=== PATIENT | male | born 1945 | race Caucasian/White ===

== ENCOUNTER → 2016-11-27 | Outpatient (CLI) | payer MEDICARE ==
[~2016-11-27] MED LIST: ASPI-587 PO; ATEN50TA; AZTH250C PO; CEFU500T5 PO; LISI20TA; OMEG-85 PO; WRF5T
--- OUTSIDE RECORDS SUMMARY | 2016-11-27 08:47 | XMS REPORT ---
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
--- NOTE | 2016-11-28 10:18 | ECHOCARDIOGRAPHY REPORT ---
PROCEDURE PHYSICIAN: SETH ENRIQUEZ DATE OF PROCEDURE: 11/27/2016 TWO DIMENSIONAL ECHOCARDIOGRAM REPORT PRIMARY PHYSICIAN: OTHER PHYSICIAN: REFERRING PHYSICIAN: Dr. Conn ORDERING PHYSICIAN: INDICATION FOR THE PROCEDURE: Hypertension MEASUREMENTS DERIVED VALUES LV DIAMETER (LAX) NORMALS NORMALS Diastolic 4.5 (3.6-5.2) Eject. Fract. 60% (60%+/-6%) Systolic (2.3-3.9) Diastolic Vol. % Shortening (0.22-0.42) Systolic Vol. Aortic Root IVS THICKNESS Diastolic 1.2 (0.6-1.1) LVPW THICKNESS Diastolic 1.2 (0.6-1.1) LA DIAMETER Systolic 4.2 (2.1-3.7) FINDINGS: 1. Technical quality is good. 2. The left ventricle is normal in size with moderate left ventricular hypertrophy noted diffusely. Systolic function appeared to be normal. Estimated ejection fraction 60%. Diastolic dysfunction is suggested by Doppler. 3. The left atrium is mildly dilated. No clot or thrombus were seen within the left atrium. 4. The right atrium and right ventricle are normal in size. No clot or thrombus were seen within the right side. 5. Mitral valve is normal in morphology with mild mitral regurgitation noted by color Doppler flow. No mitral valve prolapse. No mitral valve stenosis. 6. Aortic valve leaflets were not well visualized. There is no significant aortic valve stenosis or regurgitation was seen. 7. Tricuspid valve is normal in morphology with mild tricuspid regurgitation noted by color Doppler flow. Doppler across tricuspid valve estimated pulmonary artery pressure of 30+ right atrial pressure. 8. Pulmonic valve is functioning normally. 9. No pericardial effusion. CONCLUSION: 1. Normal left ventricular size with mild to moderate left ventricular hypertrophy noted diffusely. Systolic function appeared to be normal. Estimated ejection fraction 60%. Diastolic dysfunction is suggested by Doppler. 2. Left atrium is mildly dilated. 3. Mild mitral regurgitation. Mild tricuspid regurgitation. 4. Pulmonary hypertension with estimated pulmonary artery pressure of 40 mmHg. Job ID: [id number] Dictated Date: 11/27/2016 16:56:15 It Director Date: 11/28/2016 10:11:51 / parul
== END ==
LOC: CARD 08:44
PROVIDERS: ATTEND Internal Medicine Cardiovascular Disease
DX: I10 Essential (primary) hypertension (principal); E78.2 Mixed hyperlipidemia; E78.1 Pure hyperglyceridemia; I48.0 Paroxysmal atrial fibrillation
CPT/HCPCS: 93306

== ENCOUNTER → 2018-01-21 | Outpatient (CLI) | payer MEDICARE ==
[~2018-01-21] MED LIST changes: +CATHETER FLUSH 10 ML SYR IV PRN
[2018-01-21 09:25] VITALS: BP_SYST 167; BP_SYST 180; BP_DIAS 103; BP_DIAS 73
[2018-01-21 09:28] VITALS: BP 139/78
--- NOTE | 2018-01-21 17:46 | STRESS TEST ---
DATE OF SERVICE: 01/21/2018 EXERCISE MYOVIEW STRESS TEST REPORT REFERRING PHYSICIAN: Dr. Leonel Conn. Baseline heart rate is 98. Baseline blood pressure 136/75. Baseline EKG sinus rhythm with frequent PVCs, ventricular couplets. In summary, the patient was injected with 10.59 mCi of technetium-99 Myoview and the resting images were obtained. Then, the patient started to exercise with a baseline heart rate, blood pressure, EKG mentioned above. During exercise, the patient was noted to have frequent PVCs, ventricular couplets and few episodes of 3 to 4 beats nonsustained ventricular tachycardia. Blood pressure was 180/103. EKG otherwise showing minimal nondiagnostic changes. During recovery, heart rate and blood pressure returned to baseline. Continue to have frequent ectopy. The resting and stress images were reviewed and compared in the short axis, horizontal long axis, and vertical long axis views. Review of the images showed good radiotracer uptake with no significant ischemia or infarction on SPECT images. SSS is 0, TID value 1.02. On the gated images, the left ventricle appeared to be normal size with normal contractility. Calculated ejection fraction 77%. CONCLUSION: 1. Poor exercise tolerance a total of 3 minutes on standard Raymundo protocol, total of 4.6 METS achieving 97% of maximum expected heart rate. 2. Severe hypertensive response to exercise returned to baseline during recovery. 3. Frequent PVCs noted at rest and increased ectopy with exercise. Few episodes of nonsustained ventricular tachycardia with 3 to 4 beats noted during exercise. 4. No ischemia or infarction on SPECT images. 5. Normal left ventricular size with normal contractility. Calculated ejection fraction of 77%. Job ID: [id number] DocumentID: [id number] Dictated Date: 01/21/2018 14:12:37 It Administrative Assistant Date: 01/21/2018 17:45:43 Dictated By: SETH ENRIQUEZ MD
== END ==
LOC: CARD 07:09
PROVIDERS: ATTEND Internal Medicine Cardiovascular Disease
DX: I48.0 Paroxysmal atrial fibrillation (principal); I10 Essential (primary) hypertension; E78.5 Hyperlipidemia, unspecified
CPT/HCPCS: 78452; 93017

== ENCOUNTER → 2018-01-28 | Outpatient (CLI) | payer MEDICARE ==
[~2018-01-28] MED LIST changes: -CATHETER FLUSH 10 ML SYR IV PRN
== END ==
LOC: CARD 08:01
PROVIDERS: ATTEND Internal Medicine Interventional Cardiology
DX: I47.2 Ventricular tachycardia (principal); I48.0 Paroxysmal atrial fibrillation
CPT/HCPCS: 93225; 93226

== ENCOUNTER 2018-02-02 06:51 | Day surgery (SDC) | payer MEDICARE ==
[2018-02-02] VITALS (11 sets, daily range): BP systolic 115–153; BP diastolic 69–98
[~2018-02-02] VITALS: Ht 190.5 cm; Wt 89.8 kg
[~2018-02-02 06:51] MED LIST changes: -WRF5T; +WRF5T PO
[2018-02-02] MEDS ORDERED: HEParin (CATH LAB) 2,000 ML IV ONE (06:53)
[2018-02-02] MEDS ORDERED: NS IV 1000 ML 1,000 ML ONE (06:53)
--- OUTSIDE RECORDS SUMMARY | 2018-02-02 06:54 | XMS REPORT ---
Author JESSICA Fofana [facility] eClinicalWorks Address Unknown Phone Unavailable Care Team Providers Care Bulk Station Operator Name Role Phone JESSICA BROWN CP Unavailable Allergies No Known Allergies Problems No Known Problems Medications No Known Medications Procedures Procedure Coding System Code Date SINGLE IMMUNIZATION ADMIN CPT-4 98847 February 22, 2016 PCV 13 CPT-4 43027 February 22, 2016 Results No Known Results Immunizations Vaccine Administration Date PCV 13 February 22, 2016 Summary Purpose eClinicalWorks Submission
[2018-02-02] MEDS ORDERED: NS IV 1000 ML 1,000 ML IV SCH ×2 (07:00→08:54)
[2018-02-02 07:18] LABS: HEMOGLOBIN 15.4 G/DL (13.3-17.7); MEAN PLATELET VOLUME 10.9 FL (7.4-10.4); RED BLOOD COUNT 4.7 10^6/uL (4.35-5.85); RED CELL DISTRIBUTION WIDTH 13.4 % (10.0-14.5); WHITE BLOOD COUNT 6.1 10^3/uL (4.3-11.0)
--- NOTE | 2018-02-02 07:23 | Diagnostic Imaging Report ---
CLINICAL INDICATION: Precath with possible coronary angioplasty/stent. No chest complaints. EXAM: Portable chest x-ray upright view. COMPARISONS: Chest x-ray dated 02/16/2014. FINDINGS: Lungs/pleura: Lungs are clear. There is no pneumothorax. There is no pleural effusion. Mediastinum: Unremarkable. Pulmonary vasculature: Unremarkable. Heart: Unremarkable. Bones/extrathoracic soft tissue: There are moderately hypertrophic spurs seen throughout the thoracic spine. IMPRESSION: There is no radiographic evidence of acute cardiopulmonary process. Dictated by: Dictated on workstation # [id number]
[2018-02-02] MEDS ORDERED: METO50TA15 PO (07:32)
[2018-02-02] MEDS ORDERED: WARF-48 PO (07:32)
[2018-02-02] MEDS ORDERED: METF500T4 PO (07:32)
[2018-02-02] MEDS ORDERED: LOSA100T28 PO (07:32)
[2018-02-02 07:41] LABS: INR 1.3 (0.8-1.4); PROTHROMBIN TIME PATIENT 16.5 SEC (12.2-14.7)
[2018-02-02 07:47] LABS: ALANINE AMINOTRANSFERASE 28 U/L (0-55); ALBUMIN 4.5 GM/DL (3.2-4.5); ALKALINE PHOSPHATASE 65 U/L (40-136); BILIRUBIN,TOTAL 1.4 MG/DL (0.1-1.0); BUN/CREATININE RATIO 23; CALCIUM 9.5 MG/DL (8.5-10.1); CARBON DIOXIDE 28 MMOL/L (21-32); CHLORIDE 104 MMOL/L (98-107); CHOLESTEROL 151 MG/DL (< 200); CREATININE SERUM 1.02 MG/DL (0.60-1.30); GFR ESTIMATED > 60; GLUCOSE 166 MG/DL (70-105); HDL CHOLESTEROL 46 MG/DL (40-60); POTASSIUM 3.6 MMOL/L (3.6-5.0); SODIUM 141 MMOL/L (135-145); TRIGLYCERIDES 85 MG/DL (<150); VLDL CHOLESTEROL 17 MG/DL (5-40)
[2018-02-02] MEDS ORDERED: LIDOCAINE 1% INJ 50 ML (XYLOCAINE) VIAL ONE (08:02)
[2018-02-02] MEDS ORDERED: fentaNYL INJECTION 100 MCG/2 ML AMP ONE (08:22)
[2018-02-02] MEDS ORDERED: MIDAZOLAM 5 MG/5 ML (VERSED) VIAL ONE (08:22)
--- NOTE | 2018-02-02 08:24 | Cardiac Procedure Note-CS/ASA ---
Pre-Procedure Note Pre-Op Procedure Note H&P Reviewed The H&P was reviewed, patient examined and no changes noted. Date H&P Reviewed: Feb 02, 2018 Time H&P Reviewed: 08:24 Conscious Sedation Pre-Proced Time Reviewed: 08:24 ASA Class: 3 Airway Mallampati Classification: (douglas appropriate class) I. II. III, IV Lungs Heart ASA score ASA 1: a normal healthy patient ASA 2: a patient with a mild systemic disease (mid diabetes, controlled hypertension, obesity X ASA 3: a patient with a severe systemic disease that limits activity (angina , COPD, prior Myocardial infarction) ASA 4: a patient with an incapacitating disease that is a constant threat to life (CHF, renal failure) ASA 5: a moribund patient not expected to survive 24 hrs. (ruptured aneurysm) ASA 6: a declared brain patient whose organs are being harvested. For emergent operations, add the letter E after the classification Grade 3 Sedation Plan: Analgesia, Amnesia, Plan communicated to team members, Discussed options with patient/fam, Discussed risks with patient/fam Note The patient is an appropriate candidate to undergo the planned procedure, sedation, and anesthesia. The patient immediately re-assessed prior to indication. SETH ENRIQUEZ MD Feb 02, 2018 08:24
--- NOTE | 2018-02-02 08:57 | Discharge Inst-Post CATH ---
Discharge Inst-CATH Post Cardiac Cath D/C Inst Follow Up/Plan Hold Metformin for 48 hours Start Coumadin today PT/INR in one week Appointment with Dr Nobles in [address] García this week CARDIAC CATH DISCHARGE INSTRUCTIONS *Hold Metformin for 48 hours post heart cath. ACTIVITY * Go Home directly and rest. * Limit activity of the leg (or wrist if it was used) for 7 days including aerobics, swimming, jogging, bicycling, etc. * Restrict stair-climbing for 7 days if possible, if not, climb up with your non -cath leg, then bring together on the same step. * Avoid lifting, pushing, pulling or excessive movement of the affected extremity for 7 days. * Customary sexual activity may be resumed after 2 days-use caution not to use a position that strains or causes pain to the affected extremity. * No driving for 24 hours. * NO SMOKING. * Avoid straining for bowel movements for 7 days. * Gentle walking on level ground is allowed. * Returning to work will depend on the type of procedure and the results. Your doctor will discuss this with you. CALL YOUR DOCTOR FOR ANY OF THE FOLLOWING: *If bleeding from the puncture site occurs- Apply gentle pressure to site with clean cloth and call your doctor or EMS. * If a knot or lump forms under the skin, increases in size, or causes pain. * If bruising appears to be worsening or moving further down your leg instead of disappearing. * Temperature above 101 F. CARE OF YOUR GROIN INCISION; * Bruising or purple discoloration of the skin near the puncture site is common. * You may shower only, no bathtub bathing for 5 days. Be careful to avoid slipping as your leg may feel stiff. * If a closure device was used on your femoral artery, please see the attached guide regarding care of the device and your leg. * REMOVE the dressing from your groin the next day after your procedure in the shower. CARE OF YOUR WRIST INCISION; * Bruising or purple discoloration of the skin near the puncture site is common. * You may shower. * DO NOT submerge wrist. * Remove dressing in 24 hours. SETH NOBLES MD Feb 02, 2018 08:57
[2018-02-02] MEDS ORDERED: PATIENT MAY USE OWN MEDS, ALL PO SCH (09:00)
--- NOTE | 2018-02-02 09:02 | Cardiac Cath Report ---
Cardiac Cath Report Physician (s)/Business Mail Entry Clerk (s) Physician SETH ENRIQUEZ MD Pre-Procedure Diagnosis Pre-Procedure Diagnosis: Nonsustained ventricular tachycardia Post-Procedure Note Procedure Start Date: Feb 02, 2018 Name of Procedure: Left heart catheterization Aortic root angiogram Findings/Procedure Note PROCEDURE NOTE: 72 years old gentleman with history of diabetes mellitus, history of atrial septal defect repair, noted to have frequent premature ventricular contractions and multiple episodes of nonsustained ventricular tachycardia, had a normal stress test, referred for EP evaluation, recommendation was to proceed with coronary angiogram and rule out any underlying coronary artery disease. After explaining the procedure to the patient, all pros and cons were explained, all questions were answered. The patient signed the consent and then she was placed on the cardiac catheterization laboratory. The patient was placed on the cardiac catheterization laboratory. Groin was prepped SL fashion local anesthesia was used. Sheath placed in the right femoral artery. Shelbi right and left catheter were used to access the coronary system. Pigtail was used to access the left ventricular cavity. Left ventriculogram was done Aortic root angiogram was done At the end of the procedure the sheath was removed. Closure device was used FINDINGS: Hemodynamics LV 123/17, end-diastolic pressure of 17 Aorta 116/59 mean of 81 ANATOMY: Left Main is free of obstructive disease Left Anterior Descending has mild to moderate disease in the proximal portion, nonobstructive disease Left Circumflex is dominant artery with mild disease nonobstructive disease Right Coronory Artery a small nondominant artery with no obstructive disease LV Gram was done in the right anterior oblique and left anterior oblique position, normal left ventricular size and function and normal contractility estimated ejection fraction 60 percent Aorta evaluation done with aortic root angiogram which showed the aortic root is normal, aortic valve is normal, ascending aorta portion of the aortic arch and descending aorta were normal Fluoroscopy showed closure device probably at the intra-atrial septum for ASD CONCLUSION: 1. Mild to moderate disease in the proximal LAD, nonobstructive disease 2. Dominant left circumflex system with no significant obstructive disease 3. Normal left ventricular size and systolic function estimated ejection fraction 60 percent 4. Normal aortic root and thoracic aorta DISCUSSION AND RECOMMENDATION: I will continue maximizing medical therapy. Arrange for EP evaluation as soon as possible Anesthesia Type: Conscious Sedation Estimated blood loss (mL): 10 ml Contrast Amount: 83 ml Total Radiation Dose: 646 mGy Post-Procedure Diagnosis Post-operative diagnosis: Nonsustained ventricular tachycardia Coronary artery disease Atrial septal defect Diabetes mellitus SETH ENRIQUEZ MD Feb 02, 2018 09:01
== END 2018-02-02 13:52 | disposition home or self-care (01) ==
LOC: CATH 06:51 → SURG 09:24 → CATH 13:52
PROVIDERS: ATTEND Internal Medicine Cardiovascular Disease
DX: I47.2 Ventricular tachycardia (principal); E11.9 Type 2 diabetes mellitus without complications; I25.10 Atherosclerotic heart disease of native coronary artery without angina pectoris; I48.0 Paroxysmal atrial fibrillation; I65.29 Occlusion and stenosis of unspecified carotid artery; Z88.1 Allergy status to other antibiotic agents; Z88.0 Allergy status to penicillin; Z88.8 Allergy status to other drugs, medicaments and biological substances; Z79.899 Other long term (current) drug therapy; Z79.01 Long term (current) use of anticoagulants; Z79.82 Long term (current) use of aspirin; I11.9 Hypertensive heart disease without heart failure; E78.5 Hyperlipidemia, unspecified; E78.1 Pure hyperglyceridemia; Z11.2 Encounter for screening for other bacterial diseases
CPT/HCPCS: 36415; 71045; 80053; 80061; 85027; 85610; 85730; 87081; 93005; 93458; 93567

== ENCOUNTER → 2018-02-12 | Outpatient (CLI) | payer MEDICARE ==
[~2018-02-12] MED LIST changes: +LOSA100T28 PO; +METF500T4 PO; +METO50TA15 PO; +WARF-48 PO
== END ==
LOC: CARD 13:54
PROVIDERS: ATTEND Internal Medicine Interventional Cardiology
DX: I48.0 Paroxysmal atrial fibrillation (principal); I47.2 Ventricular tachycardia; I11.9 Hypertensive heart disease without heart failure; E78.5 Hyperlipidemia, unspecified
CPT/HCPCS: 93225; 93226

== ENCOUNTER → 2018-10-14 | Day surgery (SDC) | payer MEDICARE ==
[~2018-10-14] VITALS: Ht 190.5 cm; Wt 89.8 kg
[~2018-10-14] MED LIST changes: +LIDOCAINE 1% INJ 20 ML 20 ML VIAL ONE; -LOSA100T28 PO; +LOSA100T8 PO; +METF-397 PO; -METF500T4 PO
[2018-10-14 09:16] VITALS: BP 119/64
--- NOTE | 2018-10-14 10:05 | Implantation of Loop Monitor ---
Implant of Loop Monitior IMPLANTATION OF LOOP MONITOR REPORT DATE OF PROCEDURE: 10/14/18 PREOP DIAGNOSIS: paroxysmal atrial fibrillation POSTOP DIAGNOSIS: paroxysmal atrial fibrillation PROCEDURE DETAILS: The patient is a 72 male with history of paroxysmal atrial fibrillation requiring long-term surveillance. Therefore implantable loop recorder was discussed and agreed with the patient. Informed consent was taken. All risks and complications were discussed at length. The patient was draped and prepped in the usual sterile fashion. Local anesthesia was lidocaine, which was given in the substernal area close to the 4th intercostal space. Loop monitor [employer]onic [id number] was implanted according to the protocol. Steri-Strips were placed at the end of the procedure. There were no complications and the patient tolerated the procedure well. ANESTHESIA: Local anesthesia with lidocaine. COMPLICATIONS: None CONTRAST/FLUOROSCOPY: None CONCLUSION: successful loop recorder implantation with no complication FINAL DIAGNOSIS: Paroxysmal atrial fibrillation Hypertension SETH ENRIQUEZ MD Oct 14, 2018 10:05
--- OUTSIDE RECORDS SUMMARY | 2018-10-14 10:05 | XMS REPORT | Continuity of Care Document ---
Author Author [facility] Organization [facility] Address Unknown Phone Unavailable Allergies Active Description Code Type Severity Reaction Onset Reported/Identified Relationship to Patient Clinical Status Yes PCN PCN Mild N/A 03/25/2009 Yes Penicillins [id number] Drug Allergy Unknown N/A 05/31/2015 Yes amiodarone [id number] Drug Allergy Unknown N/A 02/02/2018 Yes diltiazem [id number] Drug Allergy Unknown N/A 02/02/2018 Yes sulfamethoxazole [id number] Drug Allergy Unknown N/A 02/02/2018 Yes trimethoprim [id number] Drug Allergy Unknown N/A 02/02/2018 Medications There is no data. Problems Date Dx Coded Attending Type Code Diagnosis Diagnosed By 02/16/2014 ANEL PURDY, GEORGIA Gannon Ot 462 ACUTE PHARYNGITIS 02/16/2014 GEORGIA TAM MD Ot 486 PNEUMONIA, ORGANISM NOS 02/16/2014 ANEL PURDY, GEOR[place]IA Gannon Ot 780.60 FEVER, UNSPECIFIED 02/16/2014 ANEL PURDY, GEORGIA Gannon Ot 787.01 NAUSEA WITH VOMITING 02/16/2014 ANEL PURDY, GEORGIA Gannon Ot 787.91 DIARRHEA 12/10/2014 ANGY PURDY, DANA Faye Ot 793.11 12/19/2014 DANA TRAVIS MD Ot 793.11 06/23/2015 MINA PURDY, SETH Draper Ot 272.4 06/23/2015 SETH ENRIQUEZ MD Ot 401.9 06/23/2015 SETH ENRIQUEZ MD Ot 427.31 06/23/2015 SETH ENRIQUEZ MD Ot 433.10 06/29/2015 SETH ENRIQUEZ MD Ot 272.4 06/29/2015 SETH ENRIQUEZ MD Ot 401.9 06/29/2015 SETH ENRIQUEZ MD Ot 427.31 06/29/2015 SETH ENRIQUEZ MD Ot 433.10 11/27/2016 SETH ENRIQUEZ MD Ot 427.31 ATRIAL FIBRILLATION 11/27/2016 DANA TRAVIS MD Ot 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 11/27/2016 DANA TRAVIS MD Ot 447.8 ARTERIAL DISEASE NEC 11/27/2016 DANA TRAVIS MD Ot 793.19 OTHER NONSPECIFIC ABNORMAL FINDING OF ALICIA 11/27/2016 MICHAEL CADENA KEVYN K Ot 272.4 HYPERLIPIDEMIA NEC/NOS 11/27/2016 MICHAEL CADENA, KEVYN K Ot 397.0 TRICUSPID VALVE DISEASE 11/27/2016 MICHAEL CADENA KEVYN K Ot 401.9 HYPERTENSION NOS 11/27/2016 MICHAEL CADENA KEVYN K Ot 424.0 MITRAL VALVE DISORDER 11/27/2016 MICHAEL CADENA KEVYN K Ot 427.31 ATRIAL FIBRILLATION 11/27/2016 MICHAEL CADENA KEVYN K Ot 433.10 CAROTID ARTERY OCCLUSION W O CEREBRAL IN 11/27/2016 DANA TRAVIS MD Ot 793.11 SOLITARY PULMONARY NODULE 11/27/2016 SETH ENRIQUEZ MD Ot 272.4 HYPERLIPIDEMIA NEC/NOS 11/27/2016 SETH ENRIQUEZ MD Ot 401.9 HYPERTENSION NOS 11/27/2016 SETH ENRIQUEZ MD Ot 427.31 ATRIAL FIBRILLATION 11/27/2016 SETH ENRIQUEZ MD Ot 433.10 CAROTID ARTERY OCCLUSION W O CEREBRAL IN 11/28/2016 SETH ENRIQUEZ MD Ot E78.1 PURE HYPERGLYCERIDEMIA 11/28/2016 SETH ENRIQUEZ MD Ot E78.2 MIXED HYPERLIPIDEMIA 11/28/2016 SETH ENRIQUEZ MD Ot I10 ESSENTIAL (PRIMARY) HYPERTENSION 11/28/2016 SETH ENRIQUEZ MD Ot I48.0 PAROXYSMAL ATRIAL FIBRILLATION 11/29/2016 SETH ENRIQUEZ MD Ot E78.1 PURE HYPERGLYCERIDEMIA 11/29/2016 SETH ENRIQUEZ MD Ot E78.2 MIXED HYPERLIPIDEMIA 11/29/2016 SETH ENRIQUEZ MD Ot I10 ESSENTIAL (PRIMARY) HYPERTENSION 11/29/2016 SETH ENRIQUEZ MD Ot I48.0 PAROXYSMAL ATRIAL FIBRILLATION 12/20/2016 SETH ENRIQUEZ MD Ot E78.1 PURE HYPERGLYCERIDEMIA 12/20/2016 SETH ENRIQUEZ MD Ot E78.2 MIXED HYPERLIPIDEMIA 12/20/2016 SETH ENRIQUEZ MD Ot I10 ESSENTIAL (PRIMARY) HYPERTENSION 12/20/2016 SETH ENRIQUEZ MD Ot I48.0 PAROXYSMAL ATRIAL FIBRILLATION 12/25/2016 SETH ENRIQUEZ MD Ot E78.1 PURE HYPERGLYCERIDEMIA 12/25/2016 SETH ENRIQUEZ MD Ot E78.2 MIXED HYPERLIPIDEMIA 12/25/2016 SETH ENRIQUEZ MD Ot I10 ESSENTIAL (PRIMARY) HYPERTENSION 12/25/2016 SETH ENRIQUEZ MD Ot I48.0 PAROXYSMAL ATRIAL FIBRILLATION 01/19/2018 SETH ENRIQUEZ MD Ot 427.31 ATRIAL FIBRILLATION 01/19/2018 ANGY PURDY, DANA Faye Ot 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 01/19/2018 DANA TRAVIS MD Ot 447.8 ARTERIAL DISEASE NEC 01/19/2018 DANA TRAVIS MD Ot 793.19 OTHER NONSPECIFIC ABNORMAL FINDING OF ALICIA 01/19/2018 ALICIA PERSAUDTH K Ot 272.4 HYPERLIPIDEMIA NEC/NOS 01/19/2018 ALICIA PERSAUDTH K Ot 397.0 TRICUSPID VALVE DISEASE 01/19/2018 ALICIA PERSAUDTH K Ot 401.9 HYPERTENSION NOS 01/19/2018 ALICIA PERSAUDTH K Ot 424.0 MITRAL VALVE DISORDER 01/19/2018 ALICIA PERSAUDTH K Ot 427.31 ATRIAL FIBRILLATION 01/19/2018 KEVYN PERSAUD K Ot 433.10 CAROTID ARTERY OCCLUSION W O CEREBRAL IN 01/19/2018 DANA TRAVIS MD Ot 793.11 SOLITARY PULMONARY NODULE 01/19/2018 SETH ENRIQUEZ MD Ot 272.4 HYPERLIPIDEMIA NEC/NOS 01/19/2018 SETH ENRIQUEZ MD Ot 401.9 HYPERTENSION NOS 01/19/2018 SETH ENRIQUEZ MD Ot 427.31 ATRIAL FIBRILLATION 01/19/2018 SETH ENRIQUEZ MD Ot 433.10 CAROTID ARTERY OCCLUSION W O CEREBRAL IN 01/19/2018 SETH ENRIQUEZ MD Ot E78.1 PURE HYPERGLYCERIDEMIA 01/19/2018 SETH ENRIQUEZ MD Ot E78.2 MIXED HYPERLIPIDEMIA 01/19/2018 SETH ENRIQUEZ MD Ot I10 ESSENTIAL (PRIMARY) HYPERTENSION 01/19/2018 SETH ENRIQUEZ MD Ot I48.0 PAROXYSMAL ATRIAL FIBRILLATION 01/22/2018 SETH ENRIQUEZ MD Ot E78.5 HYPERLIPIDEMIA, UNSPECIFIED 01/22/2018 SETH ENRIQUEZ MD Ot I10 ESSENTIAL (PRIMARY) HYPERTENSION 01/22/2018 SETH ENRIQUEZ MD Ot I48.0 PAROXYSMAL ATRIAL FIBRILLATION 01/27/2018 LOLY PURDY, Kaila CORMIER Ot I47.2 VENTRICULAR TACHYCARDIA 01/29/2018 LOLY PURDY, Kaila CORMIER Ot I47.2 VENTRICULAR TACHYCARDIA 01/29/2018 Kaila SALCIDO MD Ot I48.0 PAROXYSMAL ATRIAL FIBRILLATION 02/02/2018 SETH ENRIQUEZ MD Ot E11.9 TYPE 2 DIABETES MELLITUS WITHOUT COMPLIC 02/02/2018 SETH ENRIQUEZ MD Ot E78.1 PURE HYPERGLYCERIDEMIA 02/02/2018 SETH ENRIQUEZ MD Ot E78.5 HYPERLIPIDEMIA, UNSPECIFIED 02/02/2018 SETH ENRIQUEZ MD Ot I11.9 HYPERTENSIVE HEART DISEASE WITHOUT HEART 02/02/2018 SETH ENRIQUEZ MD Ot 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 02/02/2018 SETH ENRIQUEZ MD Ot I47.2 VENTRICULAR TACHYCARDIA 02/02/2018 SETH ENRIQUEZ MD Ot I48.0 PAROXYSMAL ATRIAL FIBRILLATION 02/02/2018 SETH ENRIQUEZ MD Ot I65.29 OCCLUSION AND STENOSIS OF UNSPECIFIED CA 02/02/2018 SETH ENRIQUEZ MD Ot Z11.2 ENCOUNTER FOR SCREENING FOR OTHER BACTER 02/02/2018 SETH ENRIQUEZ MD Ot Z79.01 SUPERVISOR INVENTORY MERCHANDISING (CURRENT) USE OF ANTICOAGULANT 02/02/2018 SETH ENRIQUEZ MD Ot Z79.82 PENITENTIARY (CURRENT) USE OF ASPIRIN 02/02/2018 SETH ENRIQUEZ MD Ot Z79.899 OTHER SUPERVISOR INVENTORY MERCHANDISING (CURRENT) DRUG THERAPY 02/02/2018 SETH ENRIQUEZ MD Ot Z88.0 ALLERGY STATUS TO PENICILLIN 02/02/2018 SETH ENRIQUEZ MD Ot Z88.1 ALLERGY STATUS TO OTHER ANTIBIOTIC AGENT 02/02/2018 SETH ENRIQUEZ MD Ot Z88.8 ALLERGY STATUS TO OTH DRUG/MEDS/BIOL SUB 02/03/2018 SETH ENRIQUEZ MD Ot E11.9 TYPE 2 DIABETES MELLITUS WITHOUT COMPLIC 02/03/2018 SETH ENRIQUEZ MD Ot E78.1 PURE HYPERGLYCERIDEMIA 02/03/2018 SETH ENRIQUEZ MD Ot E78.5 HYPERLIPIDEMIA, UNSPECIFIED 02/03/2018 SETH ENRIQUEZ MD Ot I11.9 HYPERTENSIVE HEART DISEASE WITHOUT HEART 02/03/2018 SETH ENRIQUEZ MD Ot 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 02/03/2018 SETH ENRIQUEZ MD Ot I47.2 VENTRICULAR TACHYCARDIA 02/03/2018 SETH ENRIQUEZ MD Ot I48.0 PAROXYSMAL ATRIAL FIBRILLATION 02/03/2018 SETH ENRIQUEZ MD Ot I65.29 OCCLUSION AND STENOSIS OF UNSPECIFIED CA 02/03/2018 SETH ENRIQUEZ MD Ot Z11.2 ENCOUNTER FOR SCREENING FOR OTHER BACTER 02/03/2018 SETH ENRIQUEZ MD Ot Z79.01 PENITENTIARY (CURRENT) USE OF ANTICOAGULANT 02/03/2018 SETH ENRIQUEZ MD Ot Z79.82 SUPERVISOR INVENTORY MERCHANDISING (CURRENT) USE OF ASPIRIN 02/03/2018 SETH ENRIQUEZ MD Ot Z79.899 OTHER PENITENTIARY (CURRENT) DRUG THERAPY 02/03/2018 SETH ENRIQUEZ MD Ot Z88.0 ALLERGY STATUS TO PENICILLIN 02/03/2018 SETH ENRIQUEZ MD Ot Z88.1 ALLERGY STATUS TO OTHER ANTIBIOTIC AGENT 02/03/2018 SETH ENRIQUEZ MD Ot Z88.8 ALLERGY STATUS TO OT DRUG/MEDS/BIOL SUB 02/03/2018 SETH ENRIQUEZ MD Ot E11.9 TYPE 2 DIABETES MELLITUS WITHOUT COMPLIC 02/03/2018 SETH ENRIQUEZ MD Ot E78.1 PURE HYPERGLYCERIDEMIA 02/03/2018 SETH ENRIQUEZ MD Ot E78.5 HYPERLIPIDEMIA, UNSPECIFIED 02/03/2018 SETH ENRIQUEZ MD Ot I11.9 HYPERTENSIVE HEART DISEASE WITHOUT HEART 02/03/2018 SETH ENRIQUEZ MD Ot 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 02/03/2018 SETH ENRIQUEZ MD Ot I47.2 VENTRICULAR TACHYCARDIA 02/03/2018 SETH ENRIQUEZ MD Ot I48.0 PAROXYSMAL ATRIAL FIBRILLATION 02/03/2018 SETH ENRIQUEZ MD Ot I65.29 OCCLUSION AND STENOSIS OF UNSPECIFIED CA 02/03/2018 SETH ENRIQUEZ MD Ot Z11.2 ENCOUNTER FOR SCREENING FOR OTHER BACTER 02/03/2018 SETH ENRIQUEZ MD Ot Z79.01 SUPERVISOR INVENTORY MERCHANDISING (CURRENT) USE OF ANTICOAGULANT 02/03/2018 SETH ENRIQUEZ MD Ot Z79.82 SUPERVISOR INVENTORY MERCHANDISING (CURRENT) USE OF ASPIRIN 02/03/2018 SETH ENRIQUEZ MD Ot Z79.899 OTHER SUPERVISOR INVENTORY MERCHANDISING (CURRENT) DRUG THERAPY 02/03/2018 SETH ENRIQUEZ MD Ot Z88.0 ALLERGY STATUS TO PENICILLIN 02/03/2018 SETH ENRIQUEZ MD Ot Z88.1 ALLERGY STATUS TO OTHER ANTIBIOTIC AGENT 02/03/2018 SETH ENRIQUEZ MD Ot Z88.8 ALLERGY STATUS TO OT DRUG/MEDS/BIOL SUB 02/04/2018 SETH ENRIQUEZ MD Ot E11.9 TYPE 2 DIABETES MELLITUS WITHOUT COMPLIC 02/04/2018 SETH ENRIQUEZ MD Ot E78.1 PURE HYPERGLYCERIDEMIA 02/04/2018 SETH ENRIQUEZ MD Ot E78.5 HYPERLIPIDEMIA, UNSPECIFIED 02/04/2018 SETH ENRIQUEZ MD Ot I11.9 HYPERTENSIVE HEART DISEASE WITHOUT HEART 02/04/2018 SETH ENRIQUEZ MD Ot 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 02/04/2018 SETH ENRIQUEZ MD Ot I47.2 VENTRICULAR TACHYCARDIA 02/04/2018 SETH ENRIQUEZ MD Ot I48.0 PAROXYSMAL ATRIAL FIBRILLATION 02/04/2018 SETH ENRIQUEZ MD Ot I65.29 OCCLUSION AND STENOSIS OF UNSPECIFIED CA 02/04/2018 SETH ENRIQUEZ MD Ot Z11.2 ENCOUNTER FOR SCREENING FOR OTHER BACTER 02/04/2018 SETH ENRIQUEZ MD Ot Z79.01 SUPERVISOR INVENTORY MERCHANDISING (CURRENT) USE OF ANTICOAGULANT 02/04/2018 SETH ENRIQUEZ MD Ot Z79.82 SUPERVISOR INVENTORY MERCHANDISING (CURRENT) USE OF ASPIRIN 02/04/2018 SETH ENRIQUEZ MD Ot Z79.899 OTHER SUPERVISOR INVENTORY MERCHANDISING (CURRENT) DRUG THERAPY 02/04/2018 SETH ENRIQUEZ MD Ot Z88.0 ALLERGY STATUS TO PENICILLIN 02/04/2018 SETH ENRIQUEZ MD Ot Z88.1 ALLERGY STATUS TO OTHER ANTIBIOTIC AGENT 02/04/2018 SETH ENRIQUEZ MD Ot Z88.8 ALLERGY STATUS TO OTH DRUG/MEDS/BIOL SUB 02/08/2018 SETH ENRIQUEZ MD Ot E11.9 TYPE 2 DIABETES MELLITUS WITHOUT COMPLIC 02/08/2018 SETH ENRIQUEZ MD Ot E78.1 PURE HYPERGLYCERIDEMIA 02/08/2018 SETH ENRIQUEZ MD Ot E78.5 HYPERLIPIDEMIA, UNSPECIFIED 02/08/2018 SETH ENRIQUEZ MD Ot I11.9 HYPERTENSIVE HEART DISEASE WITHOUT HEART 02/08/2018 SETH ENRIQUEZ MD Ot 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 02/08/2018 SETH ENRIQUEZ MD Ot I47.2 VENTRICULAR TACHYCARDIA 02/08/2018 SETH ENRIQUEZ MD Ot I48.0 PAROXYSMAL ATRIAL FIBRILLATION 02/08/2018 SETH ENRIQUEZ MD Ot I65.29 OCCLUSION AND STENOSIS OF UNSPECIFIED CA 02/08/2018 SETH ENRIQUEZ MD Ot Z11.2 ENCOUNTER FOR SCREENING FOR OTHER BACTER 02/08/2018 SETH ENRIQUEZ MD Ot Z79.01 SUPERVISOR INVENTORY MERCHANDISING (CURRENT) USE OF ANTICOAGULANT 02/08/2018 SETH ENRIQUEZ MD Ot Z79.82 PENITENTIARY (CURRENT) USE OF ASPIRIN 02/08/2018 SETH ENRIQUEZ MD Ot Z79.899 OTHER PENITENTIARY (CURRENT) DRUG THERAPY 02/08/2018 SETH ENRIQUEZ MD Ot Z88.0 ALLERGY STATUS TO PENICILLIN 02/08/2018 SETH ENIRQUEZ MD Ot Z88.1 ALLERGY STATUS TO OTHER ANTIBIOTIC AGENT 02/08/2018 SETH ENRIQUEZ MD Ot Z88.8 ALLERGY STATUS TO OT DRUG/MEDS/BIOL SUB 02/10/2018 SETH ENRIQUEZ MD Ot E78.5 HYPERLIPIDEMIA, UNSPECIFIED 02/10/2018 SETH ENRIQUEZ MD Ot I10 ESSENTIAL (PRIMARY) HYPERTENSION 02/10/2018 SETH ENRIQUEZ MD Ot I48.0 PAROXYSMAL ATRIAL FIBRILLATION 02/12/2018 SETH ENRIQUEZ MD Ot E78.5 HYPERLIPIDEMIA, UNSPECIFIED 02/12/2018 SETH ENRIQUEZ MD Ot I10 ESSENTIAL (PRIMARY) HYPERTENSION 02/12/2018 MINA PURDY, BASANTONY Draper Ot I48.0 PAROXYSMAL ATRIAL FIBRILLATION 02/16/2018 LOLY PURDY, Kaila CORMIER Ot E78.5 HYPERLIPIDEMIA, UNSPECIFIED 02/16/2018 LOLY PURDY, Kaila CORMIER Ot I11.9 HYPERTENSIVE HEART DISEASE WITHOUT HEART 02/16/2018 LOLY PURDY, Kaila CORMIER Ot I47.2 VENTRICULAR TACHYCARDIA 02/16/2018 LOLY PURDY, Kaila CORMIER Ot I48.0 PAROXYSMAL ATRIAL FIBRILLATION 02/26/2018 LOLY PURDY, Kaila CORMIER Ot I47.2 VENTRICULAR TACHYCARDIA 02/26/2018 LOLY PURDY, M GENIA Ot I48.0 PAROXYSMAL ATRIAL FIBRILLATION 03/05/2018 LOLY PURDY, Kaila CORMIER Ot E78.5 HYPERLIPIDEMIA, UNSPECIFIED 03/05/2018 LOLY PURDY, Kaila CORMIER Ot I11.9 HYPERTENSIVE HEART DISEASE WITHOUT HEART 03/05/2018 LOLY PURDY, Kaila CORMIER Ot I47.2 VENTRICULAR TACHYCARDIA 03/05/2018 LOLY PURDY, Kaila CORMIER Ot I48.0 PAROXYSMAL ATRIAL FIBRILLATION 03/11/2018 LOLY PURDY, Kaila CORMIER Ot E78.5 HYPERLIPIDEMIA, UNSPECIFIED 03/11/2018 LOLY PURDY, Kaila CORMIER Ot I11.9 HYPERTENSIVE HEART DISEASE WITHOUT HEART 03/11/2018 LOLY PURDY, Kaila CORMIER Ot I47.2 VENTRICULAR TACHYCARDIA 03/11/2018 Kaila SALCIDO MD Ot I48.0 PAROXYSMAL ATRIAL FIBRILLATION Procedures There is no data. Results Test Result Range Automated blood complete blood count (hemogram) panel - 02/02/18 07:11 Blood leukocytes automated count (number/volume) 6.1 10*3/uL 4.3-11.0 Blood erythrocytes automated count (number/volume) 4.70 10*6/uL 4.35-5.85 Venous blood hemoglobin measurement (mass/volume) 15.4 g/dL 13.3-17.7 Blood hematocrit (volume fraction) 45 % 40-54 Automated erythrocyte mean corpuscular volume 96 [foz_us] 80-99 Automated erythrocyte mean corpuscular hemoglobin (mass per erythrocyte) 33 pg 25-34 Automated erythrocyte mean corpuscular hemoglobin concentration measurement ( mass/volume) 34 g/dL 32-36 Automated erythrocyte distribution width ratio 13.4 % 10.0-14.5 Automated blood platelet count (count/volume) 163 10*3/uL 130-400 Automated blood platelet mean volume measurement 10.9 [foz_us] 7.4-10.4 PT panel in platelet poor plasma by coagulation assay - 02/02/18 07:11 Prothrombin time (PT) in platelet poor plasma by coagulation assay 16.5 s 12.2-14.7 INR in platelet poor plasma or blood by coagulation assay 1.3 0.8-1.4 Activated partial thromboplastin time (aPTT) in platelet poor plasma bycoagulation assay - 02/02/18 07:11 Activated partial thromboplastin time (aPTT) in platelet poor plasma bycoagulation assay 28 s 24-35 Comprehensive metabolic panel - 02/02/18 07:11 Serum or plasma sodium measurement (moles/volume) 141 mmol/L 135-145 Serum or plasma potassium measurement (moles/volume) 3.6 mmol/L 3.6-5.0 Serum or plasma chloride measurement (moles/volume) 104 mmol/L 98-107 Carbon dioxide 28 mmol/L 21-32 Serum or plasma anion gap determination (moles/volume) 9 mmol/L 5-14 Serum or plasma urea nitrogen measurement (mass/volume) 23 mg/dL 7-18 Serum or plasma creatinine measurement (mass/volume) 1.02 mg/dL 0.60-1.30 Serum or plasma urea nitrogen/creatinine mass ratio 23 NRG Serum or plasma creatinine measurement with calculation of estimated glomerular filtration rate > NRG Serum or plasma glucose measurement (mass/volume) 166 mg/dL 70-105 Serum or plasma calcium measurement (mass/volume) 9.5 mg/dL 8.5-10.1 Serum or plasma total bilirubin measurement (mass/volume) 1.4 mg/dL 0.1-1.0 Serum or plasma alkaline phosphatase measurement (enzymatic activity/volume) 65 U/L 40-136 Serum or plasma aspartate aminotransferase measurement (enzymatic activity/ volume) 27 U/L 5-34 Serum or plasma alanine aminotransferase measurement (enzymatic activity/volume ) 28 U/L 0-55 Serum or plasma protein measurement (mass/volume) 7.0 g/dL 6.4-8.2 Serum or plasma albumin measurement (mass/volume) 4.5 g/dL 3.2-4.5 Lipid 1996 panel - 02/02/18 07:11 Serum or plasma triglyceride measurement (mass/volume) 85 mg/dL <150 Serum or plasma cholesterol measurement (mass/volume) 151 mg/dL < 200 Serum or plasma cholesterol in HDL measurement (mass/volume) 46 mg/ dL 40-60 Cholesterol in LDL [mass/volume] in serum or plasma by direct assay 92 mg/dL 1-129 Serum or plasma cholesterol in VLDL measurement (mass/volume) 17 mg/ dL 5-40 Methicillin resistant Staphylococcus aureus (MRSA) screening culture - 07:11 Methicillin resistant Staphylococcus aureus (MRSA) screening culture NEG NRG Encounters ACCT No. Visit Date/Time Discharge Status Pt. Type Provider Facility Loc./Unit Complaint [id number] 02/12/2018 13:54:00 02/12/2018 23:59:59 CLS Outpatient Kaila SALCIDO MD [facility] PAF,NSVT [id number] 02/02/2018 06:51:00 02/02/2018 13:52:00 DIS Outpatient SETH ENRIQUEZ MD [facility] NSVT,PAF [id number] 01/28/2018 08:01:00 01/28/2018 23:59:59 CLS Outpatient Kaila SALCIDO MD [facility] I47.2 NSVT [id number] 01/21/2018 07:09:00 01/21/2018 23:59:59 CLS Outpatient SETH ENRIQUEZ MD [facility] CAROTID ARTERY STENOSIS [id number] 01/01/2018 12:07:00 01/01/2018 23:59:59 CLS Preadmit SETH ENRIQUEZ MD [facility] CAROTID ARTERY STENOSIS [id number] 11/27/2016 08:44:00 11/27/2016 23:59:59 CLS Outpatient SETH ENRIQUEZ MD [facility] HTN, [id number] 05/31/2015 08:03:00 05/31/2015 23:59:59 CLS Outpatient SETH ENRIQUEZ MD [facility] CARD CAROTID ARTERY STENOSIS HTN HLE PAF [id number] 11/15/2014 09:00:00 11/15/2014 23:59:59 CLS Outpatient DANA TRAVIS MD [facility] RAD FOLLOW UP PULM. NODULE [id number] 06/13/2014 13:34:00 06/13/2014 23:59:59 CLS Outpatient KEVYN PERSAUD [facility] CARD AFIB, CAROTID ARTERY STENOSIS,HTN,HLP [id number] 03/22/2014 09:06:00 03/22/2014 23:59:59 CLS Outpatient DANA TRAVIS MD [facility] RAD ABNORMAL CHEST XRAY [id number] 02/16/2014 00:32:00 02/16/2014 03:56:00 DIS Emergency ANEL PURDY, [place] Gannon [facility] ER VOMITING,FEVER, COUGHING,SORE THROAT [id number] 04/08/2013 07:58:00 04/08/2013 23:59:59 CLS Outpatient SETH ENRIQUEZ MD [facility] CARD AFIB [id number] 10/14/2018 09:30:00 PEN Preadmit SETH ENRIQUEZ MD [facility] AFIB
== END | disposition home or self-care (01) ==
LOC: CATH 08:49
PROVIDERS: ATTEND Internal Medicine Cardiovascular Disease
DX: I48.0 Paroxysmal atrial fibrillation (principal); I10 Essential (primary) hypertension; I47.2 Ventricular tachycardia; E78.2 Mixed hyperlipidemia; I65.23 Occlusion and stenosis of bilateral carotid arteries; E11.9 Type 2 diabetes mellitus without complications; Z79.01 Long term (current) use of anticoagulants; E78.1 Pure hyperglyceridemia; Z79.899 Other long term (current) drug therapy
CPT/HCPCS: 33282

== ENCOUNTER 2018-10-17 09:28 | Emergency (ER) | payer MEDICARE ==
[~2018-10-17] VITALS: Ht 190.5 cm; Wt 73.5 kg
[~2018-10-17 09:28] MED LIST changes: -LIDOCAINE 1% INJ 20 ML 20 ML VIAL ONE
--- OUTSIDE RECORDS SUMMARY | 2018-10-17 09:33 | XMS REPORT | Continuity of Care Document ---
Author Author [facility] Organization [facility] Address Unknown Phone Unavailable Allergies Active Description Code Type Severity Reaction Onset Reported/Identified Relationship to Patient Clinical Status Yes PCN PCN Mild N/A 03/25/2009 Yes Penicillins [id number] Drug Allergy Unknown N/A 05/31/2015 Yes amiodarone [id number] Drug Allergy Unknown N/A 02/02/2018 Yes diltiazem [id number] Drug Allergy Unknown N/A 02/02/2018 Yes sulfamethoxazole [id number] Drug Allergy Unknown N/A 02/02/2018 Yes trimethoprim [id number] Drug Allergy Unknown N/A 02/02/2018 Medications There [...] 06/23/2015 SETH ENRIQUEZ MD Ot 427.31 06/23/2015 MINA PURDY, SETH Draper Ot 433.10 06/29/2015 SETH ENRIQUEZ MD Ot [...] K Ot 397.0 TRICUSPID VALVE DISEASE 01/19/2018 ALIICA PERSAUDTH K Ot 401.9 HYPERTENSION NOS 01/19/2018 [...] MD Ot E78.1 PURE HYPERGLYCERIDEMIA 02/02/2018 SETH ENRQIUEZ MD Ot E78.5 HYPERLIPIDEMIA, UNSPECIFIED 02/02/2018 SETH ENRIQUEZ MD Ot I11.9 HYPERTENSIVE HEART DISEASE WITHOUT HEART 02/02/2018 SETH ENRIQUEZ MD Ot I25.10 ATHSCL HEART DISEASE OF [place] CORONARY 02/02/2018 SETH ENRIQUEZ MD Ot I47.2 VENTRICULAR TACHYCARDIA 02/02/2018 SETH ENRIQUEZ MD Ot I48.0 PAROXYSMAL ATRIAL FIBRILLATION 02/02/2018 SETH ENRIQUEZ MD Ot I65.29 OCCLUSION AND STENOSIS OF UNSPECIFIED CA 02/02/2018 SETH ENRIQUEZ MD Ot Z11.2 ENCOUNTER FOR SCREENING FOR OTHER BACTER 02/02/2018 SETH ENIRQUEZ MD Ot Z79.01 PRICING/SIGNAGE TEAM MEMBER (CURRENT) USE OF ANTICOAGULANT 02/02/2018 SETH ENRIQUEZ MD Ot Z79.82 GROUP HOME (CURRENT) USE OF ASPIRIN 02/02/2018 SETH ENRIQUEZ MD Ot Z79.899 OTHER PRICING/SIGNAGE TEAM MEMBER (CURRENT) DRUG THERAPY 02/02/2018 SETH ENRIQUEZ MD [...] MD Ot I25.10 ATHSCL HEART DISEASE OF [place] CORONARY 02/03/2018 SETH ENRIQUEZ MD Ot I47.2 VENTRICULAR TACHYCARDIA 02/03/2018 SETH ENRIQUEZ MD Ot I48.0 PAROXYSMAL ATRIAL FIBRILLATION 02/03/2018 SETH ENRIQUEZ MD Ot I65.29 OCCLUSION AND STENOSIS OF UNSPECIFIED CA 02/03/2018 SETH ENRIQUEZ MD Ot Z11.2 ENCOUNTER FOR SCREENING FOR OTHER BACTER 02/03/2018 SETH ENRIQUEZ MD Ot Z79.01 GROUP HOME (CURRENT) USE OF ANTICOAGULANT 02/03/2018 SETH ENRIQUEZ MD Ot Z79.82 PRICING/SIGNAGE TEAM MEMBER (CURRENT) USE OF ASPIRIN 02/03/2018 SETH ENRIQUEZ MD Ot Z79.899 OTHER GROUP HOME (CURRENT) DRUG THERAPY 02/03/2018 SETH ENRIQUEZ MD [...] MD Ot I25.10 ATHSCL HEART DISEASE OF [place] CORONARY 02/03/2018 SETH ENRIQUEZ MD Ot I47.2 VENTRICULAR TACHYCARDIA 02/03/2018 SETH ENRIQUEZ MD Ot I48.0 PAROXYSMAL ATRIAL FIBRILLATION 02/03/2018 SETH ENRIQUEZ MD Ot I65.29 OCCLUSION AND STENOSIS OF UNSPECIFIED CA 02/03/2018 SETH ENRIQUEZ MD Ot Z11.2 ENCOUNTER FOR SCREENING FOR OTHER BACTER 02/03/2018 SETH ENRIQUEZ MD Ot Z79.01 PRICING/SIGNAGE TEAM MEMBER (CURRENT) USE OF ANTICOAGULANT 02/03/2018 SETH ENRIQUEZ MD Ot Z79.82 PRICING/SIGNAGE TEAM MEMBER (CURRENT) USE OF ASPIRIN 02/03/2018 SETH ENRIQUEZ MD Ot Z79.899 OTHER PRICING/SIGNAGE TEAM MEMBER (CURRENT) DRUG THERAPY 02/03/2018 SETH ENRIQUEZ MD [...] MD Ot I25.10 ATHSCL HEART DISEASE OF [place] CORONARY 02/04/2018 SETH ENRIQUEZ MD Ot I47.2 VENTRICULAR TACHYCARDIA 02/04/2018 SETH ENRIQUEZ MD Ot I48.0 PAROXYSMAL ATRIAL FIBRILLATION 02/04/2018 SETH ENRIQUEZ MD Ot I65.29 OCCLUSION AND STENOSIS OF UNSPECIFIED CA 02/04/2018 SETH ENRIQUEZ MD Ot Z11.2 ENCOUNTER FOR SCREENING FOR OTHER BACTER 02/04/2018 SETH ENRIQUEZ MD Ot Z79.01 PRICING/SIGNAGE TEAM MEMBER (CURRENT) USE OF ANTICOAGULANT 02/04/2018 SETH ENRIQUEZ MD Ot Z79.82 PRICING/SIGNAGE TEAM MEMBER (CURRENT) USE OF ASPIRIN 02/04/2018 SETH ENRIQUEZ MD Ot Z79.899 OTHER PRICING/SIGNAGE TEAM MEMBER (CURRENT) DRUG THERAPY 02/04/2018 SETH ENRIQUEZ MD [...] MD Ot I25.10 ATHSCL HEART DISEASE OF [place] CORONARY 02/08/2018 SETH ENRIQUEZ MD Ot I47.2 VENTRICULAR TACHYCARDIA 02/08/2018 SETH ENRIQUEZ MD Ot I48.0 PAROXYSMAL ATRIAL FIBRILLATION 02/08/2018 SETH ENRIQUEZ MD Ot I65.29 OCCLUSION AND STENOSIS OF UNSPECIFIED CA 02/08/2018 SETH ENRIQUEZ MD Ot Z11.2 ENCOUNTER FOR SCREENING FOR OTHER BACTER 02/08/2018 SETH ENRIQUEZ MD Ot Z79.01 PRICING/SIGNAGE TEAM MEMBER (CURRENT) USE OF ANTICOAGULANT 02/08/2018 SETH ENRIQUEZ MD Ot Z79.82 GROUP HOME (CURRENT) USE OF ASPIRIN 02/08/2018 SETH ENRIQUEZ MD Ot Z79.899 OTHER GROUP HOME (CURRENT) DRUG THERAPY 02/08/2018 ESTH ENRIQUEZ MD Ot Z88.0 ALLERGY STATUS TO PENICILLIN 02/08/2018 SETH ENRIQUEZ MD Ot Z88.1 ALLERGY STATUS [...] ESSENTIAL (PRIMARY) HYPERTENSION 02/12/2018 MINA PURDY, BASANTONY J Ot I48.0 PAROXYSMAL ATRIAL FIBRILLATION 02/16/2018 LOLY PURDY, Kaila CORMIER Ot E78.5 HYPERLIPIDEMIA, UNSPECIFIED 02/16/2018 LOLY PURDY, Kaila CORMIER Ot I11.9 HYPERTENSIVE HEART DISEASE WITHOUT HEART 02/16/2018 LOLY PURDY, M GENIA Ot I47.2 VENTRICULAR TACHYCARDIA 02/16/2018 LOLY PURDY, Kaila CORMIER Ot I48.0 PAROXYSMAL ATRIAL FIBRILLATION 02/26/2018 LOLY PURDY, Kaila CORMIER Ot I47.2 VENTRICULAR TACHYCARDIA 02/26/2018 LOLY PURDY, M GENIA Ot I48.0 PAROXYSMAL ATRIAL FIBRILLATION 03/05/2018 LOLY PURDY, Kaila CORMIER Ot E78.5 HYPERLIPIDEMIA, UNSPECIFIED 03/05/2018 LOLY PURDY, M GENIA Ot I11.9 HYPERTENSIVE HEART DISEASE WITHOUT HEART 03/05/2018 LOLY PURDY, Kaila CORMIER Ot I47.2 VENTRICULAR TACHYCARDIA 03/05/2018 LOLY PURDY, Kaila CORMIER Ot I48.0 PAROXYSMAL ATRIAL FIBRILLATION 03/11/2018 LOLY PURDY, Kaila CORMIER Ot E78.5 HYPERLIPIDEMIA, UNSPECIFIED 03/11/2018 LOLY PURDY, Kaila CORMIER Ot I11.9 HYPERTENSIVE HEART DISEASE WITHOUT HEART 03/11/2018 LOLY PURDY, Kaila CORMIER Ot I47.2 VENTRICULAR TACHYCARDIA 03/11/2018 LOLY PURDY, Kaila CORMIER Ot I48.0 PAROXYSMAL ATRIAL FIBRILLATION 10/14/2018 DANA TRAVIS MD Ot 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 10/14/2018 DANA TRAVIS MD Ot 447.8 ARTERIAL DISEASE NEC 10/14/2018 DANA TRAVIS MD Ot 793.19 OTHER NONSPECIFIC ABNORMAL FINDING OF [place] 10/14/2018 KEVYN PERSAUD Ot 272.4 HYPERLIPIDEMIA NEC/NOS 10/14/2018 KEVYN PERSAUD Ot 397.0 TRICUSPID VALVE DISEASE 10/14/2018 KEVYN PERSAUD Ot 401.9 HYPERTENSION NOS 10/14/2018 KEVYN PERSAUD Ot 424.0 MITRAL VALVE DISORDER 10/14/2018 KEVYN PERSAUD Ot 427.31 ATRIAL FIBRILLATION 10/14/2018 KEVYN PERSAUD Ot 433.10 CAROTID ARTERY OCCLUSION W O CEREBRAL IN 10/14/2018 ANGY PURDY, DANA Faye Ot 793.11 SOLITARY PULMONARY NODULE 10/14/2018 SETH ENRIQUEZ MD Ot 272.4 HYPERLIPIDEMIA NEC/NOS 10/14/2018 SETH ENRIQUEZ MD Ot 401.9 HYPERTENSION NOS 10/14/2018 SETH ENRIQUEZ MD Ot 427.31 ATRIAL FIBRILLATION 10/14/2018 SETH ENRIQUEZ MD Ot 433.10 CAROTID ARTERY OCCLUSION W O CEREBRAL IN 10/14/2018 SETH ENRIQUEZ MD Ot E78.1 PURE HYPERGLYCERIDEMIA 10/14/2018 SETH ENRIQUEZ MD Ot E78.2 MIXED HYPERLIPIDEMIA 10/14/2018 SETH ENRIQUEZ MD Ot I10 ESSENTIAL (PRIMARY) HYPERTENSION 10/14/2018 SETH ENRIQUEZ MD Ot I48.0 PAROXYSMAL ATRIAL FIBRILLATION 10/14/2018 SETH ENRIQUEZ MD Ot E78.5 HYPERLIPIDEMIA, UNSPECIFIED 10/14/2018 SETH ENRIQUEZ MD Ot I10 ESSENTIAL (PRIMARY) HYPERTENSION 10/14/2018 SETH ENRIQUEZ MD Ot I48.0 PAROXYSMAL ATRIAL FIBRILLATION 10/14/2018 Kaila SALCIDO MD Ot I47.2 VENTRICULAR TACHYCARDIA 10/14/2018 Kaila SALCIDO MD Ot I48.0 PAROXYSMAL ATRIAL FIBRILLATION 10/14/2018 Kaila SALCIDO MD Ot E78.5 HYPERLIPIDEMIA, UNSPECIFIED 10/14/2018 Kaila SALCIDO MD Ot I11.9 HYPERTENSIVE HEART DISEASE WITHOUT HEART 10/14/2018 Kaila SALCIDO MD Ot I47.2 VENTRICULAR TACHYCARDIA 10/14/2018 Kaila SALCIDO MD Ot I48.0 PAROXYSMAL ATRIAL [...] Status Pt. Type Provider Facility Loc./Unit Complaint [id number] 10/14/2018 08:49:00 10/14/2018 23:59:59 CLS Outpatient SETH ENRIQUEZ MD [facility] AFIB [id number] 02/12/2018 13:54:00 02/12/2018 23:59:59 CLS Outpatient Kaila SALCIDO MD [facility] CARD PAF,NSVT [id number] 02/02/2018 06:51:00 02/02/2018 13:52:00 DIS Outpatient SETH ENRIQUEZ MD [facility] NSVT,PAF [id number] 01/28/2018 08:01:00 01/28/2018 23:59:59 CLS Outpatient Kaila SALCIDO MD [facility] CARD I47.2 NSVT [id number] 01/21/2018 07:09:00 01/21/2018 23:59:59 CLS Outpatient SETH ENRIQUEZ MD [facility] CARD CAROTID ARTERY STENOSIS [id number] 01/01/2018 12:07:00 01/01/2018 23:59:59 CLS Preadmit SETH ENRIQUEZ MD [facility] CARD CAROTID ARTERY STENOSIS [id number] 11/27/2016 08:44:00 11/27/2016 23:59:59 CLS Outpatient SETH ENRIQUEZ MD [facility] CARD HTN, [id number] 05/31/2015 08:03:00 05/31/2015 23:59:59 CLS Outpatient SETH ENRIQUEZ MD [facility] CARD CAROTID ARTERY STENOSIS HTN HLE PAF [id number] 11/15/2014 09:00:00 11/15/2014 23:59:59 CLS Outpatient DANA TRAVIS MD [facility] RAD FOLLOW UP PULM. NODULE [id number] 06/13/2014 13:34:00 06/13/2014 23:59:59 CLS Outpatient KEVYN PERSAUD [facility] CARD AFIB, CAROTID ARTERY STENOSIS,HTN,HLP [id number] 03/22/2014 09:06:00 03/22/2014 23:59:59 CLS Outpatient DANA TRAVIS MD [facility] RAD ABNORMAL CHEST XRAY [id number] 02/16/2014 00:32:00 02/16/2014 03:56:00 DIS Emergency NAEL PURDY, [place] [facility] ER VOMITING,FEVER, COUGHING,SORE THROAT [id number] 04/08/2013 07:58:00 04/08/2013 23:59:59 CLS Outpatient SETH ENRIQUEZ MD [facility] CARD AFIB
--- NOTE | 2018-10-17 09:59 | ED Integumentary General ---
General Chief Complaint: Skin/Wound Problems Stated Complaint: HEART MONITOR PATCH BLEEDING Nursing Triage Note: PT HAS LINK RECORDER PLACED ON FRIDAY AND UPON AWAKENING THIS AM NOTICED A 2CM SPOT OF BLOOD ON DRESSING. PT CONCERNED MAY BE PROBLEM. PT IS ON COUMADIN. NO SIGNS OF INFECTION NOTED. PT DENIES PAIN AT SITE Source: patient, family Exam Limitations: no limitations History of Present Illness Date Seen by Provider: Oct 17, 2018 Time Seen by Provider: 09:57 Initial Comments The patient is a 72-year-old white male known to me for many years. He had a blank recorder implanted on Friday of this week. This morning when he awoke there was a spot of blood on his dressing. He became concerned about this. He does take Coumadin. There was no blood which soiled the bed clothes Timing/Duration: this morning Location: torso Allergies and Home Medications Allergies Coded Allergies: Penicillins (Unverified Allergy, Unknown, 05/31/15) amiodarone (Verified Allergy, Unknown, 02/02/18) diltiazem (Verified Allergy, Unknown, 02/02/18) sulfamethoxazole (Verified Allergy, Unknown, 02/02/18) trimethoprim (Verified Allergy, Unknown, 02/02/18) Home Medications Aspirin 81 Mg Tablet.dr, 81 MG PO DAILY, (Reported) Losartan Potassium 100 Mg Tablet, 100 MG PO DAILY, (Reported) Metoprolol Tartrate 50 Mg Tablet, 50 MG PO BID, (Reported) [place]-3S/Dha/Epa/Fish Oil/D3 1 Each Capsule, 3 EACH PO DAILY, (Reported) Warfarin Sodium 5 Mg Tablet, 5 MG PO MONWEDFRISAT, (Reported) Warfarin Sodium 5 Mg Tablet, 2.5 MG PO TUESTHURSSUN, (Reported) Patient Home Medication List Home Medication List Reviewed: Yes Review of Systems Review of Systems Constitutional: see HPI EENTM: no symptoms reported Respiratory: no symptoms reported Cardiovascular: no symptoms reported Gastrointestinal: no symptoms reported Past Pannvpb-Hlumkg-Tksvcd Hx Patient Social History Alcohol Use: Denies Use Recreational Drug Use: No Smoking Status: Never a Smoker Recent Foreign Travel: No Contact w/Someone Who Travel: No Recent Infectious Disease Expo: No Recent Hopitalizations: No Immunizations Up To Date Date of Pneumonia Vaccine: Sep 04, 2015 Date of Influenza Vaccine: Sep 04, 2017 Past Medical History Surgeries: Yes (AMPLANTSER) Respiratory: No Cardiac: Yes (PAD, NSTMI, LINK RECORDER) Neurological: No Reproductive Disorders: No Gastrointestinal: No Musculoskeletal: No Endocrine: No Cancer: No Psychosocial: No Integumentary: No Blood Disorders: No Adverse Reaction/Blood Tranf: No Physical Exam Vital Signs Vital Signs - First Documented 10/17/18 09:30 Temp 96.7 Pulse 54 Resp 18 B/P (MAP) 138/85 (102) Pulse Ox 98 Capillary Refill : Less Than 3 Seconds General Appearance: WD/WN HEENT: normal ENT inspection Neck: full range of motion Cardiovascular: normal peripheral pulses, regular rate, rhythm, no edema, no gallop, no JVD, no murmur Respiratory: chest non-tender, lungs clear, normal breath sounds, no respiratory distress, no accessory muscle use Comments There is a vertically oriented 2 cm incision leaking dark blood at the inner upper pole of the left breast. There is a palpable device oriented horizontally. The portion of the breast below the nipple shows ecchymosis. In general the left breast is for than the right and shows some yellow-green discoloration in the skin between the nipple and the incision. Progress/Results/Core Measures Results/Orders Vital Signs/I&O 10/17/18 09:30 Temp 96.7 Pulse 54 Resp 18 B/P (MAP) 138/85 (102) Pulse Ox 98 Blood Pressure Mean: 102 Departure Impression Primary Impression: post device implantation ecchymosis and hematoma Disposition: 01 HOME, SELF-CARE Condition: Against Medical Advice Departure-Patient Inst. Decision time for Depature: 10:03 Referrals: DANA TRAVIS MD (PCP/Family) Primary Care Physician Add. Discharge Instructions: All discharge instructions reviewed with patient and/or family. Voiced understanding. Do not be surprised if there is additional oozing of blood. If this soaks through the dressing additional gauze may be applied. Sleeping on your left side may minimize this ooze. POLI BO MD Oct 17, 2018 09:59
[2018-10-17 10:13] VITALS: BP 101/57
== END 2018-10-17 10:13 | disposition home or self-care (01) ==
LOC: EDUNIT# 09:28 → ER 09:29
DX: I97.621 Postprocedural hematoma of a circulatory system organ or structure following other procedure (principal); Z88.0 Allergy status to penicillin; Z88.2 Allergy status to sulfonamides; Z88.8 Allergy status to other drugs, medicaments and biological substances; Z79.82 Long term (current) use of aspirin; Z79.01 Long term (current) use of anticoagulants; Z95.818 Presence of other cardiac implants and grafts
CPT/HCPCS: 99282

== ENCOUNTER → 2019-12-06 | Outpatient (CLI) | payer MEDICARE ==
[~2019-12-06] MED LIST changes: +LOSA100T57 PO; -LOSA100T8 PO
== END ==
LOC: CARD 09:11
PROVIDERS: ATTEND Physician Assistant
DX: I34.0 Nonrheumatic mitral (valve) insufficiency (principal); I11.9 Hypertensive heart disease without heart failure; E78.2 Mixed hyperlipidemia; I48.0 Paroxysmal atrial fibrillation; I47.2 Ventricular tachycardia; I48.19 Other persistent atrial fibrillation
CPT/HCPCS: 93306

== ENCOUNTER 2020-03-22 11:10 | Inpatient (IN) | payer MEDICARE ==
[~2020-03-22] VITALS: Ht 193 cm; Wt 72.3 kg
--- NOTE | 2020-03-22 11:45 | NUR ---
ORIN BRANNON admitted to room 411-1, with an admitting diagnosis of HYPERCALCEMIA, on 03/22/20 from DIRECT ADMIT via AMBULATORY/WHEELCHAIR, accompanied by FEDERAL JUDGE. ORIN BRANNON introduced to surroundings, call light, bed controls, phone, TV, temperature control, lights, meal times, smoking policy, visitor policy, side rail policy, bathrooms and showers. Patient Rights given to patient in the handbook. ORIN BRANNON verbalizes understanding that [facility] is not responsible for the loss or damage to any personal effects or valuables that are kept in the patients possession during their hospitalization. The following Patient Care Plans were discussed with the PATIENT: Discharge Planning, HYPERCALCEMIA, and KNOWLEDGE DEFICIT. ORIN BRANNON verbalizes understanding of Interdisciplinary Patient Education. Patient and/or family were informed about the Rapid Response Team and its purpose.
[2020-03-22 12:00] VITALS: BP 168/89
[2020-03-22] MEDS ORDERED: CATHETER FLUSH 10 ML SYR IV PRN (12:15)
[2020-03-22 12:32] VITALS: BP 168/89
--- OUTSIDE RECORDS SUMMARY | 2020-03-22 12:45 | XMS REPORT ---
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 Name Role Phone JESSICA BROWN Unavailable Unavailable KEVYN PERSAUD Unavailable Unavailab wild TAM MD, EDIN Gannon Unavailable Unavailable DANA TRAVIS MD Unavailable Unavailable MINA PURDY, SETH Draper Unavailable Unavailable DANA TRAVIS Unavailable MINA PURDY, SETH Draper Unavailable Unavailable ANUPAM PURDY, POLI Sanchez Unavailable Unavailable ANEL PURDY, EDIN Gannon Unavailable Unavailable DANA TRAVIS MD Unavailable Unavailable KEVYN PERSAUD Unavailable Unavailab Kaila Preston MD Unavailable Unavailable LOLY PURDY, ARNAV CORMIER Unavailable Unavailable Unavailable Unavailable Unavailable Unavailable Allergies Normalized Allergy Reported Date of Reaction(s) Care Provider Facility Allergy Type classification allergen Allergy Onset Drug Allergy Amiodarone amiodarone 02-02-2018 - amiodarone MERED ITH Not Available (20 sources.) Translations: ([id number]) SMITH (000 00) Translations: [ amiodarone [place] , [place] [ Allergy to ([id number])] Substance] Drug Allergy Calcium dilTIAZem 02-02-2018 - diltiazem KEVYN Not Available (20 sources.) Channel Translations: ([id number]) SHAHIDA GUILLEN (98446) Translations: Blockers [ diltiazem N , [place] [ Allergy to ([id number])] Substance] Drug Allergy Penicillins Penicillins 05-31-2015 - Penicillins SHERYL PINEDO MD Not Available (24 sources.) (antibiotic) Translations: ([id number]) (44919 ) Translations: [ Penicillins [ Allergy to ([id number])] Substance] NEGATED no information sulfamethoxazo 02-02-2018 - no informatio n no name Not Available Drug Allergy le (15087) (13 sources.) Drug Allergy Sulfonamides Sulfamethoxazo 02-02-2018 - sulfametho xazo DANA TRAVIS , Not Available (22 sources.) (antibiotic) daniel PURDY (99100 ) Translations: Translations: ([id number]) [ Allergy to [ Substance] sulfamethoxazo wild ([id number])] Drug Allergy Dihydrofolate trimethoprim 02-02-2018 - Trimethopri m KEVYN Not Available (20 sources.) Reductase Translations: SMITH (0000 0) Translations: Inhibitors [ N , [place] [ Allergy to (antibiotic) Trimethoprim] Substance] Medications Medication Ingredient Drug Dose Dates Status Sig Sig Care Class(es) (Normalized) (Original) Provid er aspirin 81 Aspirin Platelet 81 mg Complete take 1 Aspirin (no mg delayed Aggregation d tablet by (Aspir 81) phone) release Inhibitor, mouth once 81 Mg oral tablet Nonsteroida daily, then Tablet.dr Rae (1 source.) l take 81 Mg ORAL Anti-inflam tablets by Daily matory Drug mouth no Atenolol no 50 mg 02-03-20 Complete no Atenolol (no information (Tenormin information 18 d information (Ten ormin 50 phone) (1 source.) 50 Mg) 50 Mg) 50 Mg Mg Tablet, Tablet, Not Not Applicable Applicable Discontinued no Azithromyci Macrolide 02-17-20 Complete take 250 Azithrom ycin Edin information n Antimicrobi 14 - d tablets by (Zithrom ax) T (1 source.) al 02-03-20 mouth once 250 Mg Bruegg 18 daily Tablet, 1 emann Tab Oral (no Daily phone) 02/16/14 Discontinued no Cefuroxime no 03-25-20 Complete take 500 Cefuroxime G ordon information Axetil 500 information 09 - d tablets by Axet il 500 L [place] (1 source.) Mg Tablet, 02-03-20 mouth twice Mg Tablet, 1 (no 1 Each Oral 18 daily Each Oral phone) Twice A Day 03/25/09 Discontinued no Lisinopril no 20 mg 02-03-20 Complete no Lisinop ril (no information (Zestril) information 18 d information (Zes tril) 20 phone) (1 source.) 20 Mg Mg Tablet, Tablet, Not Not Applicable Applicable Discontinued losartan Losartan Angiotensin 100 mg Complete take 1 Losartan ( no potassium 2 Receptor d tablet by Potassium phone) 100 mg oral Jhony mouth once 100 Mg tablet (1 daily Tablet 100 source.) Mg ORAL Daily metFORMIN metFORMIN Biguanide 500 mg 02-03-20 Complete take 500 Metformin (no hydrochlori 18 d tablets by Hcl 500 Mg phone) de 500 mg mouth once Tablet, 1000 oral tablet daily Mg Oral (1 source.) Daily Discontinued metoprolol Metoprolol beta-Adrene 50 mg Complete take 1 Metoprol ol (no tartrate 50 rgic d tablet by Tartrate 50 phone) mg oral Jhony mouth twice Mg Tablet 50 tablet (1 daily Mg ORAL source.) Twice A Day no [place]-3S/Dh no Complete take 3 [place]-3S/Dha (n o information a/Epa/Fish information d capsules by /Epa/F joel phone) (1 source.) Oil/D3 mouth once Oil/D3 (Fish (Fish daily, then [id number]- Oil-[place]-3 take 3 Vit D -Vit D capsules by Softgel) 1 Softgel) 1 mouth once, Each Capsule Each then take 1 3 Each ORAL Capsule capsule by Daily mouth warfarin Warfarin Vitamin K 5 mg Complete no Warfarin (no sodium 5 mg Translation Antagonist d information Sodium phone) oral tablet s: [ (Coumadin) 5 (2 Warfarin Mg Tablet 5 sources.) Sodium 5 MG Mg ORAL Oral Monwedfrisat Tablet] 12.5 mg Completed no Warfarin (no inform Sodium 5 phone) ation Mg Tablet 2.5 Mg ORAL Tuesthur ssun Problems Active Problems Problem Normalized Date Last Normalized Normalized Provider Fa cility Classification Problem(s) Recorded Problem Problem Sta tus Duration Allergic Allergy status Episodic Active EDIN Not Radha ilable reactions (24 to penicillin ANEL , (64897) sources.) Translations: [ ALLERGY STATUS TO OTHER ANTIBIOTIC AGENT, ALLERGY STATUS TO OTH DRUG/MEDS/BIOL SUB, DIARRHEA, ALLERGY STATUS TO SULFONAMIDES STATUS, ALLERGY STATUS TO SULFONAMIDES STATUS, ALLERGY STATUS TO OTH DRUG/MEDS/BIOL SUB, ALLERGY STATUS TO OTHER ANTIBIOTIC AGENT] Coronary Atheroscleroti Chronic Active SETH ENRIQUEZ , [facility] Via atherosclerosi c heart MD Chloe live and other disease of Hospital - heart disease [facility] (10 sources.) coronary (68992) artery without angina pectoris Cardiac Cardiac no information Active DANA ledezma Via dysrhythmias dysrhythmias [address] [facility] (1 source.) Hospital (42124) Immunizations Encounter for Episodic Active BASANTONY ANDERSENJI , [facility] Via and screening screening for [place] for infectious other Hospital - disease (10 bacterial [place] sources.) diseases (73267) Essential Essential Chronic Active KEVYN Not Availabl e hypertension (primary) [facility] (22 sources.) hypertension N , [place] Translations: [ HYPERTENSION NOS] Hypertension Hypertensive Chronic Active BASANTONY ENRIQUEZ , [facility] Via with heart disease [facility] [place] complications without heart Hospital - and secondary failure [place] hypertension (38377) (21 sources.) Other long-term Episodic Active BASHAR MINA , [facility] Via aftercare (20 (current) use [facility] [place] sources.) of Hospital - anticoagulants [place] (23380) Other long-term Episodic Active BASHAR MINA , [facility] Via aftercare (15 (current) use [facility] [place] sources.) of aspirin [facility] (61515) Heart valve Mitral valve Chronic Active KEVYN [facility] Via disorders (12 disorders [facility] sources.) Translations: N SURINDER Hospital - [ TRICUSPID [place] VALVE DISEASE, (23301) TRICUSPID VALVE DISEASE, 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 KEVYN [facility] V ia stenosis of stenosis of [facility] precerebral unspecified N [place] Hospital - arteries (20 carotid artery [place] sources.) Translations: (63569) [ CAROTID ARTERY OCCLUSION W O CEREBRAL IN, OCCLUSION AND STENOSIS OF BILATERAL NOVA] Other and Other Chronic Active DANA TRAVIS , [facility] Via ill-defined ill-defined [facility] [place] heart disease heart diseases Hospital - (5 sources.) [place] (62636) Other Other long Episodic Active BASHAR MINA , [facility] Vi a aftercare (15 term (current) [facility] [place] sources.) drug therapy [facility] (65706) Other Other Chronic Active DANA TRAVIS [facility] Via circulatory specified [facility] [place] disease (5 disorders of Hospital - sources.) arteries and [place] arterioles (05978) Complications Postprocedural Episodic Active POLI BO [facility] Via of surgical hematoma of a , MD Chloe procedures or circulatory [facility] - medical care system organ [place] (2 sources.) or structure (89529) following other procedure Other Presence of Chronic Active POLI BO [facility] Vi a circulatory other cardiac , [facility] [place] disease (5 implants and Hospital - sources.) grafts [place] (25509) Disorders of Pure Chronic Active KEVYN Not Availa ble lipid hyperglyceride ANAYA-ANDERSO (31806) metabolism (21 hernandez N , [place] sources.) Translations: [ HYPERLIPIDEMIA , UNSPECIFIED, HYPERLIPIDEMIA NEC/NOS, MIXED HYPERLIPIDEMIA , PURE HYPERGLYCERIDE HERNANDEZ, PURE HYPERGLYCERIDE HERNANDEZ, HYPERLIPIDEMIA , UNSPECIFIED] Other lower Solitary Episodic Active DANA TRAVIS , [facility] Vi a respiratory pulmonary [facility] [place] disease (5 nodule Hospital - sources.) [place] (62276) Diabetes Type 2 Chronic Active SETH ENRIQUEZ , [facility] Via mellitus diabetes [facility] [place] without mellitus Hospital - complication without [place] (15 sources.) complications (13183) Cardiac Ventricular Chronic Active MD LOLY Not Avai lable dysrhythmias tachycardia (03118) (24 sources.) Translations: [ PAROXYSMAL ATRIAL FIBRILLATION, VENTRICULAR TACHYCARDIA, ATRIAL FIBRILLATION, PAROXYSMAL ATRIAL FIBRILLATION, VENTRICULAR TACHYCARDIA] Unclassified no information no information Active DANA LAI [place] Via (1 source.) [address] [facility] (71641) Past or Other Problems Problem Normalized Date Last Normalized Normalized Provider Fa cility Classification Problem(s) Recorded Problem Problem Sta tus Duration Other upper Acute Episodic Completed EDIN [facility] Via respiratory pharyngitis Chloe TAM infections (4 MD Hospital - sources.) [place] (43064) Other Diarrhea Episodic Completed EDIN [facility] Via gastrointestin Chloe TAM al disorders [facility] - (1 source.) [place] (98147) Fever of Fever, Episodic Completed EDIN [facility] Via unknown origin unspecified Chloe TAM (4 sources.) [facility] (24139) Nausea and Nausea with Episodic Completed EDIN [facility] Via vomiting (4 vomiting Chloe TAM sources.) [facility] (87756) Other lower Other Episodic Completed DANA TRAVIS , [facility] Vi a respiratory nonspecific [facility] [place] disease (5 abnormal Hospital - sources.) finding of [place] lung field (12610) Unclassified OTHER no information no information KEVYN [facility] Via (5 sources.) PERSISTENT ANAYA-ANDERSO Chloe ATRIAL N , [place] Hospital - FIBRILLATION [place] (56147) Pneumonia Pneumonia, Episodic Completed EDIN [facility] Via (except that organism Chloe TAM caused by unspecified [facility] - tuberculosis [place] or sexually (65304) transmitted disease) (4 sources.) Complications Postprocedural no information no information XIMENA BO Not Available of surgical hematoma of MD angélica (23787) procedures or circulatory medical care system organ (7 sources.) or structure following other procedure Procedures The data below is from unstructured sources Procedure Coding System Code Date SINGLE IMMUNIZATION ADMIN CPT-4 24238 February 22, 2016 PCV 13 CPT-4 37492 February 22, 2016 No procedure information available. Immunizations Normalized Immunization Date Notes Care Provider Facili ty Immunization vaccine no information DANA TRAVIS [address] [place] V ia Translations: [ [facility] vaccine] (61531) Results The data below is from unstructured sourcesNo Known Results No relevant diagnostic test, laboratory data and/or discharge summary information available.No relevant diagnostic test, laboratory data and/or discharge summary information available. Vital Signs The data below is from unstructured sources Vital Response Date/Time Temperature (Fahrenheit) 96.1 degree s F (97.6 - 99.5) 10/17/2018 10:13am Temperature (Calculated Celsius) 35. 44550 degrees C (36.4 - 37.5) 10/17/2018 10:13am Temperature Source Tympanic 10/17/2018 10:13am Pulse Rate (adult) 52 bpm (60 - 90) 10/17/2018 10:13am Respiratory Rate 18 bpm (12 - 24) 10/17/2018 10:13am O2 Sat by Pulse Oximetry 100 % (88 - 100) 10/17/2018 10:13am Blood Pressure 101/57 mm Hg 10/17/2018 10:13am Blood Pressure Mean 72 mm Hg (65 - 110) 10/17/2018 10:13am Pain Numeric Pain Scale 0-No Pain 10/17/2018 10:13am Height (Feet) 6 feet 06/2018 9:30am Height (Inches) 3.00 inches 10/17/2018 9:30am Height (Calculated Centimeters) 190. 859667 cm 10/17/2018 9:30am Weight (Pounds) 162 pounds 10/17/2018 9:30am Weight (Ounces) 0.0 oz 1 12/15/2017 9:14am Weight (Calculated Grams) 90331.97 gm 10/17/2018 9:30am Weight (Calculated Kilograms) 73.481 965 kilograms 10/17/2018 9:30am Calculated BMI 24.8 03/2018 9:14am Weight Method Stated 06/2018 9:30am Capillary Refill Capillary Refill Less Than 3 Seconds 10/17/2018 9:30am Interventions No Information Plan of Treatment The data below is from unstructured sources Discharge Date 10/17/18 10:13am Disposition 01 HOME, SELF-CARE Condition at Discharge Against Medic al Advice Prescriptions See Medication Section Referrals DANA TRAVIS MD Order Date: Primary Care Physician Address: [address] [place] [address], [address] [place] [address] [id number] Additional Instructions/Education Al l discharge instructions reviewed with patient and/or family. Voiced understanding. Do not be surprised if there is additional oozing of blood. If this soaks through the dressing additional gauze may be applied. Sleeping on your left side may minimize this ooze. Goals No Information Social History Normalized Code Original Code Date Value no information no information no information Never smoked to bacco (finding) Functional Status The data below is from unstructured sourcesNo functional status information available. Mental Status No Information Encounters Encounter Normalized Encounter Encounter Diagnosis Care Provi frederic Organization Date Type 10-14-2018 Admission to day no information SETH ENRIQEUZ Work no organization name surgery 10-17-2018 Emergency department no information POLI BO Work no organization name - patient visit Phone: 10-17-2018 10-17-2018 Emergency department no information no name no organization name - patient visit 10-17-2018 02-16-2014 Emergency department no information no name no organization name - patient visit 02-16-2014 02-15-2014 Emergency department no information no name no organization name - patient visit 02-15-2014 02-12-2018 Patient encounter no information no name no or ganization name NEGATED Patient encounter no information no name no or ganization name [id number] 01-28-2018 Patient encounter no information no name no or ganization name 01-21-2018 Patient encounter no information no name no or ganization name 11-27-2016 Patient encounter no information no name no or ganization name 05-31-2015 Patient encounter no information no name no or ganization name 11-15-2014 Patient encounter no information no name no or ganization name 06-13-2014 Patient encounter no information no name no or ganization name 03-22-2014 Patient encounter no information no name no or ganization name 04-08-2013 Patient encounter no information no name no or ganization name 12-06-2019 Patient encounter no information KEVYN K [facility] V ia [place] procedure ANAYA-ANMOL CADENA (no [facility] phone) (no phone) 10-17-2018 Patient encounter no information no name no or ganization name procedure 10-14-2018 Patient encounter no information no name no or ganization name procedure 10-14-2018 Patient encounter no information no name no or ganization name procedure 02-12-2018 Patient encounter no information no name no or ganization name procedure 02-02-2018 Patient encounter no information no name no or ganization name - procedure 02-02-2018 01-21-2018 Patient encounter no information no name no or ganization name procedure 11-27-2016 Patient encounter no information no name no or ganization name procedure 05-31-2015 Patient encounter no information no name no or ganization name procedure 06-13-2014 Patient encounter no information no name no or ganization name procedure 03-22-2014 Patient encounter no information no name no or ganization name procedure Medical Equipment No Information Payers Normalized Payer Value [facility] [id number]) Medicare [id number] ([id number]) Summary Purpose eClinicalWorks Submission Advance Directives Directive Response Recor ded Date/Time Advance Directives No 9:30am Organ Donor No 10/17/18 9:30am Resuscitation Status Full Code 10/17/18 9:30am Chief Complaint and Reason for Visit Chief Complaint Skin/Wound Problems Reason for Visit post device implant ation ecchymosis and hematoma Discharge Instructions No hospital discharge instruction information available. Additional Source Comments This clinical document has been generated using Sol[employer] software that has been certified by the Office of the National Coordinator for Health Information Technology (ONC 15.99.04.3023.Diam.31.00.0.485204) and the National Committee for Production Operations Inspector (NCQA, as an eMeasure certified technology). FOR RECORDS PERTAINING TO PATIENTS WHO ARE OR HAVE BEEN ENROLLED IN A CHEMICAL D EPENDENCY/SUBSTANCE ABUSE PROGRAM, SOME INFORMATION MAY BE OMITTED. This clinica l summary was aggregated from multiple sources. Caution should be exercised in using it in the provision of clinical care. This summary normalizes information from multiple sources, and as a consequence, information in this document may ma terially change the coding, format and clinical context of patient data. In orel tion, data may be omitted in some cases. CLINICAL DECISIONS SHOULD BE BASED ON T HE PRIMARY CLINICAL RECORDS. [employer] provides no warranty or guara ntee of the accuracy or completeness of information in this document.The followi ng information is based on time limited clinical information
--- OUTSIDE RECORDS SUMMARY | 2020-03-22 12:46 | XMS REPORT | Continuity of Care Document ---
Author Organization Unknown Address Unknown Phone Unavailable Allergies Active Description Code Type Severity Reaction Onset Reported/Identified Relationship to Patient Clinical Status Yes PCN PCN Mild N/A 03/25/2009 Yes Penicillins [id number] Drug Aller gy Unknown N/A 05/31/2015 Yes amiodarone [id number] Drug Allerg y Unknown N/A 02/02/2018 Yes diltiazem [id number] Drug Allergy Unknown N/A 02/02/2018 Yes sulfamethoxazole [id number] Drug Allergy Unknown N/A 02/02/2018 Yes trimethoprim [id number] Drug Allergy Unknown N/A 02/02/2018 Medications There is no data. Problems Date Dx Coded Attending Type Code Diagnosis Diagnosed By 02/16/2014 ANEL PURDY, [place] Gannon Ot 462 ACUTE PHARYNGITIS 02/16/2014 ANEL PURDY, [place] Gannon Ot 486 PNEUMONIA, ORGANISM NOS 02/16/2014 ANEL PURDY, [place] Gannon Ot 780.60 FEVER, UNSPECIFIED 02/16/2014 ANEL PURDY, [place] Gannon Ot 787.01 NAUSEA WITH VOMITING 02/16/2014 [place] TAM MD Ot 787.91 DIARRHEA 12/10/2014 ANGY PURDY, DANA Faye Ot 793. 11 12/19/2014 DANA TRAVIS MD Ot 793. 11 06/23/2015 SETH ENRIQUEZ MD Ot 272. 4 06/23/2015 SETH ENRIQUEZ MD Ot 401. 9 06/23/2015 SETH ENRIQUEZ MD Ot 427. 31 06/23/2015 SETH ENRIQUEZ MD Ot 433. 10 06/29/2015 SETH ENRIQUEZ MD Ot 272. 4 06/29/2015 SETH ENRIQUEZ MD Ot 401. 9 06/29/2015 SETH ENRIQUEZ MD Ot 427. 31 06/29/2015 SETH ENRIQUEZ MD Ot 433. 10 11/27/2016 SETH ENRIQUZE MD Ot 427. 31 ATRIAL FIBRILLATION 11/27/2016 DANA TRAVIS MD Ot 429. 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 11/27/2016 DANA TRAVIS MD Ot 447. 8 ARTERIAL DISEASE NEC 11/27/2016 DANA TRAVIS MD Ot 793. 19 OTHER NONSPECIFIC ABNORMAL FINDING OF [place] 11/27/2016 MICHAEL CADENA KEVYN K Ot 272.4 HYPERLIPIDEMIA NEC/NOS 11/27/2016 MICHAEL CADENA KEVYN K Ot 397.0 TRICUSPID VALVE DISEASE 11/27/2016 MICHAEL CADENA KEVYN K Ot 401.9 HYPERTENSION NOS 11/27/2016 MICHAEL CADENA KEVYN K Ot 424.0 MITRAL VALVE DISORDER 11/27/2016 MICHAEL CADENA KEVYN K Ot 427.31 ATRIAL FIBRILLATION 11/27/2016 MICHAEL CADENA KEVYN K Ot 433.10 CAROTID ARTERY OCCLUSION W O CEREBRAL IN 11/27/2016 DANA TRAVIS MD Ot 793. 11 SOLITARY PULMONARY NODULE 11/27/2016 SETH ENRIQUEZ MD Ot 272. 4 HYPERLIPIDEMIA NEC/NOS 11/27/2016 SETH ENRIQUEZ MD Ot 401. 9 HYPERTENSION NOS 11/27/2016 SETH ENRIQUEZ MD Ot 427. 31 ATRIAL FIBRILLATION 11/27/2016 SETH ENRIQUEZ MD Ot 433. 10 CAROTID ARTERY OCCLUSION W O CEREBRAL IN 11/28/2016 SETH ENRIQUEZ MD Ot E78. 1 PURE HYPERGLYCERIDEMIA 11/28/2016 SETH ENRIQUEZ MD Ot E78. 2 MIXED HYPERLIPIDEMIA 11/28/2016 SETH ENRIQUEZ MD Ot I10 ESSENTIAL (PRIMARY) HYPERTENSION 11/28/2016 SETH ENRIQUEZ MD Ot I48. 0 PAROXYSMAL ATRIAL FIBRILLATION 11/29/2016 SETH ENRIQUEZ MD Ot E78. 1 PURE HYPERGLYCERIDEMIA 11/29/2016 SETH ENRIQUEZ MD Ot E78. 2 MIXED HYPERLIPIDEMIA 11/29/2016 SETH ENRIQUEZ MD Ot I10 ESSENTIAL (PRIMARY) HYPERTENSION 11/29/2016 SETH ENRIQUEZ MD Ot I48. 0 PAROXYSMAL ATRIAL FIBRILLATION 12/20/2016 SETH ENRIQUEZ MD Ot E78. 1 PURE HYPERGLYCERIDEMIA 12/20/2016 SETH ENRIQUEZ MD Ot E78. 2 MIXED HYPERLIPIDEMIA 12/20/2016 SETH ENRIQUEZ MD Ot I10 ESSENTIAL (PRIMARY) HYPERTENSION 12/20/2016 SETH ENRIQUEZ MD Ot I48. 0 PAROXYSMAL ATRIAL FIBRILLATION 12/25/2016 SETH ENRIQUEZ MD Ot E78. 1 PURE HYPERGLYCERIDEMIA 12/25/2016 SETH ENRIQUEZ MD Ot E78. 2 MIXED HYPERLIPIDEMIA 12/25/2016 SETH ENRIQUEZ MD Ot I10 ESSENTIAL (PRIMARY) HYPERTENSION 12/25/2016 SETH ENRIQUEZ MD Ot I48. 0 PAROXYSMAL ATRIAL FIBRILLATION 01/19/2018 SETH ENRIQUEZ MD Ot 427. 31 ATRIAL FIBRILLATION 01/19/2018 ANGY PURDY, DANA Faye Ot 429. 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 01/19/2018 DANA TRAVIS MD Ot 447. 8 ARTERIAL DISEASE NEC 01/19/2018 DANA TRAVIS MD Ot 793. 19 OTHER NONSPECIFIC ABNORMAL FINDING OF [place] 01/19/2018 KEVYN PERSAUD K Ot 272.4 HYPERLIPIDEMIA NEC/NOS 01/19/2018 ALICIA PERSAUDTH K Ot 397.0 TRICUSPID VALVE DISEASE 01/19/2018 ALICIA PERSAUDTH K Ot 401.9 HYPERTENSION NOS 01/19/2018 ALICIA PERSAUDTH K Ot 424.0 MITRAL VALVE DISORDER 01/19/2018 ALICIA PERSAUDTH K Ot 427.31 ATRIAL FIBRILLATION 01/19/2018 ALICIA PERSAUDTH K Ot 433.10 CAROTID ARTERY OCCLUSION W O CEREBRAL IN 01/19/2018 ANGY PURDY, DANA Faye Ot 793. 11 SOLITARY PULMONARY NODULE 01/19/2018 SETH ENRIQUEZ MD Ot 272. 4 HYPERLIPIDEMIA NEC/NOS 01/19/2018 SETH ENRIQUEZ MD Ot 401. 9 HYPERTENSION NOS 01/19/2018 SETH ENRIQUEZ MD Ot 427. 31 ATRIAL FIBRILLATION 01/19/2018 SETH ENRIQUEZ MD Ot 433. 10 CAROTID ARTERY OCCLUSION W O CEREBRAL IN 01/19/2018 SETH ENRIQUEZ MD Ot E78. 1 PURE HYPERGLYCERIDEMIA 01/19/2018 SETH ENRIQUEZ MD Ot E78. 2 MIXED HYPERLIPIDEMIA 01/19/2018 SETH ENRIQUEZ MD Ot I10 ESSENTIAL (PRIMARY) HYPERTENSION 01/19/2018 SETH ENRIQUEZ MD Ot I48. 0 PAROXYSMAL ATRIAL FIBRILLATION 01/22/2018 SETH ENRIQUEZ MD Ot E78. 5 HYPERLIPIDEMIA, UNSPECIFIED 01/22/2018 SETH ENRIQUEZ MD Ot I10 ESSENTIAL (PRIMARY) HYPERTENSION 01/22/2018 SETH ENRIQUEZ MD Ot I48. 0 PAROXYSMAL ATRIAL FIBRILLATION 01/27/2018 LOLY PURDY, Kaila CORMIER Ot I47 .2 VENTRICULAR TACHYCARDIA 01/29/2018 LOLY PURDY, Kaila CORMIER Ot I47 .2 VENTRICULAR TACHYCARDIA 01/29/2018 LOLY PURDY, M GENIA Ot I48 .0 PAROXYSMAL ATRIAL FIBRILLATION 02/02/2018 SETH ENRIQUEZ MD Ot E11. 9 TYPE 2 DIABETES MELLITUS WITHOUT COMPLIC 02/02/2018 SETH ENRIQUEZ MD Ot E78. 1 PURE HYPERGLYCERIDEMIA 02/02/2018 SETH ENRIQUEZ MD Ot E78. 5 HYPERLIPIDEMIA, UNSPECIFIED 02/02/2018 SETH ENRIQUEZ MD Ot I11. 9 HYPERTENSIVE HEART DISEASE WITHOUT HEART 02/02/2018 SETH ENRIQUEZ MD Ot I25. 10 ATHSCL HEART DISEASE OF [place] CORONARY 02/02/2018 SETH ENRIQUEZ MD Ot I47. 2 VENTRICULAR TACHYCARDIA 02/02/2018 SETH ENRIQUEZ MD Ot I48. 0 PAROXYSMAL ATRIAL FIBRILLATION 02/02/2018 SETH ENRIQUEZ MD Ot I65. 29 OCCLUSION AND STENOSIS OF UNSPECIFIED CA 02/02/2018 SETH ENRIQUEZ MD Ot Z11. 2 ENCOUNTER FOR SCREENING FOR OTHER BACTER 02/02/2018 SETH ENRIQUEZ MD Ot Z79. 01 SNF (CURRENT) USE OF ANTICOAGULANT 02/02/2018 SETH ERNIQUEZ MD Ot Z79. 82 TRAINING PROFESSIONAL (CURRENT) USE OF ASPIRIN 02/02/2018 SETH NERIQUEZ MD Ot Z79.899 OTHER TRAINING PROFESSIONAL (CURRENT) DRUG THERAPY 02/02/2018 SETH ENRIQUEZ MD Ot Z88. 0 ALLERGY STATUS TO PENICILLIN 02/02/2018 SETH ENRIQUEZ MD Ot Z88. 1 ALLERGY STATUS TO OTHER ANTIBIOTIC AGENT 02/02/2018 SETH ENRIQUEZ MD Ot Z88. 8 ALLERGY STATUS TO OT DRUG/MEDS/BIOL SUB 02/03/2018 SETH ENRIQUEZ MD Ot E11. 9 TYPE 2 DIABETES MELLITUS WITHOUT COMPLIC 02/03/2018 SETH ENRIQUEZ MD Ot E78. 1 PURE HYPERGLYCERIDEMIA 02/03/2018 SETH ENRIQUEZ MD Ot E78. 5 HYPERLIPIDEMIA, UNSPECIFIED 02/03/2018 SETH ENRIQUEZ MD Ot I11. 9 HYPERTENSIVE HEART DISEASE WITHOUT HEART 02/03/2018 SETH ENRIQUEZ MD Ot I25. 10 ATHSCL HEART DISEASE OF [place] CORONARY 02/03/2018 SETH ENRIQUEZ MD Ot I47. 2 VENTRICULAR TACHYCARDIA 02/03/2018 SETH ENRIQUEZ MD Ot I48. 0 PAROXYSMAL ATRIAL FIBRILLATION 02/03/2018 SETH ENRIQUEZ MD Ot I65. 29 OCCLUSION AND STENOSIS OF UNSPECIFIED CA 02/03/2018 SETH ENRIQUEZ MD Ot Z11. 2 ENCOUNTER FOR SCREENING FOR OTHER BACTER 02/03/2018 SETH ENRIQUEZ MD Ot Z79. 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) USE OF ANTICOAGULANT 02/03/2018 SETH ENRIQUEZ MD Ot Z79. 82 TRAINING PROFESSIONAL (CURRENT) USE OF ASPIRIN 02/03/2018 SETH ENRIQUEZ MD Ot Z79.899 OTHER SNF (CURRENT) DRUG THERAPY 02/03/2018 ESTH ENRIQUEZ MD Ot Z88. 0 ALLERGY STATUS TO PENICILLIN 02/03/2018 SETH ENRIQUEZ MD Ot Z88. 1 ALLERGY STATUS TO OTHER ANTIBIOTIC AGENT 02/03/2018 SETH ENRIQUEZ MD Ot Z88. 8 ALLERGY STATUS TO OTH DRUG/MEDS/BIOL SUB 02/03/2018 SETH ENRIQUEZ MD Ot E11. 9 TYPE 2 DIABETES MELLITUS WITHOUT COMPLIC 02/03/2018 SETH ENRIQUEZ MD Ot E78. 1 PURE HYPERGLYCERIDEMIA 02/03/2018 SETH ENRIQUEZ MD Ot E78. 5 HYPERLIPIDEMIA, UNSPECIFIED 02/03/2018 SETH ENRIQUEZ MD Ot I11. 9 HYPERTENSIVE HEART DISEASE WITHOUT HEART 02/03/2018 SETH ENRIQUEZ MD Ot I25. 10 ATHSCL HEART DISEASE OF [place] CORONARY 02/03/2018 SETH ENRIQUEZ MD Ot I47. 2 VENTRICULAR TACHYCARDIA 02/03/2018 SETH ENRIQUEZ MD Ot I48. 0 PAROXYSMAL ATRIAL FIBRILLATION 02/03/2018 SETH ENRIQUEZ MD Ot I65. 29 OCCLUSION AND STENOSIS OF UNSPECIFIED CA 02/03/2018 SETH ENRIQUEZ MD Ot Z11. 2 ENCOUNTER FOR SCREENING FOR OTHER BACTER 02/03/2018 SETH ENRIQUEZ MD Ot Z79. 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) USE OF ANTICOAGULANT 02/03/2018 SETH ENRIQUEZ MD Ot Z79. 82 SNF (CURRENT) USE OF ASPIRIN 02/03/2018 SETH ENRIQUEZ MD Ot Z79.899 OTHER TRAINING PROFESSIONAL (CURRENT) DRUG THERAPY 02/03/2018 SETH ENRIQUEZ MD Ot Z88. 0 ALLERGY STATUS TO PENICILLIN 02/03/2018 SETH ENRIQUEZ MD Ot Z88. 1 ALLERGY STATUS TO OTHER ANTIBIOTIC AGENT 02/03/2018 SETH ENRIQUEZ MD Ot Z88. 8 ALLERGY STATUS TO OT DRUG/MEDS/BIOL SUB 02/04/2018 SETH ENRIQUEZ MD Ot E11. 9 TYPE 2 DIABETES MELLITUS WITHOUT COMPLIC 02/04/2018 SETH ENRIQUEZ MD Ot E78. 1 PURE HYPERGLYCERIDEMIA 02/04/2018 SETH ENRIQUEZ MD Ot E78. 5 HYPERLIPIDEMIA, UNSPECIFIED 02/04/2018 SETH ENRIQUEZ MD Ot I11. 9 HYPERTENSIVE HEART DISEASE WITHOUT HEART 02/04/2018 SETH ENRIQUEZ MD Ot I25. 10 ATHSCL HEART DISEASE OF [place] CORONARY 02/04/2018 SETH ENRIQUEZ MD Ot I47. 2 VENTRICULAR TACHYCARDIA 02/04/2018 SETH ENRIQUEZ MD Ot I48. 0 PAROXYSMAL ATRIAL FIBRILLATION 02/04/2018 SETH ENRIQUEZ MD Ot I65. 29 OCCLUSION AND STENOSIS OF UNSPECIFIED CA 02/04/2018 SETH ENRIQUEZ MD Ot Z11. 2 ENCOUNTER FOR SCREENING FOR OTHER BACTER 02/04/2018 SETH ENRIQUEZ MD Ot Z79. 01 SNF (CURRENT) USE OF ANTICOAGULANT 02/04/2018 SETH ENRIQUEZ MD Ot Z79. 82 TRAINING PROFESSIONAL (CURRENT) USE OF ASPIRIN 02/04/2018 SETH ENRIQUEZ MD Ot Z79.899 OTHER SNF (CURRENT) DRUG THERAPY 02/04/2018 SETH ENRIQUEZ MD Ot Z88. 0 ALLERGY STATUS TO PENICILLIN 02/04/2018 SETH ENRIQUEZ MD Ot Z88. 1 ALLERGY STATUS TO OTHER ANTIBIOTIC AGENT 02/04/2018 SETH ENRIQUEZ MD Ot Z88. 8 ALLERGY STATUS TO OTH DRUG/MEDS/BIOL SUB 02/08/2018 SETH ENRIQUEZ MD Ot E11. 9 TYPE 2 DIABETES MELLITUS WITHOUT COMPLIC 02/08/2018 SETH ENRIQUEZ MD Ot E78. 1 PURE HYPERGLYCERIDEMIA 02/08/2018 SETH ENRIQUEZ MD Ot E78. 5 HYPERLIPIDEMIA, UNSPECIFIED 02/08/2018 SETH ENRIQUEZ MD Ot I11. 9 HYPERTENSIVE HEART DISEASE WITHOUT HEART 02/08/2018 SETH ENRIQUEZ MD Ot I25. 10 ATHSCL HEART DISEASE OF [place] CORONARY 02/08/2018 SETH ENRIQUEZ MD Ot I47. 2 VENTRICULAR TACHYCARDIA 02/08/2018 SETH ENRIQUEZ MD Ot I48. 0 PAROXYSMAL ATRIAL FIBRILLATION 02/08/2018 SETH ENRIQUEZ MD Ot I65. 29 OCCLUSION AND STENOSIS OF UNSPECIFIED CA 02/08/2018 SETH ENRIQUEZ MD Ot Z11. 2 ENCOUNTER FOR SCREENING FOR OTHER BACTER 02/08/2018 SETH ENRIQUEZ MD Ot Z79. 01 SNF (CURRENT) USE OF ANTICOAGULANT 02/08/2018 SETH ENRIQUEZ MD Ot Z79. 82 TRAINING PROFESSIONAL (CURRENT) USE OF ASPIRIN 02/08/2018 SETH ENRIQUZE MD Ot Z79.899 OTHER SNF (CURRENT) DRUG THERAPY 02/08/2018 SETH ENRIQUEZ MD Ot Z88. 0 ALLERGY STATUS TO PENICILLIN 02/08/2018 SETH ENRIQUEZ MD Ot Z88. 1 ALLERGY STATUS TO OTHER ANTIBIOTIC AGENT 02/08/2018 SETH ENRIQUEZ MD Ot Z88. 8 ALLERGY STATUS TO OTH DRUG/MEDS/BIOL SUB 02/10/2018 SETH ENRIQUEZ MD Ot E78. 5 HYPERLIPIDEMIA, UNSPECIFIED 02/10/2018 SETH ENRIQUEZ MD Ot I10 ESSENTIAL (PRIMARY) HYPERTENSION 02/10/2018 SETH ENRIQUEZ MD Ot I48. 0 PAROXYSMAL ATRIAL FIBRILLATION 02/12/2018 SETH ENRIQUEZ MD Ot E78. 5 HYPERLIPIDEMIA, UNSPECIFIED 02/12/2018 SETH ENRIQUEZ MD Ot I10 ESSENTIAL (PRIMARY) HYPERTENSION 02/12/2018 SETH ENRIQUEZ MD Ot I48. 0 PAROXYSMAL ATRIAL FIBRILLATION 02/16/2018 LOLY PURDY, M GENIA Ot E78 .5 HYPERLIPIDEMIA, UNSPECIFIED 02/16/2018 LOLY PURDY, M GENIA Ot I11 .9 HYPERTENSIVE HEART DISEASE WITHOUT HEART 02/16/2018 LOLY PURDY, M GENIA Ot I47 .2 VENTRICULAR TACHYCARDIA 02/16/2018 LOLY PURDY, M GENIA Ot I48 .0 PAROXYSMAL ATRIAL FIBRILLATION 02/26/2018 LOLY PURDY, M GENIA Ot I47 .2 VENTRICULAR TACHYCARDIA 02/26/2018 LOLY PURDY, M GENIA Ot I48 .0 PAROXYSMAL ATRIAL FIBRILLATION 03/05/2018 LOLY PURDY, Kaila CORMIER Ot E78 .5 HYPERLIPIDEMIA, UNSPECIFIED 03/05/2018 LOLY PURDY, M GENIA Ot I11 .9 HYPERTENSIVE HEART DISEASE WITHOUT HEART 03/05/2018 LOLY PURDY, M GENIA Ot I47 .2 VENTRICULAR TACHYCARDIA 03/05/2018 LOLY PURDY, M GENIA Ot I48 .0 PAROXYSMAL ATRIAL FIBRILLATION 03/11/2018 LOLY PURDY, Kaila CORMIER Ot E78 .5 HYPERLIPIDEMIA, UNSPECIFIED 03/11/2018 LOLY PURDY, Kaila CORMIER Ot I11 .9 HYPERTENSIVE HEART DISEASE WITHOUT HEART 03/11/2018 LOLY PURDY, M GENIA Ot I47 .2 VENTRICULAR TACHYCARDIA 03/11/2018 LOLY PURDY, M GENIA Ot I48 .0 PAROXYSMAL ATRIAL FIBRILLATION 10/14/2018 ANGY PURDY, DANA Faye Ot 429. 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 10/14/2018 DANA TRAVIS MD Ot 447. 8 ARTERIAL DISEASE NEC 10/14/2018 DANA TRAVIS MD Ot 793. 19 OTHER NONSPECIFIC ABNORMAL FINDING OF [place] 10/14/2018 KEVYN PERSAUD Ot 272.4 HYPERLIPIDEMIA NEC/NOS 10/14/2018 KEVYN PERSAUD Ot 397.0 TRICUSPID VALVE DISEASE 10/14/2018 KEVYN PERSAUD Ot 401.9 HYPERTENSION NOS 10/14/2018 KEVYN PERSAUD Ot 424.0 MITRAL VALVE DISORDER 10/14/2018 KEVYN PERSAUD Ot 427.31 ATRIAL FIBRILLATION 10/14/2018 KEVYN PERSAUD Ot 433.10 CAROTID ARTERY OCCLUSION W O CEREBRAL IN 10/14/2018 ANGY PURDY, DANA Faye Ot 793. 11 SOLITARY PULMONARY NODULE 10/14/2018 SETH ENRIQUEZ MD Ot 272. 4 HYPERLIPIDEMIA NEC/NOS 10/14/2018 SETH ENRIQUEZ MD Ot 401. 9 HYPERTENSION NOS 10/14/2018 SETH ENRIQUEZ MD Ot 427. 31 ATRIAL FIBRILLATION 10/14/2018 SETH ENRIQUEZ MD Ot 433. 10 CAROTID ARTERY OCCLUSION W O CEREBRAL IN 10/14/2018 SETH ENRIQUEZ MD Ot E78. 1 PURE HYPERGLYCERIDEMIA 10/14/2018 SETH ENRIQUEZ MD Ot E78. 2 MIXED HYPERLIPIDEMIA 10/14/2018 SETH ENRIQUEZ MD Ot I10 ESSENTIAL (PRIMARY) HYPERTENSION 10/14/2018 SETH ENRIQUEZ MD Ot I48. 0 PAROXYSMAL ATRIAL FIBRILLATION 10/14/2018 SETH ENRIQUEZ MD Ot E78. 5 HYPERLIPIDEMIA, UNSPECIFIED 10/14/2018 SETH ENRIQUEZ MD Ot I10 ESSENTIAL (PRIMARY) HYPERTENSION 10/14/2018 SETH ENRIQUEZ MD Ot I48. 0 PAROXYSMAL ATRIAL FIBRILLATION 10/14/2018 Kaila SALCIDO MD Ot I47 .2 VENTRICULAR TACHYCARDIA 10/14/2018 LOLY PURDY, Kaila CORMIER Ot I48 .0 PAROXYSMAL ATRIAL FIBRILLATION 10/14/2018 Kaila SALCIDO MD Ot E78 .5 HYPERLIPIDEMIA, UNSPECIFIED 10/14/2018 LOLY PURDY, Kaila CORMIER Ot I11 .9 HYPERTENSIVE HEART DISEASE WITHOUT HEART 10/14/2018 LOLY PURDY, Kaila CORMIER Ot I47 .2 VENTRICULAR TACHYCARDIA 10/14/2018 LOLY PURDY, Kaila CORMIER Ot I48 .0 PAROXYSMAL ATRIAL FIBRILLATION 10/16/2018 SETH ENRIQUEZ MD Ot E11. 9 TYPE 2 DIABETES MELLITUS WITHOUT COMPLIC 10/16/2018 SETH ENRIQUEZ MD Ot E78. 1 PURE HYPERGLYCERIDEMIA 10/16/2018 SETH ENRIQUEZ MD Ot E78. 2 MIXED HYPERLIPIDEMIA 10/16/2018 SETH ENRIQUEZ MD Ot I10 ESSENTIAL (PRIMARY) HYPERTENSION 10/16/2018 SETH ENRIQUEZ MD Ot I47. 2 VENTRICULAR TACHYCARDIA 10/16/2018 SETH ENRIQUEZ MD Ot I48. 0 PAROXYSMAL ATRIAL FIBRILLATION 10/16/2018 SETH ENRIQUEZ MD Ot I65. 23 OCCLUSION AND STENOSIS OF BILATERAL NOVA 10/16/2018 SETH ENRIQUEZ MD Ot Z79. 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 10/17/2018 POLI BO MD, Ot Z79.01 SNF (CURRENT) USE OF ANTICOAGULANT 10/17/2018 POLI BO MD Ot Z79.82 TRAINING PROFESSIONAL (CURRENT) USE OF ASPIRIN 10/17/2018 POLI BO MD Ot Z88 .0 ALLERGY STATUS TO PENICILLIN 10/17/2018 POLI BO MD Ot Z88 .2 ALLERGY STATUS TO SULFONAMIDES STATUS 10/17/2018 POLI BO MD Ot Z88 .8 ALLERGY STATUS TO OTH DRUG/MEDS/BIOL SUB 10/17/2018 POLI BO MD Ot Z95.818 PRESENCE OF OTHER CARDIAC IMPLANTS AND G 10/20/2018 POLI BO MD Ot I97.621 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 9 TYPE 2 DIABETES MELLITUS WITHOUT COMPLIC 11/07/2018 SETH ENRIQUEZ MD Ot E78. 1 PURE HYPERGLYCERIDEMIA 11/07/2018 SETH ENRIQUEZ MD Ot E78. 2 MIXED HYPERLIPIDEMIA 11/07/2018 SETH ENRIQUEZ MD Ot I10 ESSENTIAL (PRIMARY) HYPERTENSION 11/07/2018 SETH ENRIQUEZ MD Ot I47. 2 VENTRICULAR TACHYCARDIA 11/07/2018 SETH ENRIQUEZ MD Ot I48. 0 PAROXYSMAL ATRIAL FIBRILLATION 11/07/2018 SETH ENRIQUEZ MD Ot I65. 23 OCCLUSION AND STENOSIS OF BILATERAL NOVA 11/07/2018 SETH ENRIQUEZ MD Ot Z79. 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) USE OF ANTICOAGULANT 11/07/2018 SETH ENRIQUEZ MD Ot Z79.899 OTHER TRAINING PROFESSIONAL (CURRENT) DRUG THERAPY 11/13/2018 SETH ENRIQUEZ MD Ot E11. 9 TYPE 2 DIABETES MELLITUS WITHOUT COMPLIC 11/13/2018 SETH ENRIQUEZ MD Ot E78. 1 PURE HYPERGLYCERIDEMIA 11/13/2018 SETH ENRIQUEZ MD Ot E78. 2 MIXED HYPERLIPIDEMIA 11/13/2018 SETH ENRIQUEZ MD Ot I10 ESSENTIAL (PRIMARY) HYPERTENSION 11/13/2018 SETH ENRIQUEZ MD Ot I47. 2 VENTRICULAR TACHYCARDIA 11/13/2018 SETH ENRIQUEZ MD Ot I48. 0 PAROXYSMAL ATRIAL FIBRILLATION 11/13/2018 SETH ENRIQUEZ MD Ot I65. 23 OCCLUSION AND STENOSIS OF BILATERAL NOVA 11/13/2018 SETH ENRIQUEZ MD Ot Z79. 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) USE OF ANTICOAGULANT 11/13/2018 SETH ENRIQUEZ MD Ot Z79.899 OTHER TRAINING PROFESSIONAL (CURRENT) DRUG THERAPY 04/01/2019 DANA TRAVIS MD Ot 429. 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 04/01/2019 DANA TRAVIS MD Ot 447. 8 ARTERIAL DISEASE NEC 04/01/2019 DANA TRAVIS MD Ot 793. 19 OTHER NONSPECIFIC ABNORMAL FINDING OF [place] 04/01/2019 KEVYN PERSAUD Ot 272.4 HYPERLIPIDEMIA NEC/NOS 04/01/2019 KEVYN PERSAUD Ot 397.0 TRICUSPID VALVE DISEASE 04/01/2019 KEVYN PERSAUD Ot 401.9 HYPERTENSION NOS 04/01/2019 KEVYN PERSAUD Ot 424.0 MITRAL VALVE DISORDER 04/01/2019 KEVYN PERSAUD Ot 427.31 ATRIAL FIBRILLATION 04/01/2019 KEVYN PERSAUD Ot 433.10 CAROTID ARTERY OCCLUSION W O CEREBRAL IN 04/01/2019 ANGY PURDY, DANA Faye Ot 793. 11 SOLITARY PULMONARY NODULE 04/01/2019 SETH ENRIQUEZ MD Ot 272. 4 HYPERLIPIDEMIA NEC/NOS 04/01/2019 SETH ENRIQUEZ MD Ot 401. 9 HYPERTENSION NOS 04/01/2019 SETH ENRIQUEZ MD Ot 427. 31 ATRIAL FIBRILLATION 04/01/2019 SETH ENRIQUEZ MD Ot 433. 10 CAROTID ARTERY OCCLUSION W O CEREBRAL IN 04/01/2019 SETH ENRIQUEZ MD Ot E78. 1 PURE HYPERGLYCERIDEMIA 04/01/2019 SETH ENRIQUEZ MD Ot E78. 2 MIXED HYPERLIPIDEMIA 04/01/2019 SETH ENRIQUEZ MD Ot I10 ESSENTIAL (PRIMARY) HYPERTENSION 04/01/2019 SETH ENRIQUEZ MD Ot I48. 0 PAROXYSMAL ATRIAL FIBRILLATION 04/01/2019 SETH ENRIQUEZ MD Ot E78. 5 HYPERLIPIDEMIA, UNSPECIFIED 04/01/2019 SETH ENRIQUEZ MD Ot I10 ESSENTIAL (PRIMARY) HYPERTENSION 04/01/2019 SETH ENRIQUEZ MD Ot I48. 0 PAROXYSMAL ATRIAL FIBRILLATION 04/01/2019 Kaila SALCIDO MD Ot I47 .2 VENTRICULAR TACHYCARDIA 04/01/2019 Kaila SALCIDO MD Ot I48 .0 PAROXYSMAL ATRIAL FIBRILLATION 04/01/2019 Kaila SALCIDO MD Ot E78 .5 HYPERLIPIDEMIA, UNSPECIFIED 04/01/2019 Kaila SALCIDO MD Ot I11 .9 HYPERTENSIVE HEART DISEASE WITHOUT HEART 04/01/2019 Kaila SALCIDO MD Ot I47 .2 VENTRICULAR TACHYCARDIA 04/01/2019 Kaila SALCIDO MD Ot I48 .0 PAROXYSMAL ATRIAL FIBRILLATION 04/01/2019 SETH ENRIQUEZ MD Ot E11. 9 TYPE 2 DIABETES MELLITUS WITHOUT COMPLIC 04/01/2019 SETH ENRIQUEZ MD Ot E78. 1 PURE HYPERGLYCERIDEMIA 04/01/2019 SETH ENRIQUEZ MD Ot E78. 2 MIXED HYPERLIPIDEMIA 04/01/2019 SETH ENRIQUEZ MD Ot I10 ESSENTIAL (PRIMARY) HYPERTENSION 04/01/2019 MINA PURDY, SETH Draper Ot I47. 2 VENTRICULAR TACHYCARDIA 04/01/2019 MINA PURDY, SETH Draper Ot I48. 0 PAROXYSMAL ATRIAL FIBRILLATION 04/01/2019 MINA PURDY, SETH Draper Ot I65. 23 OCCLUSION AND STENOSIS OF BILATERAL NOVA 04/01/2019 MINA PURDY, SETH Draper Ot Z79. 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) USE OF ANTICOAGULANT 04/01/2019 SETH ENRIQUEZ MD, Ot Z79.899 OTHER TRAINING PROFESSIONAL (CURRENT) DRUG THERAPY 12/07/2019 [facility], KEVYN K Ot E78.2 MIXED HYPERLIPIDEMIA 12/07/2019 [facility], KEVYN K Ot I11.9 HYPERTENSIVE HEART DISEASE WITHOUT HEART 12/07/2019 [facility], KEVYN K Ot I34.0 NONRHEUMATIC MITRAL (VALVE) INSUFFICIENC 12/07/2019 [facility], KEVYN K Ot I47.2 VENTRICULAR TACHYCARDIA 12/07/2019 [facility], KEVYN K Ot I48.0 PAROXYSMAL ATRIAL FIBRILLATION 12/07/2019 [facility], KEVYN K Ot I48.19 OTHER PERSISTENT ATRIAL FIBRILLATION 12/07/2019 [facility], KEVYN K Ot E78.2 MIXED HYPERLIPIDEMIA 12/07/2019 [facility], KEVYN K Ot I11.9 HYPERTENSIVE HEART DISEASE WITHOUT HEART 12/07/2019 [facility], KEVYN K Ot I34.0 NONRHEUMATIC MITRAL (VALVE) INSUFFICIENC 12/07/2019 [facility], KEVYN K Ot I47.2 VENTRICULAR TACHYCARDIA 12/07/2019 [facility], KEVYN K Ot I48.0 PAROXYSMAL ATRIAL FIBRILLATION 12/07/2019 [facility], KEVYN K Ot I48.19 OTHER PERSISTENT ATRIAL FIBRILLATION 12/13/2019 ANGY PURDY, DANA Faye Ot 793. 11 SOLITARY PULMONARY NODULE 12/13/2019 SETH ENRIQUEZ MD Ot 272. 4 HYPERLIPIDEMIA NEC/NOS 12/13/2019 SETH ENRIQUEZ MD Ot 401. 9 HYPERTENSION NOS 12/13/2019 SETH ENRIQUEZ MD Ot 427. 31 ATRIAL FIBRILLATION 12/13/2019 SETH ENRIQUEZ MD Ot 433. 10 CAROTID ARTERY OCCLUSION W O CEREBRAL IN 12/13/2019 SETH ENRIQUEZ MD Ot E78. 1 PURE HYPERGLYCERIDEMIA 12/13/2019 SETH ENRIQUEZ MD Ot E78. 2 MIXED HYPERLIPIDEMIA 12/13/2019 SETH ENRIQUEZ MD Ot I10 ESSENTIAL (PRIMARY) HYPERTENSION 12/13/2019 SETH ENRIQUEZ MD Ot I48. 0 PAROXYSMAL ATRIAL FIBRILLATION 12/13/2019 SETH ENRIQUEZ MD Ot E78. 5 HYPERLIPIDEMIA, UNSPECIFIED 12/13/2019 SETH ENRIQUEZ MD Ot I10 ESSENTIAL (PRIMARY) HYPERTENSION 12/13/2019 SETH ENRIQUEZ MD Ot I48. 0 PAROXYSMAL ATRIAL FIBRILLATION 12/13/2019 LOLY PURDY, Kaila CORMIER Ot I47 .2 VENTRICULAR TACHYCARDIA 12/13/2019 LOLY PURDY, Kaila CORMIER Ot I48 .0 PAROXYSMAL ATRIAL FIBRILLATION 12/13/2019 LOLY PURDY, Kaila CORMIER Ot E78 .5 HYPERLIPIDEMIA, UNSPECIFIED 12/13/2019 LOLY PURDY, Kaila CORMIER Ot I11 .9 HYPERTENSIVE HEART DISEASE WITHOUT HEART 12/13/2019 LOLY PURDY, Kaila CORMIER Ot I47 .2 VENTRICULAR TACHYCARDIA 12/13/2019 LOLY PURDY, Kaila CORMIER Ot I48 .0 PAROXYSMAL ATRIAL FIBRILLATION 12/13/2019 SETH ENRIQUEZ MD Ot E11. 9 TYPE 2 DIABETES MELLITUS WITHOUT COMPLIC 12/13/2019 SETH ENRIQUEZ MD Ot E78. 1 PURE HYPERGLYCERIDEMIA 12/13/2019 SETH ENRIQUEZ MD Ot E78. 2 MIXED HYPERLIPIDEMIA 12/13/2019 SETH ENRIQUEZ MD Ot I10 ESSENTIAL (PRIMARY) HYPERTENSION 12/13/2019 SETH ENRIQUEZ MD Ot I47. 2 VENTRICULAR TACHYCARDIA 12/13/2019 SETH ENRIQUEZ MD Ot I48. 0 PAROXYSMAL ATRIAL FIBRILLATION 12/13/2019 SETH ENRIQUEZ MD Ot I65. 23 OCCLUSION AND STENOSIS OF BILATERAL NOVA 12/13/2019 SETH ENRIQUEZ MD Ot Z79. 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) USE OF ANTICOAGULANT 12/13/2019 SETH ENRIQUEZ MD Ot Z79.899 OTHER SNF (CURRENT) DRUG THERAPY 12/13/2019 ANAYA-ANMOL PA, KEVYN K Ot E78.2 MIXED HYPERLIPIDEMIA 12/13/2019 [facility], KEVYN K Ot I11.9 HYPERTENSIVE HEART DISEASE WITHOUT HEART 12/13/2019 [facility], KEVYN K Ot I34.0 NONRHEUMATIC MITRAL (VALVE) INSUFFICIENC 12/13/2019 [facility], KEVYN K Ot I47.2 VENTRICULAR TACHYCARDIA 12/13/2019 [facility], KEVYN K Ot I48.0 PAROXYSMAL ATRIAL FIBRILLATION 12/13/2019 [facility], KEVYN K Ot I48.19 OTHER PERSISTENT ATRIAL FIBRILLATION 01/04/2020 [facility], KEVYN K Ot E78.2 MIXED HYPERLIPIDEMIA 01/04/2020 [facility], KEVYN K Ot I11.9 HYPERTENSIVE HEART DISEASE WITHOUT HEART 01/04/2020 [facility], KEVYN K Ot I34.0 NONRHEUMATIC MITRAL (VALVE) INSUFFICIENC 01/04/2020 [facility], KEVYN K Ot I47.2 VENTRICULAR TACHYCARDIA 01/04/2020 [facility] [facility], KEVYN K Ot I48.0 PAROXYSMAL ATRIAL FIBRILLATION 01/04/2020 [facility], KEVYN K Ot I48.19 OTHER PERSISTENT ATRIAL FIBRILLATION 01/06/2020 [facility], KEVYN K Ot E78.2 MIXED HYPERLIPIDEMIA 01/06/2020 [facility], KEVYN K Ot I11.9 HYPERTENSIVE HEART DISEASE WITHOUT HEART 01/06/2020 [facility], KEVYN K Ot I34.0 NONRHEUMATIC MITRAL (VALVE) INSUFFICIENC 01/06/2020 [facility], KEVYN K Ot I47.2 VENTRICULAR TACHYCARDIA 01/06/2020 [facility], KEVYN K Ot I48.0 PAROXYSMAL ATRIAL FIBRILLATION 01/06/2020 [facility], KEVYN K Ot I48.19 OTHER PERSISTENT ATRIAL FIBRILLATION Procedures There is no data. Results Test Result Range Automated blood complete blood count ( mogram) panel - 02/02/18 07:11 Blood leukocytes automated count (number/volume) 6.1 10*3/uL 4.3-11.0 Blood erythrocytes automated count (number/volume) 4.70 10*6/uL 4.35-5.85 Venous blood hemoglobin measurement (mass/volume) 15.4 g/dL 13.3-17.7 Blood hematocrit (volume fraction) 45 % 40-54 Automated erythrocyte mean corpuscular volume 96 [ foz_us] 80-99 Automated erythrocyte mean corpuscular h emoglobin (mass per erythrocyte) 33 pg 25-34 Automated erythrocyte mean corpuscular h emoglobin concentration measurement (mass/volume) 34 g/dL 32-36 Automated erythrocyte distribution width ratio 13. 4 % 10.0- 14.5 Automated blood platelet count (count/volume) 163 10*3/uL 130-400 Automated blood platelet mean volume measurement 10.9 [foz_us] 7.4-10.4 PT panel in platelet poor plasma by coag ulation assay - 02/02/18 07:11 Prothrombin time (PT) in platelet poor plasma by coagu lation assay 16.5 s 12.2-14.7 INR in platelet poor plasma or blood by coagulation as say 1.3 0.8-1.4 Activated partial thromboplastin time (a PTT) in platelet poor plasma bycoagulation assay - 02/02/18 07:11 Activated partial thromboplastin time (a PTT) in platelet poor plasma bycoagulation assay 28 s 24-35 Comprehensive metabolic panel - 02/02/18 07:11 Serum or plasma sodium measurement (moles/volume) 141 mmol/L 135-145 Serum or plasma potassium measurement (moles/volume) 3.6 mmol/L 3.6-5.0 Serum or plasma chloride measurement (moles/volume) 104 mmol/L 98-107 Carbon dioxide 28 mmol/L 21-32 Serum or plasma anion gap determination (moles/volume) 9 mmol/L 5-14 Serum or plasma urea nitrogen measurement (mass/volume ) 23 mg/dL 7-18 Serum or plasma creatinine measurement (mass/volume) 1.02 mg/dL 0.60-1.30 Serum or plasma urea nitrogen/creatinine mass ratio 23 NRG Serum or plasma creatinine measurement w ith calculation of estimated glomerular filtration rate > NRG Serum or plasma glucose measurement (mass/volume) 166 mg/dL 70-105 Serum or plasma calcium measurement (mass/volume) 9.5 mg/dL 8.5-10.1 Serum or plasma total bilirubin measurement (mass/volu me) 1.4 mg/dL 0.1-1.0 Serum or plasma alkaline phosphatase laurence surement (enzymatic activity/volume) 65 U/L 40-136 Serum or plasma aspartate aminotransfera se measurement (enzymatic activity/volume) 27 U/L 5-34 Serum or plasma alanine aminotransferase measurement (enzymatic activity/volume) 28 U/L 0-55 Serum or plasma protein measurement (mass/volume) 7.0 g/dL 6.4-8.2 Serum or plasma albumin measurement (mass/volume) 4.5 g/dL 3.2-4.5 Lipid 1996 panel - 02/02/18 07:11 Serum or plasma triglyceride measurement (mass/volume) 85 mg/dL <150 Serum or plasma cholesterol measurement (mass/volume) 151 mg/dL < 200 Serum or plasma cholesterol in HDL measurement (mass/v olume) 46 mg/dL 40-60 Cholesterol in LDL [mass/volume] in serum or plasma by direct assay 92 mg/dL 1-129 Serum or plasma cholesterol in VLDL measurement (mass/ volume) 17 mg/dL 5-40 Methicillin resistant Staphylococcus aur eus (MRSA) screening culture - 02/02/18 07:11 Methicillin resistant Staphylococcus aureus (MRSA) scr eening culture NEG NRG Encounters ACCT No. Visit Date/Time Discharge Status Pt. Type Provider Facility Loc./Unit Complaint [id number] 12/06/2019 09:11:00 020 23:59:59 CLS Outpatient ELISHA PERSAUD [facility] CARD HYPERTENSIO N [id number] 10/17/2018 09:29:00 10:13:00 DIS Emergency POLI BO MD [facility] ER HEART MONITOR PATCH BLE EDING [id number] 10/14/2018 08:49:00 018 23:59:59 CLS Outpatient SETH ENRIQUEZ MD [facility] CATH AFIB [id number] 02/12/2018 13:54:00 018 23:59:59 CLS Outpatient Kaila SALCIDO MD [facility] CARD PAF,NSVT [id number] 02/02/2018 06:51:00 018 13:52:00 DIS Outpatient SETH ENRIQUEZ MD [facility] NSVT,PAF [id number] 01/28/2018 08:01:00 018 23:59:59 CLS Outpatient Kaila SALCIDO MD [facility] CARD I47.2 NSVT [id number] 01/21/2018 07:09:00 018 23:59:59 CLS Outpatient SETH ENRIQUEZ MD [facility] CAROTID ARTERY STENOSIS [id number] 01/01/2018 12:07:00 018 23:59:59 CLS Preadmit SETH ENRIQUEZ MD [facility] CAROTID ARTERY STENOSIS [id number] 11/27/2016 08:44:00 017 23:59:59 CLS Outpatient SETH ENRIQUEZ MD [facility] HTN, [id number] 05/31/2015 08:03:00 015 23:59:59 CLS Outpatient SETH ENRIQUEZ MD [facility] CAROTID ARTERY STENOSIS HTN HLE PAF [id number] 11/15/2014 09:00:00 015 23:59:59 CLS Outpatient DANA TRAVIS MD [facility] RAD FOLLOW UP PULM. NODULE [id number] 06/13/2014 13:34:00 014 23:59:59 CLS Outpatient ELISHA PERSAUD [facility] CARD AFIB,CAROTI D ARTERY STENOSIS,HTN,HLP [id number] 03/22/2014 09:06:00 014 23:59:59 CLS Outpatient DANA TRAVIS MD [facility] RAD ABNORMAL CHEST XRAY [id number] 02/16/2014 00:32:00 014 03:56:00 DIS Emergency ANEL PURDY, [place] Gannon [facility] ER VOMITING,FEVER, COUGHING,SORE THROAT [id number] 04/08/2013 07:58:00 013 23:59:59 CLS Outpatient MINA PURDY, SETH [facility] GAYLE AFIB
[2020-03-22 13:03] LABS: BASOPHILS % (AUTO) 0 % (0-10); EOSINOPHILS % (AUTO) 1 % (0-10); HEMATOCRIT 40 % (40-54); HEMOGLOBIN 13.2 G/DL (13.3-17.7); LYMPHOCYTES # (AUTO) 1.4 X 10^3 (1.0-4.0); LYMPHOCYTES % (AUTO) 22 % (12-44); MEAN CORPUSCULAR HEMOGLOBIN 32 PG (25-34); MEAN CORPUSCULAR HGB CONC 33 G/DL (32-36); MEAN CORPUSCULAR VOLUME 99 FL (80-99); MEAN PLATELET VOLUME 10.8 FL (7.4-10.4); MONOCYTES # (AUTO) 0.5 X 10^3 (0.0-1.0); MONOCYTES % (AUTO) 9 % (0-12); NEUTROPHILS # (AUTO) 4.2 X 10^3 (1.8-7.8); NEUTROPHILS % (AUTO) 68 % (42-75); PLATELET COUNT 185 10^3/uL (130-400); RED CELL DISTRIBUTION WIDTH 13.9 % (10.0-14.5); WHITE BLOOD COUNT 6.2 10^3/uL (4.3-11.0)
[2020-03-22 13:22] LABS: ALANINE AMINOTRANSFERASE 52 U/L (0-55); ALBUMIN 4.1 GM/DL (3.2-4.5); ALKALINE PHOSPHATASE 233 U/L (40-136); BILIRUBIN,TOTAL 0.6 MG/DL (0.1-1.0); BUN/CREATININE RATIO 28; CARBON DIOXIDE 29 MMOL/L (21-32); CHLORIDE 97 MMOL/L (98-107); CREATININE SERUM 0.94 MG/DL (0.60-1.30); GFR ESTIMATED > 60; GLUCOSE 143 MG/DL (70-105); POTASSIUM 4.2 MMOL/L (3.6-5.0); SODIUM 137 MMOL/L (135-145)
[2020-03-22] MEDS: meTOprolol TARTRATE 50 MG (LOPRESSOR) TAB PO SCH ×2 (13:25→21:21)
[2020-03-22 13:30] LABS: CALCIUM 14.1 MG/DL (8.5-10.1)
[2020-03-22] MEDS ORDERED: MELATONIN 3 MG TABLET PO PRN (13:30)
[2020-03-22] MEDS ORDERED: ONDANSETRON 4 MG/2 ML (SDV) Z0FRAN IV PRN (13:30)
[2020-03-22] MEDS ORDERED: DIATRIZOATE MEGLUM/SODIUM 37% 120 ML (GASTROGRAFIN) PO ONE (13:30)
[2020-03-22] MEDS ORDERED: BISACODYL 10 MG SUPP (DULCOLAX) PR PRN (13:30)
[2020-03-22] MEDS ORDERED: IOHEXOL 350 MG/ML 100 ML (OMNIPAQUE 350) VIAL IV ONE (13:30)
[2020-03-22] MEDS ORDERED: HOLD METFORMIN - RECEIVED CONTRAST 20 ML VIAL IV SCH (13:30)
[2020-03-22] MEDS ORDERED: ENOXAPARIN 40 MG/0.4 ML (LOVENOX) SYR SC SCH (13:30)
[2020-03-22] MEDS ORDERED: ANTACID SUSP 30 ML UDC (MYLANTA) PO PRN (13:30)
[2020-03-22] MEDS ORDERED: NS 100 ML (IVPB) BAG IV ONE (13:30)
[2020-03-22] MEDS ORDERED: polyethylene glycoL POWDER 17 GM (MIRALAX) PACK PO PRN (13:30)
[2020-03-22] MEDS ORDERED: ONDANSETRON 4 MG (ZOFRAN) ORAL DISSOLVE TAB PO PRN (13:30)
[2020-03-22] MEDS ORDERED: diphenhydrAMINE 25 MG TAB (BENADRYL) PO PRN (13:30)
[2020-03-22] MEDS ORDERED: ACETAMINOPHEN 325 MG TABLET PO PRN (13:30)
[2020-03-22] MEDS: NS IV 1000 ML 1,000 ML IV SCH ×3 (13:32→22:02)
[2020-03-22] MEDS ORDERED: ENOXAPARIN 30 MG/0.3 ML (LOVENOX) SYR SC SCH (14:00)
[2020-03-22] MEDS ORDERED: FUROSEMIDE 40 MG/4 ML INJ (LASIX) IVP NR (14:00)
--- NOTE | 2020-03-22 14:10 | NUR ---
PER DR HERNANDEZ. CHECK PT/INR. IF INR IS BETWEEN 2-3 DC THE LOVENOX. IF LOWER THAN 2. GIVE THE LOVENOX.
--- NOTE | 2020-03-22 14:14 | NUR ---
CALLED DR OSEGUERA WITH THE CONSULT. HE WILL BE ABLE TO SEE THE PATIENT TOMORROW.
[2020-03-22 14:21] LABS: INR 1.7 (0.8-1.4); PROTHROMBIN TIME PATIENT 20.6 SEC (12.2-14.7)
--- NOTE | 2020-03-22 14:47 | Physical Therapy Evaluation ---
PT Evaluation-General Medical Diagnosis Admission Date March 22, 2020 at 11:45 Medical Diagnosis: abnormal calcium levels Onset Date: March 22, 2020 Therapy Diagnosis Therapy Diagnosis: difficulty walking Height/Weight Height (Feet): 6 Height (Inches): 3.00 Weight (Pounds): 162 Weight (Ounces): 0.0 Precautions Precautions/Isolations: Fall Prevention, Standard Precautions Weight Bear Status Right Lower Extremity: Right Weight Bearing/Tolerated Left Lower Extremity: Left Weight Bearing/Tolerated Referral Physician: Lucas Reason for Referral: Evaluation/Treatment Social History Current Living Status: Significant Other Prior Prior Level of Function SCALE: Activities may be completed with or without assistive devices. 1-Kfotclybmh-ysdamnp completes the activity by him/herself with no assistance from a helper. 5-Set-up or Clean-up Assistance-helper sets up or cleans up; patient completes activity. [place] assists only prior to or following the activity. 4-Supervision or Touching Assistance-helper provides verbal cues and/or touching/steadying and/or contact guard assistance as patient completes activity. Assistance may be provided throughout the activity or intermittently. 3-Partial/Moderate Assistance-helper does LESS THAN HALF the effort. [place] lifts, holds or supports trunk or limbs, but provides less than half the effort. 2-Substantial/Maximal Assistance-helper does MORE THAN HALF the effort. [place] lifts or holds trunk or limbs and provides more than half the effort. 3-Apfyffbbt-ulihnj does ALL the effort. Patient does none of the effort to complete the activity. Or, the assistance of 2 or more helpers is required for the patient to complete the activity. If activity was not attempted, code reason: 7-Patient Refused. 9-Not Applicable-not attempted and the patient did not perform the activity before the current illness, exacerbation or injury. 10-Not Attempted due to Environmental Limitations-(lack of equipment, weather restraints, etc.). 88-Not Attempted due to Medical Conditions or Safety Concerns. Bed Mobility: 6 Transfers (B,C,W/C): 6 Gait: 6 Stairs: 6 Indoor Mobility (Ambulation): Independent Stairs: Independent PT Evaluation-Current Subjective States that he was doing okay until Friday when he did too much and was unable to walk after cleaning out gutters. He reports that his calcium levels are now too high. Pain Numeric Pain Scale: 0-No Pain Objective Patient Orientation: Person, Place, Time, Situation ROM/Strength ROM Lower Extremities WFL Strength Lower Extremities 4/5 grossly Transfers Roll Left to Right (QC): 5 Sit to Lying (QC): 5 (5) Lying to Sitting/Side of Bed(Q: 5 Sit to Stand (QC): 5 Gait Does the Patient Walk?: Yes Mode of Locomotion: Walk Anticipated Mode of Locomotion: Walk Walk 10 feet (QC): 5 Walk 50 ft with 2 Turns(QC): 5 Walk 150 ft (QC): 5 Distance: 300' Gait Assistive Device: None Comments/Gait Description The patient has some gait instability during ambulation. Able to ambulate without AD. Balance Sitting Static: Normal Sitting Dynamic: Normal Standing Static: Good Standing Dynamic: Good Assessment/Needs 74 y.o. female with a diagnosis abnormal calcium levels. The patient has mild gait instability. We will re-check the patient tomorrow with probable discharge from therapy services at that time if he is still doing well. Rehab Potential: Good PT Short Term Goals Short Term Goals Time Frame: March 24, 2020 Roll Left & Right: 6 Sit to lyin Lying to sitting on side of be: 6 Sit to stand: 6 Chair/hsr-zn-sbwzv transfer: 6 Toilet transfer: 6 Car transfer: 6 Walk 10 feet: 6 Walk 50 feet with two turns: 6 Walk 150 feet: 6 Walking 10ft on uneven surface: 5 1 step (curb): 5 4 steps: 5 12 steps: 5 Picking up objects: 5 PT Mcfp Goals Mcfp Goals PT Manager [employer]oles[employer] Goals Time Frame: March 28, 2020 Roll Left & Right (QC): 6 Sit to Lying (QC): 6 Lying-Sitting on Side/Bed(QC): 6 Sit to Stand (QC): 6 Chair/Xak-vo-Reqsc Xfer(QC): 6 Toilet Transfer (QC): 6 Car Transfer (QC): 6 Does the Patient Walk: Yes Walk 10 feet (QC): 6 Walk 50ft with 2 Turns (QC): 6 Walk 150 ft (QC): 6 Walking 10ft on Uneven Surface: 6 1 Step (curb) (QC): 6 4 Steps (QC): 6 12 Steps (QC): 6 Picking up an Object (QC): 6 PT Plan Problem List Problem List: Activity Tolerance, Functional Strength, Balance, Gait Treatment/Plan Treatment Plan: Continue Plan of Care Treatment Plan: Functional Activity Debbi, Functional Strength, Gait, Safety, Therapeutic Exercise Treatment Duration: March 28, 2020 Frequency: 6 times per week Estimated Hrs Per Day: .5 hour per day Patient and/or Family Agrees t: Yes Time/GCodes Time In: 1415 Time Out: 1430 Total Billed Treatment Time: 15 Total Billed Treatment 1, RAMA Osorio C x 15' SAMI KO PT March 22, 2020 14:47
--- NOTE | 2020-03-22 15:03 | Occ Therapy Progress Note ---
Therapy Progress Note OT order received. Pt. direct admit this date. Will evaluate pt. tomorrow when H and P available to consult on medical history and needs. 1503 ESTEFANIA DYER OT March 22, 2020 15:03
--- NOTE | 2020-03-22 15:30 | Diagnostic Imaging Report ---
PROCEDURE: CT chest, abdomen and pelvis with contrast. TECHNIQUE: Multiple contiguous axial images were obtained through the chest, abdomen, and pelvis after the administration of intravenous contrast. Auto Exposure Controls were utilized during the CT exam to meet ALARA standards for radiation dose reduction. INDICATION: Hypercalcemia. COMPARISON: Chest CT performed 11/15/2014. No previous abdominal pelvic imaging. FINDINGS: CT chest: No dominant lung mass or suspicious pulmonary nodule. There is no thoracic lymphadenopathy. The aorta is patent and nonaneurysmal. Prominence of the proximal and central pulmonary arterial branches with distal tapering is a redemonstrated finding raising the question of underlying pulmonary hypertension. The lung parenchyma, itself, appears unremarkable. No thoracic effusion or pneumothorax. There were no findings of primary or secondary thoracic involvement by malignancy. CT abdomen/pelvis: Having developed from the CT of 2014 are innumerable peripherally enhancing target-like lesions throughout the right and left hepatic lobes consistent with interval development of extensive and widespread hepatic involvement by metastatic disease. The larger of these lesions measures 4.5 cm maximal and they are too numerous to count. In many areas the mass has become confluent and inseparable. There is no bile duct dilatation. Inseparable from the pancreatic tail is a new soft tissue mass measuring 5.0 x 3.7 cm pancreatic neck and head unremarkable. No intrahepatic or extrahepatic bile duct dilatation. The adrenals are negative. Unobstructed kidneys appear within normal limits. Nonfocal spleen is normal in size. There is no ascites. There is no abdominal pelvic mesenteric or retroperitoneal lymphadenopathy. There is no suspicious lytic or sclerotic bony disease within the chest, abdomen or pelvis. IMPRESSION: 1. Development of a heterogeneous but solid appearing pancreatic tail mass with widespread multifocal hepatic metastases. Metastatic pancreatic malignancy suspected, this could be adenocarcinoma or an endocrine tumor. 2. Percutaneous biopsy of the liver lesion could be performed with CT guidance, if desired. 3. No evidence for thoracic metastasis. 4. Likely underlying chronic changes reflective of at least some magnitude of pulmonary arterial hypertension. Dictated by: Dictated on workstation # [id number]
[2020-03-22] MEDS ORDERED: SITA1TBM4 PO (15:41)
[2020-03-22] MEDS ORDERED: LOSA1TAB26 PO (15:41)
[2020-03-22] MEDS ORDERED: ASPI-983 PO (15:46)
[2020-03-22] MEDS ORDERED: OMEG-9 PO (15:46)
[2020-03-22] MEDS ORDERED: WARF-48 PO (15:46)
--- NOTE | 2020-03-22 15:53 | NUR ---
I SPOKE WITH THE PT (HE HAD HIS BOTTLE) AND WENT THRU THE EXT MED HISTORY TO COMPLETE THE MED REC WARFARIN 5MG- THE DIRECTIONS ON THE BOTTLE SHOW " 1 TAB DAILY EXCEPT ON AND TAKE A TAB" HOWEVER DUE TO THE PTS LAST INR HE IS NOW TAKING 1 TAB EVERY DAY METOPROLOL TART 50MG WAS LAST FILLED ON 01-11-2020 #180/90DS- THIS WAS NOT LISTED ON THE EXT MED HISTORY OTC MEDS: ASPIRIN FISH OIL PT HAS AN INSERT FOR OMEGA 3 CAPSULES FROM [employer]= PT SAYS HE IS CURRENTLY NOT TAKING THEM AND WILL FINISH THE FISH OIL AND THEN TAKE THE OMEGA 3 Addendum: 03/23/20 at 1510 by MOIZ PATEL CPhT LATANOPROST DROPS FILLED 03-08-2020 #3
[2020-03-22 15:55] VITALS: BP 145/57
[2020-03-22] MEDS: inSUlin ASPART (NovoLOG) 1 UNIT/0.01 ML (CHARGE PER UNIT) SC SCH ×2 (16:02→20:38)
--- NOTE | 2020-03-22 16:59 | History & Physical-Hospitalist ---
History of Present Illness HPI/Chief Complaint Mr. Richardson is a 74-year-old white male seen in the office for follow-up of diabetes. 2 days ago he obtained his usual blood tests including a basic metabolic panel and A1c level and an INR is he's on chronic Coumadin therapy for chronic atrial fibrillation. At that time it was noted that his calcium was 13.1 his last calcium level done on November 22 was 10.6 with the upper limits of normal on this lab being 10.8. He reports over the past 2 weeks he's been feeling increasingly fatigued with loss of appetite. He denied bone pain denied night sweats chills or fever. We did send off a PTH level which was appr opriately suppressed at 5.3 pg/mL the lower end of the our lab reference range being 12. He has lost a significant amount of weight over the past 2 years but it began when he was diagnosed with type II diabetes he is maintained about a 70 pound weight loss from his high 10 years ago by portion control. He actually was stable in weight compared to 4 months ago at 156 pounds. He also denies abdominal pain change in bowel habit of constipation or diarrhea and has noted no bright red blood per rectum. He has no past smoking history. Past medical history is seeing for chronic atrial fibrillation and nonsustained ventricular tachycardia for which she takes beta magali therapy and is followed by Dr. García is the last month his exercise tolerance had been good. He has no known history of coronary artery disease. Source: patient Date Seen 03/22/20 Time Seen by a Provider: 11:00 Attending Physician Dana Conn MD PCP Dana Conn MD Referring Physician Date of Admission March 22, 2020 at 11:45 Home Medications & Allergies Home Medications Reviewed patient Home Medication Reconciliation performed by pharmacy medication reconciliations dietetic technician and/or nursing. Patients Allergies have been reviewed. Allergies Allergies Coded Allergies Penicillins (Unverified Allergy, Unknown, 05/31/15) amiodarone (Verified Allergy, Unknown, 02/02/18) diltiazem (Verified Allergy, Unknown, 02/02/18) sulfamethoxazole (Verified Allergy, Unknown, 02/02/18) trimethoprim (Verified Allergy, Unknown, 02/02/18) Past Oxkhqyl-Lcoklg-Xxmvfk Hx Past Med/Social Hx: Reviewed and Corrections made Patient Social History Alcohol Use: Denies Use Recreational Drug Use: No Smoking Status: Never a Smoker Physical Abuse Screen: No Sexual Abuse: No Recent Foreign Travel: No Contact w/other who traveled: No Recent Hopitalizations: No Recent Infectious Disease Expo: No Immunizations Up To Date Date of Pneumonia Vaccine: Sep 04, 2015 Date of Influenza Vaccine: Sep 04, 2017 Past Medical History Reproductive: No History of Blood Disorders: No Adverse Reaction to Blood Carrera: No Family History Cardiovascular disease 19 FATHER 19 MOTHER Congenital heart disease Diabetes mellitus 19 FATHER G8 SISTER Review of Systems Constitutional: see HPI Physical Exam Physical Exam Vital Signs Vital Signs - First Documented 03/22/20 12:00 Temp 36.0 Pulse 56 Resp 18 B/P (MAP) 168/89 (115) Pulse Ox 100 O2 Delivery Room Air Capillary Refill : Height, Weight, BMI Height: 6'3.00" Weight: 162lbs. 0.0oz. 73.201396he; 18.55 BMI Method:Stated General Appearance: No Apparent Distress, Chronically ill, Thin HEENT: PERRL/EOMI, TMs Normal, Normal ENT Inspection, Pharynx Normal Neck: Other (No bruits no adenopathy no thyroid abnormality to palpation.) Respiratory: Chest Non Tender, Lungs Clear, Normal Breath Sounds, No Accessory Muscle Use, No Respiratory Distress Cardiovascular: No Edema, No Gallop, No JVD, No Murmur, Irregularly Irregular (Heart rate in the 60s) Gastrointestinal: Normal Bowel Sounds, No Organomegaly, No Pulsatile Mass, Non Tender, Soft Neurologic/Psychiatric: Depressed Affect, Other (Fatigued appearing but alert) Lymphatic: No Adenopathy Results Results/Procedures Labs Laboratory Tests 03/22/20 12:50 Patient resulted labs reviewed. Assessment/Plan Admission Diagnosis 1. Significant hypercalcemia with weight loss concerning for underlying malignancy will initiate aggressive IV rehydration. Hyperparathyroidism ruled out with appropriately suppressed PTH level. We will consult oncology and obtain CT scan of the chest abdomen and pelvis tomorrow after IV hydration and holding metformin. His alkaline phosphatase is concerning for some form of bone malignancy total protein level not elevated but will obtain serum protein electrophoresis. 2. Type II diabetes mellitus is been under excellent control will hold antidiabetic therapy continue diabetic diet repeat basic metabolic panel in the morning's line 3. Dehydration secondary to number 1 normal saline IV rehydration. 3. Chronic atrial fibrillation rate controlled continue Coumadin INR level on the 11th of this month was 2 no change in therapy for now. 4. History of nonsustained ventricular tachycardia and frequent PVCs continue beta magali therapy. Admission Status: Inpatient Order (span 2 midnights) Reason for Inpatient Admission: See admission diagnosis Clinical Quality Measures DVT/VTE Risk/Contraindication: Risk Factor Score Per Nursin RFS Level Per Nursing on Admit: 2=Moderate DANA CONN MD March 22, 2020 16:59
[2020-03-22] MEDS ORDERED: warFARin 5 MG (COUMADIN) TAB PO SCH (18:00)
[2020-03-22 19:10] VITALS: BP 137/53
[2020-03-22] MEDS: DOCUSATE SODIUM 100 MG (COLACE) CAP PO SCH (20:38)
[2020-03-23 00:44] VITALS: BP 148/68
[2020-03-23 04:00] VITALS: BP 153/72
[2020-03-23] MEDS: NS IV 1000 ML 1,000 ML IV SCH ×3 (04:38→16:49)
[2020-03-23] MEDS: inSUlin ASPART (NovoLOG) 1 UNIT/0.01 ML (CHARGE PER UNIT) SC SCH ×4 (06:21→21:47)
[2020-03-23 06:22] LABS: BUN/CREATININE RATIO 25; CALCIUM 12.9 MG/DL (8.5-10.1); CARBON DIOXIDE 27 MMOL/L (21-32); CHLORIDE 102 MMOL/L (98-107); CREATININE SERUM 0.89 MG/DL (0.60-1.30); GFR ESTIMATED > 60; GLUCOSE 112 MG/DL (70-105); POTASSIUM 4.1 MMOL/L (3.6-5.0); SODIUM 140 MMOL/L (135-145)
[2020-03-23 07:22] VITALS: BP 159/73
[2020-03-23] MEDS: meTOprolol TARTRATE 50 MG (LOPRESSOR) TAB PO SCH ×2 (08:15→21:47)
[2020-03-23] MEDS: DOCUSATE SODIUM 100 MG (COLACE) CAP PO SCH ×2 (08:16→21:40)
[2020-03-23 09:34] LABS: INR 2.4 (0.8-1.4); PROTHROMBIN TIME PATIENT 27.2 SEC (12.2-14.7)
[2020-03-23] MEDS: FUROSEMIDE 40 MG/4 ML INJ (LASIX) IVP SCH ×2 (10:13→16:49)
--- NOTE | 2020-03-23 10:36 | Occ Therapy Progress Note ---
Therapy Progress Note Pt's chart reviewed and OT attempted evaluation this AM. When OT introduced self, pt asked "what kind of therapy". OT explained the purpose and benefits of OT while pt is in the hospital. Pt declined OT services stating he has no problems with ADLs and is at the same functional level as he was prior to admission. Due to pt declining services and reporting he is at PLOF, skilled OT services are not indicated at this time. D/C from OT. 1, visit 1025 ART PRAJAPATI OT March 23, 2020 10:36
--- NOTE | 2020-03-23 11:48 | NUR ---
Palliative Care Rn in to see patient at the request of Dr. Zavala due to the new diagnosis of highly suspicious for metastatic disease. Patient was in restroom washing hands upon my arrival. He is independent with his ADLs and expressed his desire to go home. We discussed the new diagnosis possibility and he asked lots of questions which I cannot answer at this time due to no confirmed diagnosis. Will need to obtain biopsy before treatment options are discussed. I supported him through this difficult time, especially with no family around to discuss with.
[2020-03-23 11:49] VITALS: BP 157/74
--- NOTE | 2020-03-23 12:01 | Physical Therapy Daily Note ---
PT Daily Note-Current Subjective Pt up in BR upon arrival. Pt denies pain but says "I just need to get rid of the weakness". Pt rates himself at 80-90% of full strength. Pt agreeable to PT. Mental Status Patient Orientation: Person, Place, Situation Attachments: IV Transfers SCALE: Activities may be completed with or without assistive devices. 2-Hdldsfhosw-dppbkgx completes the activity by him/herself with no assistance from a helper. 5-Set-up or Clean-up Assistance-helper sets up or cleans up; patient completes activity. [place] assists only prior to or following the activity. 4-Supervision or Touching Assistance-helper provides verbal cues and/or touching/steadying and/or contact guard assistance as patient completes activity. Assistance may be provided throughout the activity or intermittently. 3-Partial/Moderate Assistance-helper does LESS THAN HALF the effort. [place] l ifts, holds or supports trunk or limbs, but provides less than half the effort. 2-Substantial/Maximal Assistance-helper does MORE THAN HALF the effort. [place] lifts or holds trunk or limbs and provides more than half the effort. 8-Gpbapvxmj-oochob does ALL the effort. Patient does none of the effort to complete the activity. Or, the assistance of 2 or more helpers is required for t he patient to complete the activity. If activity was not attempted, code reason: 7-Patient Refused. 9-Not Applicable-not attempted and the patient did not perform the activity before the current illness, exacerbation or injury. 10-Not Attempted due to Environmental Limitations-(lack of equipment, weather restraints, etc.). 88-Not Attempted due to Medical Conditions or Safety Concerns. Weight Bearing Right Lower Extremity: Right Weight Bearing/Tolerated Left Lower Extremity: Left Weight Bearing/Tolerated Gait Training Pt amb with hand on IVpole and SBA x 450ft at steady pace. Pt did not show signs of fatigue. Treatments Pt back to bed with call light and all needs met. Assessment Current Status: Good Progress Pt up adlib in room. Pt appears steady on feet, no unsteadiness or LOB during ambulation. Pt back to bed with call light and all needs met. PT Short Term Goals Short Term Goals Time Frame: March 24, 2020 Roll Left & Right: 6 Sit to lyin Lying to sitting on side of be: 6 Sit to stand: 6 Chair/vty-hz-tasgt transfer: 6 Toilet transfer: 6 Car transfer: 6 Walk 10 feet: 6 Walk 50 feet with two turns: 6 Walk 150 feet: 6 Walking 10ft on uneven surface: 5 1 step (curb): 5 4 steps: 5 12 steps: 5 Picking up objects: 5 PT Compressed Gases Tester Goals Prison Goals PT Prison Goals Time Frame: March 28, 2020 Roll Left & Right (QC): 6 Sit to Lying (QC): 6 Lying-Sitting on Side/Bed(QC): 6 Sit to Stand (QC): 6 Chair/Gko-nw-Vlpfd Xfer(QC): 6 Toilet Transfer (QC): 6 Car Transfer (QC): 6 Does the Patient Walk: Yes Walk 10 feet (QC): 6 Walk 50ft with 2 Turns (QC): 6 Walk 150 ft (QC): 6 Walking 10ft on Uneven Surface: 6 1 Step (curb) (QC): 6 4 Steps (QC): 6 12 Steps (QC): 6 Picking up an Object (QC): 6 PT Plan Treatment/Plan Treatment Plan: Continue Plan of Care Treatment Plan: Functional Activity Debbi, Functional Strength, Gait, Safety, Therapeutic Exercise Treatment Duration: March 28, 2020 Frequency: 6 times per week Estimated Hrs Per Day: .5 hour per day Patient and/or Family Agrees t: Yes Time/GCodes Time In: 930 Time Out: 945 Total Billed Treatment Time: 15 Total Billed Treatment 1, gait 15' CHRISTINA BARAHONA CPTA March 23, 2020 12:01
--- NOTE | 2020-03-23 13:29 | NUR ---
RD ASSESSMENT PMHx: DM; afib PT INTERACTION: Pt was awake and pleasant during dietary consult for MST score. Pt states current appetite is good. Note avg PO intake of 75% x2meal, per chart review. Pt states following DM diet at home, and has no issues with chewing/swallowing food. Pt states no recent issues with nausea, vomiting, constipation, or diarrhea. Note last BM was 03/22, and pt currently on bowel regimen of colace BID, per chart review. Pt states recent 10# wt loss x8mon. "I went from 158# to 148# in that timeframe." Note current wt of 158#, per chart review. Pt states great control of current DM management, and that his last HbA1c was 6.5 taken 03/20/20. Upon visual assessment, pt appears thin with a BMI of 19.4. Given pt's age, this BMI is classified as Underweight. Given wt hx and oral intake, pt does not meet criteria for malnutrition at this time, per ASPEN guidelines. ABNORMAL NUTRITION-RELATED LAB VALUES LOW: HIGH: BUN 22; glu 112; Ca 12.9 Est. kcal needs: 9177-7554 kcal | 25-30 kcal/kg Est. Pro needs: 72-87 g Pro | 1.0-1.2 g Pro/kg PES STATEMENT: Given current PO intake and appetite, no nutrition diagnosis at this time (NO-1.1) INTERVENTION: Continue with current diet order of Regular diet. Pt may benefit from consistent CHO restriction if blood glucose levels become elevated. Discontinue current supplementation orders of Ensure Enlive with meals. Pt appears to be eating well at this time. Will continue to follow and reassess as pt needs, intake, and status change. MONITOR/EVALUATE: PO Intake; Plan of Care; Hydration Status; Weight Status; Lab Values Balwinder Cuellar, MS, RD, LD
[2020-03-23] MEDS ORDERED: LATA2.5D5 OU (15:08)
[2020-03-23 16:00] VITALS: BP 141/74
[2020-03-23] MEDS ORDERED: PAMIDRONATE 90 MG/10 ML (AREDIA) IV ONE (16:45)
--- NOTE | 2020-03-23 16:57 | Progress Note - Hospitalist ---
Subjective HPI/CC On Admission Date Seen by Provider: March 23, 2020 Time Seen by Provider: 10:00 Mr. Richardson is a 74-year-old white male seen in the office for follow-up of diabetes. 2 days ago he obtained his usual blood tests including a basic metabolic panel and A1c level and an INR is he's on chronic Coumadin therapy for chronic atrial fibrillation. At that time it was noted that his calcium was 13.1 his last calcium level done on November 22 was 10.6 with the upper limits of normal on this lab being 10.8. He reports over the past 2 weeks he's been feeling increasingly fatigued with loss of appetite. He denied bone pain denied night sweats chills or fever. We did send off a PTH level which was appropriately suppressed at 5.3 pg/mL the lower end of the our lab reference range being 12. He has lost a significant amount of weight over the past 2 years but it began when he was diagnosed with type II diabetes he is maintained about a 70 pound weight loss from his high 10 years ago by portion control. He actually was stable in weight compared to 4 months ago at 156 pounds. He also denies abdominal pain change in bowel habit of constipation or diarrhea and has noted no bright red blood per rectum. He has no past smoking history. Past medical history is seeing for chronic atrial fibrillation and nonsustained ventricular tachycardia for which she takes beta magali therapy and is followed by Dr. García is the last month his exercise tolerance had been good. He has no known history of coronary artery disease. Subjective/Events-last exam He denies any complaints or concerns. He denies any fevers or chills. He denies any chest pain or shortness of breath. He denies any abdominal pain, nausea, or vomiting. He has been up and walking. He has been eating and drinking well. Objective Exam Vital Signs Vital Signs Date Time Temp Pulse Resp B/P (MAP) Pulse Ox O2 Delivery O2 Flow Rate FiO2 03/23/20 16:00 36.8 58 16 141/74 (96) 100 Room Air Capillary Refill : Less Than 3 Seconds General Appearance: No Apparent Distress, Thin HEENT: PERRL/EOMI, Pharynx Normal, Other Neck: Normal Inspection (Wearing glasses), Supple Respiratory: Lungs Clear, Normal Breath Sounds, No Respiratory Distress Cardiovascular: Regular Rate, Rhythm, No Edema, No Murmur, Normal Peripheral Pulses Gastrointestinal: Normal Bowel Sounds, Non Tender, Soft Extremity: Normal Inspection, Non Tender, No Pedal Edema Neurologic/Psychiatric: Alert, Oriented x3, No Motor/Sensory Deficits, Normal Mood/Affect Skin: Normal Color, Warm/Dry Results/Procedures Lab Laboratory Tests 03/23/20 05:22 Patient resulted labs reviewed. Imaging: Reviewed Imaging Report, Discussed Imaging with Radiologist Assessment/Plan Assessment and Plan Assess & Plan/Chief Complaint Hypercalcemia Pancreatic mass Liver lesions Calcium 14 on arrival, improved to 12.8 today Continue IV fluids and Lasix Giving one-time dose of pamidronate today PTH levels decrease Vitamin D levels normal PTH related peptide pending CT chest/abdomen/pelvis revealed pancreatic tail mass and multiple liver lesions Oncology consulted, appreciate assistance Planning to schedule CT-guided biopsy of liver lesion Discussed with radiology, needs to be off of Coumadin, INR less than 1.5 Hold Coumadin and repeat INR Friday morning Planning for CT-guided biopsy Friday as an outpatient Palliative care consulted Type II diabetes mellitus Sliding scale insulin Paroxysmal atrial fibrillation History of nonsustained V. tach Continue metoprolol Hold Coumadin DVT prophylaxis: Already receiving therapeutic anticoagulation Diagnosis/Problems Diagnosis/Problems (1) Hypercalcemia Status: Acute (2) Pancreatic mass Status: Acute (3) Liver lesion Status: Acute (4) HTN (hypertension) Status: Chronic Qualifiers: Hypertension type: essential hypertension Qualified Codes: I10 - Essential (primary) hypertension (5) PAF (paroxysmal atrial fibrillation) Status: Chronic (6) NSVT (nonsustained ventricular tachycardia) Status: Chronic Clinical Quality Measures DVT/VTE Risk/Contraindication: Risk Factor Score Per Nursin RFS Level Per Nursing on Admit: 2=Moderate LISA HERNANDEZ MD March 23, 2020 16:57
[2020-03-23] MEDS ORDERED: PAMIDRONATE IV NR ×2 (17:00)
[2020-03-23] MEDS ORDERED: FUROSEMIDE 40 MG/4 ML INJ (LASIX) IVP SCH (17:00)
[2020-03-23] MEDS ORDERED: NS IV NR ×2 (17:00)
[2020-03-23] MEDS ORDERED: warFARin 2.5 MG (COUMADIN) TAB PO SCH (18:00)
--- NOTE | 2020-03-23 18:03 | CONSULTATION REPORT ---
DATE OF SERVICE: 03/23/2020 The patient is admitted to room 411. IMPRESSION: 1. A 74-year-old male admitted with increasing weakness, hypercalcemia and weight loss. 2. CT scan of the abdomen with pancreatic tail mass and numerous enhancing liver lesions suspicious for metastatic disease. RECOMMENDATIONS: 1. Continue management of hypercalcemia with aggressive hydration and one dose of pamidronate 60 mg IV. 2. Schedule the patient for CT-guided liver biopsy for tissue diagnosis. 3. Schedule an appointment to see me at [facility] on an outpatient basis 3 to 4 days after the biopsy to review the results and discuss about diagnosis and further options. The patient is a 74-year-old male who gives approximately 50- to 60-pound weight loss over the last 1 to 2 years part of which was intentional after diagnosis of diabetes mellitus. Recently, he was becoming increasingly weaker and he was noted to have hypercalcemia on an outpatient basis. Following this, he became extremely weak and was unable to function at home and was admitted to the hospital for further evaluation. In the interim, his calcium level was increasing. The patient had CT scan of the chest, abdomen and pelvis at the time of admission. He was noted to have a pancreatic tail mass with numerous enhancing liver lesions. Because of this, an oncology consultation was requested. The patient denied any diarrhea or flushing. No new bony aches or pains. He has been physically active until few days ago. No chest pain, palpitations, orthopnea or PND. No hematochezia or melena. No new bony aches or pains. No new lumps or masses. PAST MEDICAL HISTORY: Significant for chronic atrial fibrillation and episode of nonsustained V-tach. He is on beta blockers for this as well as warfarin and follows with cardiology. No history of coronary artery disease. He was diagnosed with diabetes mellitus type 2 approximately 2 years ago and part of the weight loss was intentional because of this. SOCIAL HISTORY: The [place] is [place]. He has two children, a son who lives in [place] and a daughter who lives in [place], [place]. 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 Denied any tobacco, alcohol or recreational drug use. FAMILY HISTORY: Significant for diabetes mellitus and coronary artery disease in his father. His sister is also diabetic. Mother had cardiac problems. No malignancies in the family that the patient knows of. PHYSICAL EXAMINATION: GENERAL: Today showed an elderly male, well developed, well nourished, awake and oriented, in no acute distress. VITAL SIGNS: Temperature was 36.8 degree centigrade, pulse rate of 58, respirations 16, blood pressure 141/74 with oxygen saturation of 100% on room air. HEENT: Normocephalic, extraocular muscles intact, conjunctivae pink, oral mucosa slightly dry. NECK: Supple, with no JVD. No cervical, supraclavicular or axillary lymphadenopathy palpable. CHEST: Symmetrical. LUNGS: Fairly clear to auscultation without wheezes or rales. CARDIOVASCULAR: Regular with occasional missed beats. No murmurs or gallops heard. ABDOMEN: Soft, nontender with liver edge palpable at the costal margin. No splenomegaly palpable. No other masses palpable. EXTREMITIES: Showed no edema. Skin turgor was fair. NEUROLOGIC: Grossly intact without focal motor deficits. LABORATORY DATA: CBC done yesterday showed white count of 6.2, hemoglobin 13.2, platelet count 185,000 with neutrophil count 4.2 and lymphocyte count 1.4. Chemistry panel done at the time of admission showed relatively normal electrolytes. BUN was 26 and creatinine 0.94 with GFR more than 60 mL per minute. Nonfasting glucose was 143. Measured calcium was 14.1 with an albumin level of 4.1. AST was minimally elevated at 42 and alkaline phosphatase at 233. Rest of the liver function studies were within normal limits. Repeat calcium level done today morning was 12.9. The patient had a CT scan of the chest, abdomen and pelvis done on 03/22/2020. This showed development of a heterogenous, but solid appearing pancreatic tail mass measuring 5 x 3.7 cm. Widespread multifocal hepatic peripherally enhancing lesions throughout the liver suspicious for malignancy. No evidence of thoracic metastasis. Prominence of proximal and central pulmonary artery branches with distal tapering raising the question of underlying pulmonary hypertension. Thank you for allowing me to participate in this patient's care. I will follow the patient with you and make appropriate recommendations. Job ID: [id number] DocumentID: [id number] Dictated Date: 03/23/2020 17:27:33 Java Core Developer Date: 03/23/2020 18:02:59 Dictated By: CINDI OSEGUERA MD
[2020-03-23 20:37] VITALS: BP 131/70
[2020-03-24] VITALS: BP 135/84
[2020-03-24] MEDS: NS IV 1000 ML 1,000 ML IV SCH ×3 (02:16→12:30)
[2020-03-24 04:00] VITALS: BP 138/72
[2020-03-24] MEDS: inSUlin ASPART (NovoLOG) 1 UNIT/0.01 ML (CHARGE PER UNIT) SC SCH ×2 (06:11→11:32)
[2020-03-24] MEDS: meTOprolol TARTRATE 50 MG (LOPRESSOR) TAB PO SCH (06:40)
[2020-03-24] MEDS: DOCUSATE SODIUM 100 MG (COLACE) CAP PO SCH (06:40)
[2020-03-24] MEDS: FUROSEMIDE 40 MG/4 ML INJ (LASIX) IVP SCH (06:40)
[2020-03-24 06:48] LABS: BUN/CREATININE RATIO 25; CALCIUM 11.8 MG/DL (8.5-10.1); CARBON DIOXIDE 26 MMOL/L (21-32); CHLORIDE 105 MMOL/L (98-107); CREATININE SERUM 0.81 MG/DL (0.60-1.30); GFR ESTIMATED > 60; GLUCOSE 132 MG/DL (70-105); POTASSIUM 4.1 MMOL/L (3.6-5.0); SODIUM 141 MMOL/L (135-145)
[2020-03-24 07:28] VITALS: BP 150/78
[2020-03-24 08:19] LABS: INR 2.1 (0.8-1.4); PROTHROMBIN TIME PATIENT 24.7 SEC (12.2-14.7)
[2020-03-24] MEDS ORDERED: WARF-48 PO (10:52)
--- NOTE | 2020-03-24 11:37 | Physical Therapy Progress Note ---
Therapy Progress Note Patient up independently and dressed to go home on this date. PT to dismiss patient at this time. BELL RUBIO PT March 24, 2020 11:37
--- NOTE | 2020-03-24 12:43 | Discharge Summary ---
Discharge Summary Hospital Course Was the Problem List Reviewed?: Yes Problems/Dx: (1) Hypercalcemia Status: Acute (2) Pancreatic mass Status: Acute (3) Liver lesion Status: Acute (4) HTN (hypertension) Status: Chronic Qualifiers: Qualified Codes: I10 - Essential (primary) hypertension (5) PAF (paroxysmal atrial fibrillation) Status: Chronic (6) NSVT (nonsustained ventricular tachycardia) Status: Chronic Hospital Course Date of Admission: March 22, 2020 at 11:45 Admission Diagnosis : Hypercalcemia Family Physician/Provider: Dana Conn MD Date of Discharge: 03/24/20 Discharge Diagnosis: Hypercalcemia, pancreatic mass, liver lesions Hospital Course: Paddy Richardson is a 74-year-old male with past medical history of diabetes, atrial fibrillation on Coumadin, who presented with hypercalcemia. He was treated with fluids and IV bisphosphonate and his calcium levels improved. His workup involved a CT scan which revealed a pancreatic tail mass and several liver lesions. Oncology was consulted and recommended CT-guided biopsy. Radiology was consulted and recommended holding his Coumadin and then performing biopsy on Friday. His calcium levels improved and he was discharged home in stable condition. He will hold his Coumadin through the weekend. He will have an INR checked mag lab on Friday morning. He is scheduled for CT-guided biopsy on Friday pending his INR result. They would like to the level to be less than 1.5. He is scheduled for a follow-up with Dr. Higuera in the cancer center on next , March 30, to discuss the results of his biopsy. Labs and Pending Lab Test: Laboratory Tests 03/23/20 15:25: Glucometer 218H 03/23/20 19:42: Glucometer 206H 03/24/20 05:48: Glucometer 120H 03/24/20 06:05: Prothrombin Time 24.7H, INR Comment 2.1H, Sodium Level 141, Potassium Level 4.1, Chloride Level 105, Carbon Dioxide Level 26, Anion Gap 10, Blood Urea Nitrogen 20H, Creatinine 0.81, Estimat Glomerular Filtration Rate > 60, BUN/Creatinine Ratio 25, Glucose Level 132H, Calcium Level 11.8H 03/24/20 11:03: Glucometer 291H Home Meds Active Warfarin Sodium 5 Mg Tablet 5 Mg PO HS 7 Days Hold for biopsy which is scheduled for Friday, 03/27 Reported Latanoprost 2.5 Ml Drops 1 Drop OU HS Fish Oil 1,400 mg Softgel (Isabella-3/Dha/Epa/Fish Oil) 1 Each Capsule.dr 2 Each PO DAILY Aspirin EC (Aspirin) 81 Mg Tablet.dr 81 Mg PO HS Losartan-Hctz 100-12.5 mg Tab (Losartan/Hydrochlorothiazide) 1 Each Tablet 1 Ea PO DAILY Janumet Xr 50-1,000 mg Tablet (Sitagliptin Phos/Metformin HCl) 1 Each Tbmp.24hr 2 Tab PO DAILY W/BREAKFAST Metoprolol Tartrate 50 Mg Tablet 50 Mg PO BID Assessment/Pt Instructions Take medications as prescribed. Do not take your Coumadin until after your biopsy. You will have an INR at [facility] lab on Friday. You are scheduled for a CT- guided biopsy on Friday. You have an appointment scheduled with Dr. Higuera on to discuss the biopsy results. Discharge Planning: <30 minutes discharge planning Discharge Instructions Discharge Diet: No Restrictions Activity as Tolerated: Yes Consultations Oncology Discharge Physical Examination Vital Signs Vital Signs Date Time Temp Pulse Resp B/P (MAP) Pulse Ox O2 Delivery O2 Flow Rate FiO2 03/24/20 08:02 97 Room Air 03/24/20 07:28 36.5 53 18 150/78 (102) General Appearance: No Apparent Distress, Thin Respiratory: Lungs Clear, Normal Breath Sounds, No Respiratory Distress Cardiovascular: Regular Rate, Rhythm, No Edema, No Murmur Gastrointestinal: Normal Bowel Sounds, Non Tender, Soft Extremity: Normal Inspection, Non Tender, No Pedal Edema Skin: Normal Color, Warm/Dry Neurologic/Psychiatric: Alert, Oriented x3, No Motor/Sensory Deficits, Normal Mood/Affect Allergies: Coded Allergies: Penicillins (Unverified Allergy, Unknown, 05/31/15) amiodarone (Verified Allergy, Unknown, 02/02/18) diltiazem (Verified Allergy, Unknown, 02/02/18) sulfamethoxazole (Verified Allergy, Unknown, 02/02/18) trimethoprim (Verified Allergy, Unknown, 02/02/18) Copy Copies To 1: DANA CONN MD Copies To 2: CINDI HIGUERA Discharge Summary Date of Admission March 22, 2020 at 11:45 Date of Discharge Discharge Date: March 24, 2020 Discharge Time: 12:42 Admission Diagnosis Hypercalcemia Consults/Procedures Consulations Oncology Discharge Diagnosis Hypercalcemia, Pancreatic mass, Liver lesions (1) Hypercalcemia Status: Acute (2) Pancreatic mass Status: Acute (3) Liver lesion Status: Acute (4) HTN (hypertension) Status: Chronic Qualifiers: Qualified Codes: I10 - Essential (primary) hypertension (5) PAF (paroxysmal atrial fibrillation) Status: Chronic (6) NSVT (nonsustained ventricular tachycardia) Status: Chronic Clinical Quality Measures DVT/VTE Risk/Contraindication: Risk Factor Score Per Nursin RFS Level Per Nursing on Admit: 2=Moderate LISA HERNANDEZ MD March 24, 2020 12:42
--- NOTE | 2020-03-24 12:45 | Progress Note ---
Standard Progress Note Progress Notes/Assess & Plan Date Seen by a Provider: March 24, 2020 Time Seen by a Provider: 12:42 Progress/Assessment & Plan 74 year-old male admitted with hypercalcemia and fatigue. Treated with hydration and pamidronate with improvement in calcium level. CT scans showed pancreatic tail mass with numerous enhancing lesions in the liver suspicious for malignancy. Patient is on warfarin because of atrial fibrillation with therapeutic INR. This has been on hold since yesterday. Patient scheduled for CT-guided biopsy on Friday provided INR is appropriate. I have tentatively scheduled a follow-up for him at the cancer center on 03/30/2020 at 0945 to review the pathology report. Okay from oncology standpoint for discharge home. CINDI OSEGUERA March 24, 2020 12:45
[2020-03-24 14:55] VITALS: BP 150/78
== END 2020-03-24 14:55 | disposition home or self-care (01) | DRG 641 ==
LOC: 4TH 11:45
PROVIDERS: ADMIT Internal Medicine; ATTEND Internal Medicine
DX: E83.52 Hypercalcemia (principal); K86.9 Disease of pancreas, unspecified; K76.9 Liver disease, unspecified; I48.0 Paroxysmal atrial fibrillation; I47.2 Ventricular tachycardia; E11.9 Type 2 diabetes mellitus without complications; E86.0 Dehydration; R63.0 Anorexia; R53.83 Other fatigue; R63.4 Abnormal weight loss; Z79.01 Long term (current) use of anticoagulants
CPT/HCPCS: 36415; 71260; 74177; 80048; 80053; 82306; 82652; 82962; 83519; 84155; 84165; 85025; 85610

== ENCOUNTER 2020-03-27 07:33 | Outpatient (CLI) | payer MEDICARE ==
[2020-03-27] VITALS (13 sets, daily range): BP systolic 123–163; BP diastolic 62–93
[~2020-03-27 07:33] MED LIST changes: +ASPI-983 PO; +LATA2.5D5 OU; +LOSA1TAB26 PO; +OMEG-9 PO; +SITA1TBM4 PO
[2020-03-27] MEDS ORDERED: NS IV 1000 ML 1,000 ML IV STA (08:01)
[2020-03-27 08:02] LABS: HEMOGLOBIN 13.1 G/DL (13.3-17.7); MEAN PLATELET VOLUME 10.4 FL (7.4-10.4); RED CELL DISTRIBUTION WIDTH 14.3 % (10.0-14.5); WHITE BLOOD COUNT 4.5 10^3/uL (4.3-11.0)
[2020-03-27 08:14] LABS: PROTHROMBIN TIME PATIENT 13.6 SEC (12.2-14.7)
[2020-03-27] MEDS ORDERED: MIDAZOLAM 2 MG/2 ML (VERSED) VIAL IVP ONE (08:15)
[2020-03-27] MEDS ORDERED: fentaNYL INJECTION 100 MCG/2 ML AMP IVP ONE (08:15)
[2020-03-27] MEDS ORDERED: LIDOCAINE 1% INJ 20 ML 20 ML VIAL INJ ONE (08:15)
[2020-03-27] MEDS ORDERED: NS IV 1000 ML 1,000 ML ONE (08:26)
[2020-03-27] MEDS ORDERED: MIDAZOLAM 2 MG/2 ML (VERSED) VIAL ONE (08:26)
[2020-03-27] MEDS ORDERED: LIDOCAINE 1% INJ 20 ML 20 ML VIAL ONE (08:26)
[2020-03-27] MEDS ORDERED: fentaNYL INJECTION 100 MCG/2 ML AMP ONE (08:26)
[2020-03-27] MEDS ORDERED: HYDROcodone/APAP 5 MG/325 MG (LORTAB) TAB PO PRN (09:45)
--- NOTE | 2020-03-27 09:49 | Pre-Op Note & Conscious Sedat ---
Pre-Operative Progress Note H&P Reviewed The H&P was reviewed, patient examined and no changes noted. Date H&P Reviewed: March 27, 2020 Time H&P Reviewed: 08:00 Pre-Op Diagnosis: Liver lesions Conscious Sedation Pre-Proced Time 08:00 ASA Score 2 For ASA 3 and 4: Consider anesthesia and medical clearance. Also, for patients with a history of failed moderate sedation consider anesthesia. Airway Lungs Heart ASA score ASA 1: a normal healthy patient ASA 2: a patient with a mild systemic disease (mid diabetes, controlled hypertension, obesity ASA 3: a patient with a severe systemic disease that limits activity (angina, COPD, prior Myocardial infarction) ASA 4: a patient with an incapacitating disease that is a constant threat to life (CHF, renal failure) ASA 5: a moribund patient not expected to survive 24 hrs. (ruptured aneurysm) ASA 6: a declared brain- patient whose organs are being harvested. For emergent operations, add the letter E after the classification Mallampati Classification Grade 2 Sedation Plan Analgesia, Amnesia, Plan communicated to team members, Discussed options with patient/fam, Discussed risks with patient/fam The patient is an appropriate candidate to undergo the planned procedure, sedation, and anesthesia. The patient immediately re-assessed prior to indication. MITCHEL MEDINA MD March 27, 2020 09:49
--- NOTE | 2020-03-27 09:56 | Diagnostic Imaging Report ---
INDICATION: Liver lesions. Patient presents for CT-guided biopsy. TECHNIQUE: All CT scans use one or more of the following dose optimizing techniques: automated exposure control, MA and/or KvP adjustment based on a patient size and exam type, or iterative reconstruction. Patient was brought to the CT suite placed into a supine position. Axial imaging through the abdomen is performed evaluate appropriate entry site. The procedure was performed utilizing conscious sedation with radiology nursing and constant patient monitoring. Patient was administered total of 50 mcg of fentanyl intravenously and 1 mg of Versed intravenously. Total procedure time was 9 minutes. Right abdomen was prepped and draped in usual sterile fashion. Small amount of 1% lidocaine was utilized for local anesthesia. A 18-gauge coaxial Temno needle was advanced into the inferior right lobe of the liver. 4 core biopsies were obtained. Needle was withdrawn during injection of a blood patch. Patient tolerated the procedure well and left the Department in stable condition. IMPRESSION: CT-guided core biopsy of right lobe liver mass, utilizing conscious sedation. Pathology results are currently pending. Dictated by: Dictated on workstation # [id number]
== END 2020-03-27 12:15 | disposition home or self-care (01) ==
LOC: SDC 07:33
PROVIDERS: ATTEND Internal Medicine Hematology & Oncology
DX: K76.9 Liver disease, unspecified (principal)
CPT/HCPCS: 36415; 77012; 82962; 85027; 85610; 85730; 99156

== ENCOUNTER 2020-04-05 07:34 | Outpatient (CLI) | payer MEDICARE ==
[2020-04-05] VITALS (14 sets, daily range): BP systolic 109–165; BP diastolic 70–89
[~2020-04-05] VITALS: Ht 193 cm; Wt 72.3 kg
[2020-04-05 08:22] LABS: HEMOGLOBIN 12.6 G/DL (13.3-17.7); MEAN PLATELET VOLUME 10.1 FL (7.4-10.4); RED CELL DISTRIBUTION WIDTH 14.1 % (10.0-14.5); WHITE BLOOD COUNT 6.4 10^3/uL (4.3-11.0)
[2020-04-05] MEDS ORDERED: NS IV 1000 ML 1,000 ML IV STA (08:25)
[2020-04-05] MEDS ORDERED: LIDOCAINE 1% INJ 20 ML 20 ML VIAL INJ ONE (08:30)
[2020-04-05] MEDS ORDERED: MIDAZOLAM 2 MG/2 ML (VERSED) VIAL IVP ONE (08:30)
[2020-04-05] MEDS ORDERED: fentaNYL INJECTION 100 MCG/2 ML AMP IVP ONE (08:30)
[2020-04-05 08:35] LABS: INR 1.1 (0.8-1.4); PROTHROMBIN TIME PATIENT 14.6 SEC (12.2-14.7)
--- NOTE | 2020-04-05 09:42 | Pre-Op Note & Conscious Sedat ---
Pre-Operative Progress Note H&P Reviewed The H&P was reviewed, patient examined and no changes noted. Date H&P Reviewed: April 05, 2020 Time H&P Reviewed: 08:00 Pre-Op Diagnosis: Liver mass Conscious Sedation Pre-Proced Time 08:00 ASA Score 2 For ASA 3 and 4: Consider anesthesia and medical clearance. Also, for patients with a history of failed moderate sedation consider anesthesia. Airway Lungs Heart ASA score ASA 1: a normal healthy patient ASA 2: a patient with a mild systemic disease (mid diabetes, controlled hypertension, obesity ASA 3: a patient with a severe systemic disease that limits activity (angina, COPD, prior Myocardial infarction) ASA 4: a patient with an incapacitating disease that is a constant threat to life (CHF, renal failure) ASA 5: a moribund patient not expected to survive 24 hrs. (ruptured aneurysm) ASA 6: a declared brain- patient whose organs are being harvested. For emergent operations, add the letter E after the classification Mallampati Classification Grade 2 Sedation Plan Analgesia, Amnesia, Plan communicated to team members, Discussed options with patient/fam, Discussed risks with patient/fam The patient is an appropriate candidate to undergo the planned procedure, sedation, and anesthesia. The patient immediately re-assessed prior to indication. MITCHEL MEDINA MD April 05, 2020 09:42
[2020-04-05] MEDS ORDERED: HYDROcodone/APAP 5 MG/325 MG (LORTAB) TAB PO PRN (09:45)
--- NOTE | 2020-04-05 09:51 | Diagnostic Imaging Report ---
INDICATION: Liver masses. Patient presents for CT-guided biopsy. TECHNIQUE: The patient was brought to the CT suite and placed on the table in the supine position. Axial imaging through the abdomen was performed to evaluate for an appropriate entry site. The right abdomen was prepped and draped in the usual sterile fashion. The procedure was performed utilizing conscious sedation with Radiology nursing and constant patient monitoring. The patient was administered 50 mcg of fentanyl intravenously and 1 mg of Versed intravenously. The total procedure time was 7 minutes. A small amount of 1% lidocaine was utilized for local anesthesia. An 18-gauge coaxial Temno needle was advanced and placed with its tip along the edge of the low-density mass in the upper right lobe of the liver. Four core biopsies were obtained. The needle was withdrawn during the injection of a blood patch. Followup imaging shows no complicating features. The patient does have trace bilateral pleural effusions. The patient tolerated the procedure well and left the Department in stable condition. IMPRESSION: Successful CT-guided core biopsy of a right lobe liver mass utilizing conscious sedation. Pathology results are currently pending. TECHNIQUE: All CT scans use one or more of the following dose optimizing techniques: automated exposure control, MA and/or KvP adjustment based on a patient size and exam type, or iterative reconstruction. Dictated by: Dictated on workstation # [id number]
[2020-04-05 10:07] LABS: HEMATOCRIT 39 % (40-54); HEMOGLOBIN 12.6 G/DL (13.3-17.7); MEAN CORPUSCULAR HEMOGLOBIN 32 PG (25-34); MEAN CORPUSCULAR HGB CONC 32 G/DL (32-36); MEAN CORPUSCULAR VOLUME 99 FL (80-99); MEAN PLATELET VOLUME 10.1 FL (7.4-10.4); PLATELET COUNT 232 10^3/uL (130-400); RED CELL DISTRIBUTION WIDTH 14.1 % (10.0-14.5); WHITE BLOOD COUNT 6.4 10^3/uL (4.3-11.0)
[2020-04-05 10:09] LABS: BASOPHILS % (AUTO) 1 % (0-10); EOSINOPHILS # (AUTO) 0.1 10^3/uL (0.0-0.3); EOSINOPHILS % (AUTO) 2 % (0-10); LYMPHOCYTES # (AUTO) 1.3 X 10^3 (1.0-4.0); LYMPHOCYTES % (AUTO) 21 % (12-44); MONOCYTES # (AUTO) 0.8 X 10^3 (0.0-1.0); MONOCYTES % (AUTO) 12 % (0-12); NEUTROPHILS # (AUTO) 4.1 X 10^3 (1.8-7.8); NEUTROPHILS % (AUTO) 65 % (42-75)
[2020-04-05 10:43] LABS: ALANINE AMINOTRANSFERASE 34 U/L (0-55); ALBUMIN 3.5 GM/DL (3.2-4.5); ALKALINE PHOSPHATASE 251 U/L (40-136); BUN/CREATININE RATIO 18; CALCIUM 9.6 MG/DL (8.5-10.1); CARBON DIOXIDE 27 MMOL/L (21-32); CHLORIDE 106 MMOL/L (98-107); GFR ESTIMATED > 60; GLUCOSE 150 MG/DL (70-105); POTASSIUM 4.3 MMOL/L (3.6-5.0); SODIUM 141 MMOL/L (135-145); TOTAL PROTEIN 6.4 GM/DL (6.4-8.2)
== END 2020-04-05 11:55 | disposition home or self-care (01) ==
LOC: SDC 07:34 → RAD 11:55
PROVIDERS: ATTEND Internal Medicine Hematology & Oncology
DX: K86.89 Other specified diseases of pancreas (principal); R16.0 Hepatomegaly, not elsewhere classified
CPT/HCPCS: 36415; 77012; 80053; 82378; 85025; 85610; 85730; 86301; 99156

== ENCOUNTER 2020-06-26 13:00 | Outpatient (RCR) | payer MEDICARE ==
[2020-05-01 16:34] LABS: BASOPHILS # (AUTO) 0.1 10^3/uL (0.0-0.1); BASOPHILS % (AUTO) 1 % (0-10); EOSINOPHILS # (AUTO) 0.1 10^3/uL (0.0-0.3); EOSINOPHILS % (AUTO) 1 % (0-10); HEMATOCRIT 43 % (40-54); HEMOGLOBIN 14.4 G/DL (13.3-17.7); LYMPHOCYTES # (AUTO) 1.1 X 10^3 (1.0-4.0); LYMPHOCYTES % (AUTO) 14 % (12-44); MEAN CORPUSCULAR HEMOGLOBIN 32 PG (25-34); MEAN CORPUSCULAR HGB CONC 33 G/DL (32-36); MEAN CORPUSCULAR VOLUME 96 FL (80-99); MEAN PLATELET VOLUME 10.9 FL (7.4-10.4); MONOCYTES # (AUTO) 0.6 X 10^3 (0.0-1.0); MONOCYTES % (AUTO) 7 % (0-12); NEUTROPHILS # (AUTO) 5.9 X 10^3 (1.8-7.8); NEUTROPHILS % (AUTO) 77 % (42-75); PLATELET COUNT 215 10^3/uL (130-400); RED CELL DISTRIBUTION WIDTH 14.2 % (10.0-14.5); WHITE BLOOD COUNT 7.6 10^3/uL (4.3-11.0)
[2020-05-01 17:18] LABS: ALANINE AMINOTRANSFERASE 63 U/L (0-55); ALBUMIN 3.8 GM/DL (3.2-4.5); ALKALINE PHOSPHATASE 413 U/L (40-136); BILIRUBIN,TOTAL 0.9 MG/DL (0.1-1.0); BUN/CREATININE RATIO 28; CARBON DIOXIDE 27 MMOL/L (21-32); CHLORIDE 99 MMOL/L (98-107); CREATININE SERUM 0.81 MG/DL (0.60-1.30); GFR ESTIMATED > 60; GLUCOSE 127 MG/DL (70-105); POTASSIUM 4.7 MMOL/L (3.6-5.0); SODIUM 136 MMOL/L (135-145)
[2020-05-01 17:25] LABS: CALCIUM 13.2 MG/DL (8.5-10.1)
[2020-05-09 12:45] LABS: BASOPHILS % (AUTO) 1 % (0-10); EOSINOPHILS # (AUTO) 0.1 10^3/uL (0.0-0.3); EOSINOPHILS % (AUTO) 2 % (0-10); HEMATOCRIT 43 % (40-54); HEMOGLOBIN 14.4 G/DL (13.3-17.7); LYMPHOCYTES # (AUTO) 1.2 X 10^3 (1.0-4.0); LYMPHOCYTES % (AUTO) 18 % (12-44); MEAN CORPUSCULAR HEMOGLOBIN 32 PG (25-34); MEAN CORPUSCULAR HGB CONC 33 G/DL (32-36); MEAN CORPUSCULAR VOLUME 97 FL (80-99); MEAN PLATELET VOLUME 11.1 FL (7.4-10.4); MONOCYTES # (AUTO) 0.5 X 10^3 (0.0-1.0); MONOCYTES % (AUTO) 8 % (0-12); NEUTROPHILS # (AUTO) 4.9 X 10^3 (1.8-7.8); NEUTROPHILS % (AUTO) 73 % (42-75); PLATELET COUNT 173 10^3/uL (130-400); RED CELL DISTRIBUTION WIDTH 14.6 % (10.0-14.5); WHITE BLOOD COUNT 6.8 10^3/uL (4.3-11.0)
[2020-05-09 13:03] LABS: INR 2.7 (0.8-1.4); PROTHROMBIN TIME PATIENT 29.2 SEC (12.2-14.7)
[2020-05-09 13:06] LABS: ALANINE AMINOTRANSFERASE 77 U/L (0-55); ALBUMIN 3.9 GM/DL (3.2-4.5); ALKALINE PHOSPHATASE 513 U/L (40-136); BILIRUBIN,TOTAL 0.7 MG/DL (0.1-1.0); BUN/CREATININE RATIO 23; CALCIUM 12.5 MG/DL (8.5-10.1); CARBON DIOXIDE 29 MMOL/L (21-32); CHLORIDE 99 MMOL/L (98-107); CREATININE SERUM 0.93 MG/DL (0.60-1.30); GFR ESTIMATED > 60; GLUCOSE 134 MG/DL (70-105); MAGNESIUM 2.3 MG/DL (1.6-2.4); POTASSIUM 4.5 MMOL/L (3.6-5.0); SODIUM 139 MMOL/L (135-145); TOTAL PROTEIN 7.1 GM/DL (6.4-8.2)
[2020-05-17 12:08] LABS: BASOPHILS # (AUTO) 0.1 10^3/uL (0.0-0.1); BASOPHILS % (AUTO) 1 % (0-10); EOSINOPHILS # (AUTO) 0.1 10^3/uL (0.0-0.3); EOSINOPHILS % (AUTO) 2 % (0-10); HEMATOCRIT 42 % (40-54); LYMPHOCYTES # (AUTO) 1.3 X 10^3 (1.0-4.0); LYMPHOCYTES % (AUTO) 22 % (12-44); MEAN CORPUSCULAR HEMOGLOBIN 32 PG (25-34); MEAN CORPUSCULAR HGB CONC 33 G/DL (32-36); MEAN CORPUSCULAR VOLUME 96 FL (80-99); MEAN PLATELET VOLUME 11.1 FL (7.4-10.4); MONOCYTES # (AUTO) 0.2 X 10^3 (0.0-1.0); MONOCYTES % (AUTO) 4 % (0-12); NEUTROPHILS # (AUTO) 4.2 X 10^3 (1.8-7.8); NEUTROPHILS % (AUTO) 71 % (42-75); PLATELET COUNT 193 10^3/uL (130-400); RED CELL DISTRIBUTION WIDTH 14.9 % (10.0-14.5)
[2020-05-17 12:29] LABS: ALANINE AMINOTRANSFERASE 67 U/L (0-55); ALBUMIN 3.6 GM/DL (3.2-4.5); ALKALINE PHOSPHATASE 389 U/L (40-136); BILIRUBIN,TOTAL 1.1 MG/DL (0.1-1.0); BUN/CREATININE RATIO 22; CALCIUM 12.1 MG/DL (8.5-10.1); CARBON DIOXIDE 23 MMOL/L (21-32); CHLORIDE 100 MMOL/L (98-107); CREATININE SERUM 0.89 MG/DL (0.60-1.30); GFR ESTIMATED > 60; GLUCOSE 213 MG/DL (70-105); POTASSIUM 4.5 MMOL/L (3.6-5.0); SODIUM 136 MMOL/L (135-145); TOTAL PROTEIN 6.5 GM/DL (6.4-8.2)
[2020-05-22 14:03] LABS: BASOPHILS % (AUTO) 1 % (0-10); EOSINOPHILS # (AUTO) 0.1 10^3/uL (0.0-0.3); EOSINOPHILS % (AUTO) 2 % (0-10); HEMATOCRIT 42 % (40-54); HEMOGLOBIN 13.8 G/DL (13.3-17.7); LYMPHOCYTES # (AUTO) 1.2 X 10^3 (1.0-4.0); LYMPHOCYTES % (AUTO) 25 % (12-44); MEAN CORPUSCULAR HEMOGLOBIN 32 PG (25-34); MEAN CORPUSCULAR HGB CONC 33 G/DL (32-36); MEAN CORPUSCULAR VOLUME 98 FL (80-99); MEAN PLATELET VOLUME 10.3 FL (7.4-10.4); MONOCYTES # (AUTO) 0.2 X 10^3 (0.0-1.0); MONOCYTES % (AUTO) 5 % (0-12); NEUTROPHILS # (AUTO) 3.2 X 10^3 (1.8-7.8); NEUTROPHILS % (AUTO) 67 % (42-75); PLATELET COUNT 164 10^3/uL (130-400); WHITE BLOOD COUNT 4.8 10^3/uL (4.3-11.0)
[2020-05-22 14:34] LABS: ALANINE AMINOTRANSFERASE 51 U/L (0-55); ALBUMIN 3.6 GM/DL (3.2-4.5); ALKALINE PHOSPHATASE 359 U/L (40-136); BUN/CREATININE RATIO 21; CALCIUM 11.6 MG/DL (8.5-10.1); CARBON DIOXIDE 27 MMOL/L (21-32); CHLORIDE 98 MMOL/L (98-107); CREATININE SERUM 0.95 MG/DL (0.60-1.30); GFR ESTIMATED > 60; GLUCOSE 241 MG/DL (70-105); POTASSIUM 4.8 MMOL/L (3.6-5.0); SODIUM 136 MMOL/L (135-145); TOTAL PROTEIN 6.4 GM/DL (6.4-8.2)
[2020-05-22 15:07] LABS: BILIRUBIN,URINE NEGATIVE (NEGATIVE); CLARITY,URINE CLEAR; COLOR,URINE YELLOW; GLUCOSE, URINE (UA) NEGATIVE (NEGATIVE); KETONES,URINE NEGATIVE (NEGATIVE); LEUKOCYTE ESTERASE ,URINE NEGATIVE (NEGATIVE); NITRITE,URINE NEGATIVE (NEGATIVE); PROTEIN,URINE NEGATIVE (NEGATIVE)
[2020-05-22 15:17] LABS: RBC,URINE 0-2 /HPF; WBC,URINE 0-2 /HPF
[2020-05-22 15:18] LABS: AMORPHOUS SEDIMENT,UR RARE AMOR URATES /LPF; BACTERIA,URINE NEGATIVE /HPF
[2020-05-31 15:38] LABS: BASOPHILS % (AUTO) 1 % (0-10); EOSINOPHILS # (AUTO) 0.2 10^3/uL (0.0-0.3); EOSINOPHILS % (AUTO) 6 % (0-10); HEMATOCRIT 41 % (40-54); HEMOGLOBIN 13.5 G/DL (13.3-17.7); LYMPHOCYTES % (AUTO) 26 % (12-44); MEAN CORPUSCULAR HEMOGLOBIN 33 PG (25-34); MEAN CORPUSCULAR HGB CONC 33 G/DL (32-36); MEAN CORPUSCULAR VOLUME 100 FL (80-99); MONOCYTES # (AUTO) 0.5 X 10^3 (0.0-1.0); MONOCYTES % (AUTO) 12 % (0-12); NEUTROPHILS # (AUTO) 2.2 X 10^3 (1.8-7.8); NEUTROPHILS % (AUTO) 56 % (42-75); PLATELET COUNT 161 10^3/uL (130-400); WHITE BLOOD COUNT 3.9 10^3/uL (4.3-11.0)
[2020-05-31 15:54] LABS: ALBUMIN 3.8 GM/DL (3.2-4.5); CHLORIDE 101 MMOL/L (98-107); POTASSIUM 4.5 MMOL/L (3.6-5.0); SODIUM 140 MMOL/L (135-145)
[2020-05-31 15:56] LABS: CALCIUM 11.2 MG/DL (8.5-10.1)
[2020-05-31 15:57] LABS: GLUCOSE 210 MG/DL (70-105); TOTAL PROTEIN 6.7 GM/DL (6.4-8.2)
[2020-05-31 15:58] LABS: CARBON DIOXIDE 28 MMOL/L (21-32)
[2020-05-31 15:59] LABS: BILIRUBIN,TOTAL 0.9 MG/DL (0.1-1.0)
[2020-05-31 16:00] LABS: ALKALINE PHOSPHATASE 302 U/L (40-136); CREATININE SERUM 0.97 MG/DL (0.60-1.30); GFR ESTIMATED > 60
[2020-05-31 16:01] LABS: BUN/CREATININE RATIO 25
[2020-05-31 16:03] LABS: ALANINE AMINOTRANSFERASE 41 U/L (0-55)
[2020-06-13 13:35] LABS: BASOPHILS % (AUTO) 0 % (0-10); EOSINOPHILS # (AUTO) 0.2 10^3/uL (0.0-0.3); EOSINOPHILS % (AUTO) 4 % (0-10); HEMATOCRIT 37 % (40-54); HEMOGLOBIN 12.2 G/DL (13.3-17.7); LYMPHOCYTES # (AUTO) 1.4 X 10^3 (1.0-4.0); LYMPHOCYTES % (AUTO) 32 % (12-44); MEAN CORPUSCULAR HEMOGLOBIN 33 PG (25-34); MEAN CORPUSCULAR HGB CONC 33 G/DL (32-36); MEAN CORPUSCULAR VOLUME 101 FL (80-99); MEAN PLATELET VOLUME 10.8 FL (7.4-10.4); MONOCYTES # (AUTO) 0.3 X 10^3 (0.0-1.0); MONOCYTES % (AUTO) 8 % (0-12); NEUTROPHILS # (AUTO) 2.5 X 10^3 (1.8-7.8); NEUTROPHILS % (AUTO) 57 % (42-75); RED CELL DISTRIBUTION WIDTH 18.4 % (10.0-14.5); WHITE BLOOD COUNT 4.4 10^3/uL (4.3-11.0)
[2020-06-13 13:38] LABS: PLATELET COUNT 37 10^3/uL (130-400)
[2020-06-13 13:57] LABS: ALANINE AMINOTRANSFERASE 32 U/L (0-55); ALBUMIN 3.7 GM/DL (3.2-4.5); ALKALINE PHOSPHATASE 228 U/L (40-136); BILIRUBIN,TOTAL 0.7 MG/DL (0.1-1.0); BUN/CREATININE RATIO 28; CALCIUM 9.2 MG/DL (8.5-10.1); CARBON DIOXIDE 29 MMOL/L (21-32); CHLORIDE 103 MMOL/L (98-107); CREATININE SERUM 0.81 MG/DL (0.60-1.30); GFR ESTIMATED > 60; GLUCOSE 184 MG/DL (70-105); MAGNESIUM 2.1 MG/DL (1.6-2.4); POTASSIUM 5.1 MMOL/L (3.6-5.0); SODIUM 140 MMOL/L (135-145); TOTAL PROTEIN 6.4 GM/DL (6.4-8.2)
[2020-06-19 13:05] LABS: BASOPHILS % (AUTO) 0 % (0-10); EOSINOPHILS # (AUTO) 0.1 10^3/uL (0.0-0.3); EOSINOPHILS % (AUTO) 3 % (0-10); HEMATOCRIT 36 % (40-54); HEMOGLOBIN 11.9 G/DL (13.3-17.7); LYMPHOCYTES # (AUTO) 1.2 X 10^3 (1.0-4.0); LYMPHOCYTES % (AUTO) 28 % (12-44); MEAN CORPUSCULAR HEMOGLOBIN 33 PG (25-34); MEAN CORPUSCULAR HGB CONC 34 G/DL (32-36); MEAN CORPUSCULAR VOLUME 100 FL (80-99); MEAN PLATELET VOLUME 10.3 FL (7.4-10.4); MONOCYTES # (AUTO) 0.3 X 10^3 (0.0-1.0); MONOCYTES % (AUTO) 7 % (0-12); NEUTROPHILS # (AUTO) 2.7 X 10^3 (1.8-7.8); NEUTROPHILS % (AUTO) 62 % (42-75); PLATELET COUNT 119 10^3/uL (130-400); WHITE BLOOD COUNT 4.3 10^3/uL (4.3-11.0)
[~2020-06-26 13:00] MED LIST changes: +ETOPOSIDE 160 MG in NORMAL SALINE (CANCER CENTER) 500 ML IV SCH; +FOSAPREPITANT (CANCER CENTER) 150 MG in NS (IVPB) CANCER CENTER ONLY 150 ML IV SCH; +NS IV 1000 ML (CANCER CTR) 1,000 ML ONE; +NS IV 1000 ML (CANCER CTR) IV SCH; +NS IV ONE; +NS IV SCH; +OCTREOTIDE LAR 20 MG DISP.SYRIN IM SCH; +PAMIDRONATE IV ONE; +PAMIDRONATE IV SCH
[2020-06-26 13:24] LABS: BASOPHILS % (AUTO) 1 % (0-10); EOSINOPHILS # (AUTO) 0.1 10^3/uL (0.0-0.3); EOSINOPHILS % (AUTO) 2 % (0-10); HEMATOCRIT 38 % (40-54); HEMOGLOBIN 12.5 G/DL (13.3-17.7); LYMPHOCYTES # (AUTO) 1.2 X 10^3 (1.0-4.0); LYMPHOCYTES % (AUTO) 32 % (12-44); MEAN CORPUSCULAR HEMOGLOBIN 33 PG (25-34); MEAN CORPUSCULAR HGB CONC 33 G/DL (32-36); MEAN CORPUSCULAR VOLUME 101 FL (80-99); MONOCYTES # (AUTO) 0.3 X 10^3 (0.0-1.0); MONOCYTES % (AUTO) 9 % (0-12); NEUTROPHILS # (AUTO) 2.2 X 10^3 (1.8-7.8); NEUTROPHILS % (AUTO) 57 % (42-75); PLATELET COUNT 190 10^3/uL (130-400); RED CELL DISTRIBUTION WIDTH 18.8 % (10.0-14.5); WHITE BLOOD COUNT 3.8 10^3/uL (4.3-11.0)
[2020-06-26 13:42] LABS: ALANINE AMINOTRANSFERASE 32 U/L (0-55); ALKALINE PHOSPHATASE 189 U/L (40-136); BILIRUBIN,TOTAL 0.7 MG/DL (0.1-1.0); BUN/CREATININE RATIO 34; CALCIUM 9.9 MG/DL (8.5-10.1); CARBON DIOXIDE 32 MMOL/L (21-32); CHLORIDE 104 MMOL/L (98-107); CREATININE SERUM 0.89 MG/DL (0.60-1.30); GFR ESTIMATED > 60; GLUCOSE 164 MG/DL (70-105); SODIUM 140 MMOL/L (135-145); TOTAL PROTEIN 6.7 GM/DL (6.4-8.2)
== END 2020-06-29 | disposition home or self-care (01) ==
LOC: ONC 13:00
PROVIDERS: ATTEND Internal Medicine Hematology & Oncology
DX: K86.89 Other specified diseases of pancreas (principal); E83.52 Hypercalcemia
CPT/HCPCS: 36415; 80053; 81000; 83615; 83735; 85025; 85610; 86316; 96360; 96361; 96365; 96366; 96372; 99213

== ENCOUNTER 2020-09-26 09:17 | Outpatient (RCR) | payer MEDICARE ==
[2020-07-03 13:45] LABS: BASOPHILS % (AUTO) 1 % (0-10); EOSINOPHILS # (AUTO) 0.1 10^3/uL (0.0-0.3); EOSINOPHILS % (AUTO) 1 % (0-10); HEMATOCRIT 37 % (40-54); HEMOGLOBIN 12.3 G/DL (13.3-17.7); LYMPHOCYTES # (AUTO) 1.3 X 10^3 (1.0-4.0); LYMPHOCYTES % (AUTO) 38 % (12-44); MEAN CORPUSCULAR HEMOGLOBIN 34 PG (25-34); MEAN CORPUSCULAR HGB CONC 33 G/DL (32-36); MEAN CORPUSCULAR VOLUME 101 FL (80-99); MEAN PLATELET VOLUME 10.2 FL (7.4-10.4); MONOCYTES # (AUTO) 0.3 X 10^3 (0.0-1.0); MONOCYTES % (AUTO) 7 % (0-12); NEUTROPHILS # (AUTO) 1.9 X 10^3 (1.8-7.8); NEUTROPHILS % (AUTO) 53 % (42-75); PLATELET COUNT 143 10^3/uL (130-400); WHITE BLOOD COUNT 3.5 10^3/uL (4.3-11.0)
[2020-07-03 14:03] LABS: ALANINE AMINOTRANSFERASE 27 U/L (0-55); ALBUMIN 3.9 GM/DL (3.2-4.5); ALKALINE PHOSPHATASE 167 U/L (40-136); BILIRUBIN,TOTAL 0.8 MG/DL (0.1-1.0); BUN/CREATININE RATIO 28; CALCIUM 9.4 MG/DL (8.5-10.1); CARBON DIOXIDE 28 MMOL/L (21-32); CHLORIDE 102 MMOL/L (98-107); CREATININE SERUM 0.92 MG/DL (0.60-1.30); GFR ESTIMATED > 60; GLUCOSE 174 MG/DL (70-105); POTASSIUM 4.5 MMOL/L (3.6-5.0); SODIUM 138 MMOL/L (135-145); TOTAL PROTEIN 6.7 GM/DL (6.4-8.2)
[2020-07-07 13:26] LABS: BASOPHILS % (AUTO) 1 % (0-10); EOSINOPHILS % (AUTO) 1 % (0-10); HEMATOCRIT 38 % (40-54); HEMOGLOBIN 12.9 G/DL (13.3-17.7); LYMPHOCYTES # (AUTO) 1.2 X 10^3 (1.0-4.0); LYMPHOCYTES % (AUTO) 32 % (12-44); MEAN CORPUSCULAR HEMOGLOBIN 34 PG (25-34); MEAN CORPUSCULAR HGB CONC 34 G/DL (32-36); MEAN CORPUSCULAR VOLUME 101 FL (80-99); MONOCYTES # (AUTO) 0.2 X 10^3 (0.0-1.0); MONOCYTES % (AUTO) 6 % (0-12); NEUTROPHILS # (AUTO) 2.2 X 10^3 (1.8-7.8); NEUTROPHILS % (AUTO) 61 % (42-75); PLATELET COUNT 110 10^3/uL (130-400); WHITE BLOOD COUNT 3.6 10^3/uL (4.3-11.0)
[2020-07-07 13:44] LABS: ALANINE AMINOTRANSFERASE 27 U/L (0-55); ALBUMIN 4.2 GM/DL (3.2-4.5); ALKALINE PHOSPHATASE 167 U/L (40-136); BILIRUBIN,TOTAL 0.9 MG/DL (0.1-1.0); BUN/CREATININE RATIO 27; CALCIUM 9.9 MG/DL (8.5-10.1); CARBON DIOXIDE 30 MMOL/L (21-32); CHLORIDE 100 MMOL/L (98-107); CREATININE SERUM 0.89 MG/DL (0.60-1.30); GFR ESTIMATED > 60; GLUCOSE 217 MG/DL (70-105); POTASSIUM 4.6 MMOL/L (3.6-5.0); SODIUM 138 MMOL/L (135-145); TOTAL PROTEIN 6.9 GM/DL (6.4-8.2)
[2020-07-11 14:28] LABS: BASOPHILS % (AUTO) 1 % (0-10); EOSINOPHILS # (AUTO) 0.1 10^3/uL (0.0-0.3); EOSINOPHILS % (AUTO) 2 % (0-10); HEMATOCRIT 36 % (40-54); HEMOGLOBIN 12.3 G/DL (13.3-17.7); LYMPHOCYTES # (AUTO) 1.3 X 10^3 (1.0-4.0); LYMPHOCYTES % (AUTO) 35 % (12-44); MEAN CORPUSCULAR HEMOGLOBIN 35 PG (25-34); MEAN CORPUSCULAR HGB CONC 34 G/DL (32-36); MEAN CORPUSCULAR VOLUME 102 FL (80-99); MEAN PLATELET VOLUME 10.6 FL (7.4-10.4); MONOCYTES # (AUTO) 0.4 X 10^3 (0.0-1.0); MONOCYTES % (AUTO) 10 % (0-12); NEUTROPHILS % (AUTO) 53 % (42-75); PLATELET COUNT 111 10^3/uL (130-400); WHITE BLOOD COUNT 3.8 10^3/uL (4.3-11.0)
[2020-07-11 14:45] LABS: ALANINE AMINOTRANSFERASE 26 U/L (0-55); ALBUMIN 3.9 GM/DL (3.2-4.5); ALKALINE PHOSPHATASE 138 U/L (40-136); BILIRUBIN,TOTAL 1.1 MG/DL (0.1-1.0); BUN/CREATININE RATIO 31; CALCIUM 9.7 MG/DL (8.5-10.1); CARBON DIOXIDE 28 MMOL/L (21-32); CHLORIDE 103 MMOL/L (98-107); CREATININE SERUM 0.83 MG/DL (0.60-1.30); GFR ESTIMATED > 60; GLUCOSE 147 MG/DL (70-105); POTASSIUM 4.6 MMOL/L (3.6-5.0); SODIUM 138 MMOL/L (135-145); TOTAL PROTEIN 6.5 GM/DL (6.4-8.2)
[2020-07-18 11:53] LABS: BASOPHILS % (AUTO) 0 % (0-10); EOSINOPHILS # (AUTO) 0.1 10^3/uL (0.0-0.3); EOSINOPHILS % (AUTO) 4 % (0-10); HEMATOCRIT 36 % (40-54); HEMOGLOBIN 11.8 G/DL (13.3-17.7); LYMPHOCYTES # (AUTO) 1.3 X 10^3 (1.0-4.0); LYMPHOCYTES % (AUTO) 38 % (12-44); MEAN CORPUSCULAR HEMOGLOBIN 34 PG (25-34); MEAN CORPUSCULAR HGB CONC 33 G/DL (32-36); MEAN CORPUSCULAR VOLUME 104 FL (80-99); MEAN PLATELET VOLUME 10.1 FL (7.4-10.4); MONOCYTES # (AUTO) 0.4 X 10^3 (0.0-1.0); MONOCYTES % (AUTO) 13 % (0-12); NEUTROPHILS # (AUTO) 1.5 X 10^3 (1.8-7.8); NEUTROPHILS % (AUTO) 45 % (42-75); PLATELET COUNT 118 10^3/uL (130-400); WHITE BLOOD COUNT 3.3 10^3/uL (4.3-11.0)
[2020-07-18 12:17] LABS: ALANINE AMINOTRANSFERASE 24 U/L (0-55); ALBUMIN 3.8 GM/DL (3.2-4.5); ALKALINE PHOSPHATASE 148 U/L (40-136); BUN/CREATININE RATIO 25; CALCIUM 9.1 MG/DL (8.5-10.1); CARBON DIOXIDE 26 MMOL/L (21-32); CHLORIDE 104 MMOL/L (98-107); CREATININE SERUM 0.96 MG/DL (0.60-1.30); GFR ESTIMATED > 60; GLUCOSE 216 MG/DL (70-105); POTASSIUM 4.2 MMOL/L (3.6-5.0); SODIUM 138 MMOL/L (135-145); TOTAL PROTEIN 6.3 GM/DL (6.4-8.2)
[2020-07-25 14:12] LABS: BASOPHILS % (AUTO) 0 % (0-10); EOSINOPHILS # (AUTO) 0.1 10^3/uL (0.0-0.3); EOSINOPHILS % (AUTO) 2 % (0-10); HEMATOCRIT 36 % (40-54); HEMOGLOBIN 12.1 G/DL (13.3-17.7); LYMPHOCYTES # (AUTO) 1.4 X 10^3 (1.0-4.0); LYMPHOCYTES % (AUTO) 44 % (12-44); MEAN CORPUSCULAR HEMOGLOBIN 35 PG (25-34); MEAN CORPUSCULAR HGB CONC 34 G/DL (32-36); MEAN CORPUSCULAR VOLUME 103 FL (80-99); MEAN PLATELET VOLUME 10.3 FL (7.4-10.4); MONOCYTES # (AUTO) 0.3 X 10^3 (0.0-1.0); MONOCYTES % (AUTO) 10 % (0-12); NEUTROPHILS # (AUTO) 1.5 X 10^3 (1.8-7.8); NEUTROPHILS % (AUTO) 45 % (42-75); PLATELET COUNT 79 10^3/uL (130-400); WHITE BLOOD COUNT 3.3 10^3/uL (4.3-11.0)
[2020-08-01 14:02] LABS: BASOPHILS % (AUTO) 1 % (0-10); EOSINOPHILS # (AUTO) 0.1 10^3/uL (0.0-0.3); EOSINOPHILS % (AUTO) 2 % (0-10); HEMATOCRIT 35 % (40-54); HEMOGLOBIN 11.6 g/dL (13.3-17.7); LYMPHOCYTES # (AUTO) 1.2 10^3/uL (1.0-4.0); LYMPHOCYTES % (AUTO) 30 % (12-44); MEAN CORPUSCULAR HEMOGLOBIN 35 pg (25-34); MEAN CORPUSCULAR HGB CONC 33 g/dL (32-36); MEAN CORPUSCULAR VOLUME 106 fL (80-99); MEAN PLATELET VOLUME 10.6 fL (9.0-12.2); MONOCYTES # (AUTO) 0.3 10^3/uL (0.0-1.0); MONOCYTES % (AUTO) 6 % (0-12); NEUTROPHILS # (AUTO) 2.5 10^3/uL (1.8-7.8); NEUTROPHILS % (AUTO) 61 % (42-75); PLATELET COUNT 87 10^3/uL (130-400); WHITE BLOOD COUNT 4.1 10^3/uL (4.3-11.0)
[2020-08-08 13:28] LABS: BASOPHILS % (AUTO) 1 % (0-10); EOSINOPHILS # (AUTO) 0.1 10^3/uL (0.0-0.3); EOSINOPHILS % (AUTO) 2 % (0-10); HEMATOCRIT 37 % (40-54); HEMOGLOBIN 12.2 g/dL (13.3-17.7); LYMPHOCYTES # (AUTO) 1.2 10^3/uL (1.0-4.0); LYMPHOCYTES % (AUTO) 37 % (12-44); MEAN CORPUSCULAR HEMOGLOBIN 36 pg (25-34); MEAN CORPUSCULAR HGB CONC 33 g/dL (32-36); MEAN CORPUSCULAR VOLUME 107 fL (80-99); MEAN PLATELET VOLUME 9.2 fL (9.0-12.2); MONOCYTES # (AUTO) 0.4 10^3/uL (0.0-1.0); MONOCYTES % (AUTO) 11 % (0-12); NEUTROPHILS # (AUTO) 1.6 10^3/uL (1.8-7.8); NEUTROPHILS % (AUTO) 49 % (42-75); PLATELET COUNT 94 10^3/uL (130-400); WHITE BLOOD COUNT 3.2 10^3/uL (4.3-11.0)
[2020-08-11 11:34] LABS: BASOPHILS % (AUTO) 1 % (0-10); EOSINOPHILS # (AUTO) 0.2 10^3/uL (0.0-0.3); EOSINOPHILS % (AUTO) 5 % (0-10); HEMATOCRIT 38 % (40-54); HEMOGLOBIN 12.7 g/dL (13.3-17.7); LYMPHOCYTES # (AUTO) 1.1 10^3/uL (1.0-4.0); LYMPHOCYTES % (AUTO) 36 % (12-44); MEAN CORPUSCULAR HEMOGLOBIN 36 pg (25-34); MEAN CORPUSCULAR HGB CONC 34 g/dL (32-36); MEAN CORPUSCULAR VOLUME 107 fL (80-99); MONOCYTES # (AUTO) 0.3 10^3/uL (0.0-1.0); MONOCYTES % (AUTO) 11 % (0-12); NEUTROPHILS # (AUTO) 1.4 10^3/uL (1.8-7.8); NEUTROPHILS % (AUTO) 46 % (42-75); PLATELET COUNT 121 10^3/uL (130-400)
[2020-08-11 11:57] LABS: ALANINE AMINOTRANSFERASE 26 U/L (0-55); ALBUMIN 4.2 GM/DL (3.2-4.5); ALKALINE PHOSPHATASE 127 U/L (40-136); BILIRUBIN,TOTAL 1.6 MG/DL (0.1-1.0); BUN/CREATININE RATIO 29; CALCIUM 9.3 MG/DL (8.5-10.1); CARBON DIOXIDE 22 MMOL/L (21-32); CHLORIDE 105 MMOL/L (98-107); GFR ESTIMATED > 60; GLUCOSE 187 MG/DL (70-105); POTASSIUM 5.3 MMOL/L (3.6-5.0); SODIUM 139 MMOL/L (135-145); TOTAL PROTEIN 6.9 GM/DL (6.4-8.2)
[2020-08-15 13:15] LABS: BASOPHILS % (AUTO) 0 % (0-10); EOSINOPHILS # (AUTO) 0.2 10^3/uL (0.0-0.3); EOSINOPHILS % (AUTO) 5 % (0-10); HEMATOCRIT 36 % (40-54); HEMOGLOBIN 12.1 g/dL (13.3-17.7); LYMPHOCYTES # (AUTO) 1.3 10^3/uL (1.0-4.0); LYMPHOCYTES % (AUTO) 37 % (12-44); MEAN CORPUSCULAR HEMOGLOBIN 36 pg (25-34); MEAN CORPUSCULAR HGB CONC 34 g/dL (32-36); MEAN CORPUSCULAR VOLUME 108 fL (80-99); MEAN PLATELET VOLUME 10.5 fL (9.0-12.2); MONOCYTES # (AUTO) 0.4 10^3/uL (0.0-1.0); MONOCYTES % (AUTO) 10 % (0-12); NEUTROPHILS # (AUTO) 1.6 10^3/uL (1.8-7.8); NEUTROPHILS % (AUTO) 47 % (42-75); PLATELET COUNT 107 10^3/uL (130-400); WHITE BLOOD COUNT 3.4 10^3/uL (4.3-11.0)
[2020-08-29 14:34] LABS: BASOPHILS % (AUTO) 1 % (0-10); EOSINOPHILS # (AUTO) 0.1 10^3/uL (0.0-0.3); EOSINOPHILS % (AUTO) 1 % (0-10); HEMATOCRIT 36 % (40-54); HEMOGLOBIN 12.3 g/dL (13.3-17.7); LYMPHOCYTES # (AUTO) 1.3 10^3/uL (1.0-4.0); LYMPHOCYTES % (AUTO) 32 % (12-44); MEAN CORPUSCULAR HEMOGLOBIN 38 pg (25-34); MEAN CORPUSCULAR HGB CONC 34 g/dL (32-36); MEAN CORPUSCULAR VOLUME 110 fL (80-99); MEAN PLATELET VOLUME 10.4 fL (9.0-12.2); MONOCYTES # (AUTO) 0.3 10^3/uL (0.0-1.0); MONOCYTES % (AUTO) 7 % (0-12); NEUTROPHILS # (AUTO) 2.4 10^3/uL (1.8-7.8); NEUTROPHILS % (AUTO) 59 % (42-75); PLATELET COUNT 89 10^3/uL (130-400)
[2020-09-06 12:04] LABS: BASOPHILS % (AUTO) 1 % (0-10); EOSINOPHILS # (AUTO) 0.1 10^3/uL (0.0-0.3); EOSINOPHILS % (AUTO) 3 % (0-10); HEMATOCRIT 36 % (40-54); HEMOGLOBIN 12.2 g/dL (13.3-17.7); LYMPHOCYTES # (AUTO) 1.2 10^3/uL (1.0-4.0); LYMPHOCYTES % (AUTO) 34 % (12-44); MEAN CORPUSCULAR HEMOGLOBIN 38 pg (25-34); MEAN CORPUSCULAR HGB CONC 34 g/dL (32-36); MEAN CORPUSCULAR VOLUME 113 fL (80-99); MEAN PLATELET VOLUME 10.6 fL (9.0-12.2); MONOCYTES # (AUTO) 0.3 10^3/uL (0.0-1.0); MONOCYTES % (AUTO) 10 % (0-12); NEUTROPHILS # (AUTO) 1.8 10^3/uL (1.8-7.8); NEUTROPHILS % (AUTO) 53 % (42-75); PLATELET COUNT 109 10^3/uL (130-400); WHITE BLOOD COUNT 3.5 10^3/uL (4.3-11.0)
[2020-09-06 12:27] LABS: ALANINE AMINOTRANSFERASE 19 U/L (0-55); ALBUMIN 4.2 GM/DL (3.2-4.5); ALKALINE PHOSPHATASE 89 U/L (40-136); BILIRUBIN,TOTAL 1.8 MG/DL (0.1-1.0); BUN/CREATININE RATIO 21; CALCIUM 9.7 MG/DL (8.5-10.1); CARBON DIOXIDE 29 MMOL/L (21-32); CHLORIDE 101 MMOL/L (98-107); CREATININE SERUM 1.05 MG/DL (0.60-1.30); GFR ESTIMATED > 60; GLUCOSE 228 MG/DL (70-105); POTASSIUM 4.6 MMOL/L (3.6-5.0); SODIUM 139 MMOL/L (135-145); TOTAL PROTEIN 6.8 GM/DL (6.4-8.2)
[2020-09-14 10:46] LABS: BASOPHILS % (AUTO) 1 % (0-10); EOSINOPHILS # (AUTO) 0.1 10^3/uL (0.0-0.3); EOSINOPHILS % (AUTO) 4 % (0-10); HEMATOCRIT 35 % (40-54); HEMOGLOBIN 11.8 g/dL (13.3-17.7); LYMPHOCYTES # (AUTO) 1.2 10^3/uL (1.0-4.0); LYMPHOCYTES % (AUTO) 36 % (12-44); MEAN CORPUSCULAR HEMOGLOBIN 38 pg (25-34); MEAN CORPUSCULAR HGB CONC 34 g/dL (32-36); MEAN CORPUSCULAR VOLUME 114 fL (80-99); MEAN PLATELET VOLUME 10.4 fL (9.0-12.2); MONOCYTES # (AUTO) 0.3 10^3/uL (0.0-1.0); MONOCYTES % (AUTO) 9 % (0-12); NEUTROPHILS # (AUTO) 1.6 10^3/uL (1.8-7.8); NEUTROPHILS % (AUTO) 50 % (42-75); PLATELET COUNT 88 10^3/uL (130-400); WHITE BLOOD COUNT 3.2 10^3/uL (4.3-11.0)
[2020-09-19 13:45] LABS: BASOPHILS % (AUTO) 1 % (0-10); EOSINOPHILS # (AUTO) 0.1 10^3/uL (0.0-0.3); EOSINOPHILS % (AUTO) 2 % (0-10); HEMATOCRIT 35 % (40-54); HEMOGLOBIN 11.7 g/dL (13.3-17.7); LYMPHOCYTES # (AUTO) 1.2 10^3/uL (1.0-4.0); LYMPHOCYTES % (AUTO) 34 % (12-44); MEAN CORPUSCULAR HEMOGLOBIN 38 pg (25-34); MEAN CORPUSCULAR HGB CONC 34 g/dL (32-36); MEAN CORPUSCULAR VOLUME 114 fL (80-99); MEAN PLATELET VOLUME 10.8 fL (9.0-12.2); MONOCYTES # (AUTO) 0.4 10^3/uL (0.0-1.0); MONOCYTES % (AUTO) 10 % (0-12); NEUTROPHILS # (AUTO) 1.8 10^3/uL (1.8-7.8); NEUTROPHILS % (AUTO) 52 % (42-75); PLATELET COUNT 65 10^3/uL (130-400); WHITE BLOOD COUNT 3.5 10^3/uL (4.3-11.0)
[2020-09-19 14:02] LABS: BUN/CREATININE RATIO 24; CALCIUM 9.1 MG/DL (8.5-10.1); CARBON DIOXIDE 27 MMOL/L (21-32); CHLORIDE 105 MMOL/L (98-107); CREATININE SERUM 0.92 MG/DL (0.60-1.30); GFR ESTIMATED > 60; GLUCOSE 166 MG/DL (70-105); POTASSIUM 4.5 MMOL/L (3.6-5.0); SODIUM 139 MMOL/L (135-145)
[~2020-09-26 09:17] MED LIST changes: +ASPI-1238 PO; -ASPI-983 PO; -ETOPOSIDE 160 MG in NORMAL SALINE (CANCER CENTER) 500 ML IV SCH; -FOSAPREPITANT (CANCER CENTER) 150 MG in NS (IVPB) CANCER CENTER ONLY 150 ML IV SCH; -NS IV 1000 ML (CANCER CTR) 1,000 ML ONE; -NS IV 1000 ML (CANCER CTR) IV SCH; -NS IV ONE; -NS IV SCH; -PAMIDRONATE IV ONE; -PAMIDRONATE IV SCH; +ZOLEDRONIC ACID (CANCER CTR) 4 MG in NS (IVPB) CANCER CENTER 100 ML IV SCH
[2020-09-26 09:38] LABS: BASOPHILS % (AUTO) 1 % (0-10); EOSINOPHILS # (AUTO) 0.1 10^3/uL (0.0-0.3); EOSINOPHILS % (AUTO) 2 % (0-10); HEMATOCRIT 39 % (40-54); HEMOGLOBIN 12.8 g/dL (13.3-17.7); LYMPHOCYTES # (AUTO) 1.3 10^3/uL (1.0-4.0); LYMPHOCYTES % (AUTO) 28 % (12-44); MEAN CORPUSCULAR HEMOGLOBIN 38 pg (25-34); MEAN CORPUSCULAR HGB CONC 33 g/dL (32-36); MEAN CORPUSCULAR VOLUME 114 fL (80-99); MEAN PLATELET VOLUME 11.1 fL (9.0-12.2); MONOCYTES # (AUTO) 0.4 10^3/uL (0.0-1.0); MONOCYTES % (AUTO) 8 % (0-12); NEUTROPHILS # (AUTO) 2.8 10^3/uL (1.8-7.8); NEUTROPHILS % (AUTO) 62 % (42-75); PLATELET COUNT 83 10^3/uL (130-400); WHITE BLOOD COUNT 4.6 10^3/uL (4.3-11.0)
[2020-09-26 10:03] LABS: BUN/CREATININE RATIO 20; CALCIUM 9.5 MG/DL (8.5-10.1); CARBON DIOXIDE 27 MMOL/L (21-32); CHLORIDE 103 MMOL/L (98-107); CREATININE SERUM 1.04 MG/DL (0.60-1.30); GFR ESTIMATED > 60; GLUCOSE 287 MG/DL (70-105); POTASSIUM 4.2 MMOL/L (3.6-5.0); SODIUM 140 MMOL/L (135-145)
== END 2020-10-01 | disposition home or self-care (01) ==
LOC: ONC 09:17
PROVIDERS: ATTEND Internal Medicine Hematology & Oncology
DX: D3A.8 Other benign neuroendocrine tumors (principal); C78.7 Secondary malignant neoplasm of liver and intrahepatic bile duct; I10 Essential (primary) hypertension; E78.2 Mixed hyperlipidemia
CPT/HCPCS: 36415; 80048; 80053; 85025; 86316; 96365; 96372

== ENCOUNTER 2020-11-06 13:06 | Outpatient (RCR) | payer MEDICARE ==
[2020-10-03 11:36] LABS: BASOPHILS % (AUTO) 1 % (0-10); EOSINOPHILS # (AUTO) 0.1 10^3/uL (0.0-0.3); EOSINOPHILS % (AUTO) 2 % (0-10); HEMATOCRIT 38 % (40-54); HEMOGLOBIN 12.8 g/dL (13.3-17.7); LYMPHOCYTES # (AUTO) 1.2 10^3/uL (1.0-4.0); LYMPHOCYTES % (AUTO) 36 % (12-44); MEAN CORPUSCULAR HEMOGLOBIN 38 pg (25-34); MEAN CORPUSCULAR HGB CONC 34 g/dL (32-36); MEAN CORPUSCULAR VOLUME 112 fL (80-99); MEAN PLATELET VOLUME 10.6 fL (9.0-12.2); MONOCYTES # (AUTO) 0.3 10^3/uL (0.0-1.0); MONOCYTES % (AUTO) 8 % (0-12); NEUTROPHILS # (AUTO) 1.9 10^3/uL (1.8-7.8); NEUTROPHILS % (AUTO) 54 % (42-75); PLATELET COUNT 109 10^3/uL (130-400); WHITE BLOOD COUNT 3.4 10^3/uL (4.3-11.0)
[2020-10-03 12:04] LABS: BUN/CREATININE RATIO 19; CALCIUM 9.5 MG/DL (8.5-10.1); CARBON DIOXIDE 26 MMOL/L (21-32); CHLORIDE 100 MMOL/L (98-107); CREATININE SERUM 1.04 MG/DL (0.60-1.30); GFR ESTIMATED > 60; GLUCOSE 219 MG/DL (70-105); POTASSIUM 4.3 MMOL/L (3.6-5.0); SODIUM 137 MMOL/L (135-145)
[2020-10-09 11:40] LABS: BASOPHILS % (AUTO) 1 % (0-10); EOSINOPHILS # (AUTO) 0.1 10^3/uL (0.0-0.3); EOSINOPHILS % (AUTO) 1 % (0-10); HEMATOCRIT 38 % (40-54); LYMPHOCYTES # (AUTO) 1.4 10^3/uL (1.0-4.0); LYMPHOCYTES % (AUTO) 38 % (12-44); MEAN CORPUSCULAR HEMOGLOBIN 38 pg (25-34); MEAN CORPUSCULAR HGB CONC 34 g/dL (32-36); MEAN CORPUSCULAR VOLUME 111 fL (80-99); MEAN PLATELET VOLUME 10.3 fL (9.0-12.2); MONOCYTES # (AUTO) 0.3 10^3/uL (0.0-1.0); MONOCYTES % (AUTO) 7 % (0-12); NEUTROPHILS # (AUTO) 1.9 10^3/uL (1.8-7.8); NEUTROPHILS % (AUTO) 53 % (42-75); PLATELET COUNT 101 10^3/uL (130-400); WHITE BLOOD COUNT 3.6 10^3/uL (4.3-11.0)
[2020-10-09 11:59] LABS: CALCIUM 9.8 MG/DL (8.5-10.1); CREATININE SERUM 1.21 MG/DL (0.60-1.30); POTASSIUM 4.6 MMOL/L (3.6-5.0)
[2020-10-17 14:00] LABS: BASOPHILS % (AUTO) 1 % (0-10); EOSINOPHILS # (AUTO) 0.1 10^3/uL (0.0-0.3); EOSINOPHILS % (AUTO) 3 % (0-10); HEMATOCRIT 37 % (40-54); HEMOGLOBIN 12.3 g/dL (13.3-17.7); LYMPHOCYTES % (AUTO) 32 % (12-44); MEAN CORPUSCULAR HEMOGLOBIN 38 pg (25-34); MEAN CORPUSCULAR HGB CONC 34 g/dL (32-36); MEAN CORPUSCULAR VOLUME 113 fL (80-99); MEAN PLATELET VOLUME 10.4 fL (9.0-12.2); MONOCYTES # (AUTO) 0.3 10^3/uL (0.0-1.0); MONOCYTES % (AUTO) 10 % (0-12); NEUTROPHILS # (AUTO) 1.8 10^3/uL (1.8-7.8); NEUTROPHILS % (AUTO) 54 % (42-75); PLATELET COUNT 82 10^3/uL (130-400); WHITE BLOOD COUNT 3.3 10^3/uL (4.3-11.0)
[2020-10-17 14:16] LABS: CHLORIDE 102 MMOL/L (98-107); POTASSIUM 4.6 MMOL/L (3.6-5.0); SODIUM 140 MMOL/L (135-145)
[2020-10-17 14:17] LABS: CALCIUM 9.2 MG/DL (8.5-10.1); GLUCOSE 191 MG/DL (70-105)
[2020-10-17 14:19] LABS: CARBON DIOXIDE 30 MMOL/L (21-32)
[2020-10-17 14:21] LABS: CREATININE SERUM 1.02 MG/DL (0.60-1.30); GFR ESTIMATED > 60
[2020-10-17 14:22] LABS: BUN/CREATININE RATIO 20
[2020-10-25 09:34] LABS: BASOPHILS % (AUTO) 1 % (0-10); EOSINOPHILS # (AUTO) 0.1 10^3/uL (0.0-0.3); EOSINOPHILS % (AUTO) 3 % (0-10); HEMATOCRIT 38 % (40-54); HEMOGLOBIN 12.9 g/dL (13.3-17.7); LYMPHOCYTES # (AUTO) 1.3 10^3/uL (1.0-4.0); LYMPHOCYTES % (AUTO) 40 % (12-44); MEAN CORPUSCULAR HEMOGLOBIN 38 pg (25-34); MEAN CORPUSCULAR HGB CONC 34 g/dL (32-36); MEAN CORPUSCULAR VOLUME 114 fL (80-99); MEAN PLATELET VOLUME 10.6 fL (9.0-12.2); MONOCYTES # (AUTO) 0.3 10^3/uL (0.0-1.0); MONOCYTES % (AUTO) 10 % (0-12); NEUTROPHILS # (AUTO) 1.5 10^3/uL (1.8-7.8); NEUTROPHILS % (AUTO) 47 % (42-75); PLATELET COUNT 100 10^3/uL (130-400); WHITE BLOOD COUNT 3.2 10^3/uL (4.3-11.0)
[2020-10-25 09:53] LABS: ALANINE AMINOTRANSFERASE 21 U/L (0-55); ALBUMIN 4.3 GM/DL (3.2-4.5); ALKALINE PHOSPHATASE 85 U/L (40-136); BILIRUBIN,TOTAL 1.3 MG/DL (0.1-1.0); BUN/CREATININE RATIO 19; CALCIUM 9.2 MG/DL (8.5-10.1); CARBON DIOXIDE 25 MMOL/L (21-32); CHLORIDE 104 MMOL/L (98-107); GFR ESTIMATED > 60; GLUCOSE 240 MG/DL (70-105); POTASSIUM 4.5 MMOL/L (3.6-5.0); SODIUM 140 MMOL/L (135-145); TOTAL PROTEIN 7.2 GM/DL (6.4-8.2)
[2020-10-25 10:26] LABS: SMEAR SCAN COMMENT YES
[2020-10-31 11:50] LABS: BASOPHILS % (AUTO) 0 % (0-10); EOSINOPHILS % (AUTO) 1 % (0-10); HEMATOCRIT 38 % (40-54); HEMOGLOBIN 12.8 g/dL (13.3-17.7); LYMPHOCYTES # (AUTO) 0.5 10^3/uL (1.0-4.0); LYMPHOCYTES % (AUTO) 19 % (12-44); MEAN CORPUSCULAR HEMOGLOBIN 38 pg (25-34); MEAN CORPUSCULAR HGB CONC 34 g/dL (32-36); MEAN CORPUSCULAR VOLUME 112 fL (80-99); MEAN PLATELET VOLUME 10.8 fL (9.0-12.2); MONOCYTES # (AUTO) 0.3 10^3/uL (0.0-1.0); MONOCYTES % (AUTO) 12 % (0-12); NEUTROPHILS # (AUTO) 1.8 10^3/uL (1.8-7.8); NEUTROPHILS % (AUTO) 68 % (42-75); PLATELET COUNT 58 10^3/uL (130-400); WHITE BLOOD COUNT 2.6 10^3/uL (4.3-11.0)
[2020-10-31 12:15] LABS: BUN/CREATININE RATIO 21; CALCIUM 9.2 MG/DL (8.5-10.1); CARBON DIOXIDE 29 MMOL/L (21-32); CHLORIDE 102 MMOL/L (98-107); CREATININE SERUM 0.96 MG/DL (0.60-1.30); GFR ESTIMATED > 60; GLUCOSE 178 MG/DL (70-105); POTASSIUM 4.2 MMOL/L (3.6-5.0); SODIUM 139 MMOL/L (135-145)
[2020-11-06 13:33] LABS: BASOPHILS % (AUTO) 1 % (0-10); EOSINOPHILS # (AUTO) 0.1 10^3/uL (0.0-0.3); EOSINOPHILS % (AUTO) 1 % (0-10); HEMATOCRIT 38 % (40-54); HEMOGLOBIN 12.7 g/dL (13.3-17.7); LYMPHOCYTES # (AUTO) 1.4 10^3/uL (1.0-4.0); LYMPHOCYTES % (AUTO) 37 % (12-44); MEAN CORPUSCULAR HEMOGLOBIN 37 pg (25-34); MEAN CORPUSCULAR HGB CONC 34 g/dL (32-36); MEAN CORPUSCULAR VOLUME 111 fL (80-99); MEAN PLATELET VOLUME 10.6 fL (9.0-12.2); MONOCYTES # (AUTO) 0.3 10^3/uL (0.0-1.0); MONOCYTES % (AUTO) 7 % (0-12); NEUTROPHILS # (AUTO) 2.1 10^3/uL (1.8-7.8); NEUTROPHILS % (AUTO) 55 % (42-75); PLATELET COUNT 95 10^3/uL (130-400); WHITE BLOOD COUNT 3.8 10^3/uL (4.3-11.0)
[2020-11-06 13:55] LABS: ALANINE AMINOTRANSFERASE 16 U/L (0-55); ALBUMIN 4.2 GM/DL (3.2-4.5); ALKALINE PHOSPHATASE 101 U/L (40-136); BILIRUBIN,TOTAL 1.1 MG/DL (0.1-1.0); BUN/CREATININE RATIO 30; CALCIUM 9.7 MG/DL (8.5-10.1); CARBON DIOXIDE 33 MMOL/L (21-32); CHLORIDE 103 MMOL/L (98-107); CREATININE SERUM 0.97 MG/DL (0.60-1.30); GFR ESTIMATED > 60; GLUCOSE 128 MG/DL (70-105); POTASSIUM 4.4 MMOL/L (3.6-5.0); SODIUM 141 MMOL/L (135-145); TOTAL PROTEIN 7.1 GM/DL (6.4-8.2)
[2020-11-13 14:11] LABS: BASOPHILS % (AUTO) 1 % (0-10); EOSINOPHILS # (AUTO) 0.1 10^3/uL (0.0-0.3); EOSINOPHILS % (AUTO) 1 % (0-10); HEMATOCRIT 39 % (40-54); LYMPHOCYTES # (AUTO) 1.3 10^3/uL (1.0-4.0); LYMPHOCYTES % (AUTO) 30 % (12-44); MEAN CORPUSCULAR HEMOGLOBIN 38 pg (25-34); MEAN CORPUSCULAR HGB CONC 34 g/dL (32-36); MEAN CORPUSCULAR VOLUME 112 fL (80-99); MONOCYTES # (AUTO) 0.3 10^3/uL (0.0-1.0); MONOCYTES % (AUTO) 7 % (0-12); NEUTROPHILS # (AUTO) 2.6 10^3/uL (1.8-7.8); NEUTROPHILS % (AUTO) 61 % (42-75); PLATELET COUNT 105 10^3/uL (130-400); WHITE BLOOD COUNT 4.2 10^3/uL (4.3-11.0)
[2020-11-13 14:28] LABS: BUN/CREATININE RATIO 22; CALCIUM 9.6 MG/DL (8.5-10.1); CARBON DIOXIDE 29 MMOL/L (21-32); CHLORIDE 100 MMOL/L (98-107); CREATININE SERUM 1.11 MG/DL (0.60-1.30); GFR ESTIMATED > 60; GLUCOSE 217 MG/DL (70-105); POTASSIUM 4.3 MMOL/L (3.6-5.0); SODIUM 139 MMOL/L (135-145)
== END 2020-11-13 09:32 | disposition home or self-care (01) ==
LOC: ONC 13:06
PROVIDERS: ATTEND Internal Medicine Hematology & Oncology
DX: C7A.1 Malignant poorly differentiated neuroendocrine tumors (principal); C78.7 Secondary malignant neoplasm of liver and intrahepatic bile duct; I10 Essential (primary) hypertension; E78.2 Mixed hyperlipidemia
CPT/HCPCS: 80048; 80053; 85025; 86316; 96365; 96372; 99213

== ENCOUNTER 2021-02-05 11:28 | Outpatient (RCR) | payer MEDICARE ==
[2020-11-20 12:03] LABS: BASOPHILS % (AUTO) 1 % (0-10); EOSINOPHILS # (AUTO) 0.1 10^3/uL (0.0-0.3); EOSINOPHILS % (AUTO) 2 % (0-10); HEMATOCRIT 37 % (40-54); HEMOGLOBIN 12.6 g/dL (13.3-17.7); LYMPHOCYTES % (AUTO) 35 % (12-44); MEAN CORPUSCULAR HEMOGLOBIN 38 pg (25-34); MEAN CORPUSCULAR HGB CONC 34 g/dL (32-36); MEAN CORPUSCULAR VOLUME 112 fL (80-99); MEAN PLATELET VOLUME 10.8 fL (9.0-12.2); MONOCYTES # (AUTO) 0.3 10^3/uL (0.0-1.0); MONOCYTES % (AUTO) 9 % (0-12); NEUTROPHILS # (AUTO) 1.5 10^3/uL (1.8-7.8); NEUTROPHILS % (AUTO) 53 % (42-75); PLATELET COUNT 80 10^3/uL (130-400); WHITE BLOOD COUNT 2.9 10^3/uL (4.3-11.0)
[2020-11-20 12:19] LABS: CHLORIDE 105 MMOL/L (98-107); POTASSIUM 4.4 MMOL/L (3.6-5.0); SODIUM 140 MMOL/L (135-145)
[2020-11-20 12:21] LABS: CALCIUM 9.1 MG/DL (8.5-10.1); GLUCOSE 267 MG/DL (70-105)
[2020-11-20 12:23] LABS: CARBON DIOXIDE 26 MMOL/L (21-32)
[2020-11-20 12:25] LABS: CREATININE SERUM 1.05 MG/DL (0.60-1.30); GFR ESTIMATED > 60
[2020-11-20 12:26] LABS: BUN/CREATININE RATIO 21
[2020-11-27 10:07] LABS: BASOPHILS % (AUTO) 1 % (0-10); EOSINOPHILS # (AUTO) 0.1 10^3/uL (0.0-0.3); EOSINOPHILS % (AUTO) 2 % (0-10); HEMATOCRIT 38 % (40-54); LYMPHOCYTES # (AUTO) 1.2 10^3/uL (1.0-4.0); LYMPHOCYTES % (AUTO) 40 % (12-44); MEAN CORPUSCULAR HEMOGLOBIN 37 pg (25-34); MEAN CORPUSCULAR HGB CONC 34 g/dL (32-36); MEAN CORPUSCULAR VOLUME 110 fL (80-99); MEAN PLATELET VOLUME 10.4 fL (9.0-12.2); MONOCYTES # (AUTO) 0.4 10^3/uL (0.0-1.0); MONOCYTES % (AUTO) 13 % (0-12); NEUTROPHILS # (AUTO) 1.3 10^3/uL (1.8-7.8); NEUTROPHILS % (AUTO) 44 % (42-75); PLATELET COUNT 86 10^3/uL (130-400)
[2020-11-27 10:27] LABS: BUN/CREATININE RATIO 23; CALCIUM 9.3 MG/DL (8.5-10.1); CARBON DIOXIDE 26 MMOL/L (21-32); CHLORIDE 104 MMOL/L (98-107); CREATININE SERUM 1.04 MG/DL (0.60-1.30); GFR ESTIMATED > 60; GLUCOSE 223 MG/DL (70-105); POTASSIUM 4.3 MMOL/L (3.6-5.0); SODIUM 140 MMOL/L (135-145)
[2020-12-04 11:12] LABS: BASOPHILS % (AUTO) 1 % (0-10); EOSINOPHILS # (AUTO) 0.1 10^3/uL (0.0-0.3); EOSINOPHILS % (AUTO) 2 % (0-10); HEMATOCRIT 40 % (40-54); HEMOGLOBIN 13.3 g/dL (13.3-17.7); LYMPHOCYTES # (AUTO) 1.3 10^3/uL (1.0-4.0); LYMPHOCYTES % (AUTO) 33 % (12-44); MEAN CORPUSCULAR HEMOGLOBIN 36 pg (25-34); MEAN CORPUSCULAR HGB CONC 33 g/dL (32-36); MEAN CORPUSCULAR VOLUME 110 fL (80-99); MEAN PLATELET VOLUME 11.1 fL (9.0-12.2); MONOCYTES # (AUTO) 0.4 10^3/uL (0.0-1.0); MONOCYTES % (AUTO) 9 % (0-12); NEUTROPHILS # (AUTO) 2.2 10^3/uL (1.8-7.8); NEUTROPHILS % (AUTO) 55 % (42-75); PLATELET COUNT 85 10^3/uL (130-400); WHITE BLOOD COUNT 3.9 10^3/uL (4.3-11.0)
[2020-12-04 11:39] LABS: ALANINE AMINOTRANSFERASE 15 U/L (0-55); ALBUMIN 4.2 GM/DL (3.2-4.5); ALKALINE PHOSPHATASE 95 U/L (40-136); BILIRUBIN,TOTAL 0.8 MG/DL (0.1-1.0); BUN/CREATININE RATIO 26; CALCIUM 9.4 MG/DL (8.5-10.1); CARBON DIOXIDE 23 MMOL/L (21-32); CHLORIDE 106 MMOL/L (98-107); CREATININE SERUM 0.95 MG/DL (0.60-1.30); GFR ESTIMATED > 60; GLUCOSE 169 MG/DL (70-105); POTASSIUM 4.2 MMOL/L (3.6-5.0); SODIUM 142 MMOL/L (135-145)
[2020-12-11 11:52] LABS: BASOPHILS % (AUTO) 0 % (0-10); EOSINOPHILS # (AUTO) 0.1 10^3/uL (0.0-0.3); EOSINOPHILS % (AUTO) 2 % (0-10); HEMATOCRIT 40 % (40-54); HEMOGLOBIN 13.7 g/dL (13.3-17.7); LYMPHOCYTES # (AUTO) 1.4 10^3/uL (1.0-4.0); LYMPHOCYTES % (AUTO) 30 % (12-44); MEAN CORPUSCULAR HEMOGLOBIN 37 pg (25-34); MEAN CORPUSCULAR HGB CONC 34 g/dL (32-36); MEAN CORPUSCULAR VOLUME 108 fL (80-99); MEAN PLATELET VOLUME 11.1 fL (9.0-12.2); MONOCYTES # (AUTO) 0.3 10^3/uL (0.0-1.0); MONOCYTES % (AUTO) 7 % (0-12); NEUTROPHILS # (AUTO) 2.8 10^3/uL (1.8-7.8); NEUTROPHILS % (AUTO) 61 % (42-75); PLATELET COUNT 87 10^3/uL (130-400); WHITE BLOOD COUNT 4.6 10^3/uL (4.3-11.0)
[2020-12-11 12:05] LABS: BUN/CREATININE RATIO 20; CALCIUM 9.5 MG/DL (8.5-10.1); CARBON DIOXIDE 25 MMOL/L (21-32); CHLORIDE 103 MMOL/L (98-107); CREATININE SERUM 1.05 MG/DL (0.60-1.30); GFR ESTIMATED > 60; GLUCOSE 252 MG/DL (70-105); POTASSIUM 4.2 MMOL/L (3.6-5.0); SODIUM 140 MMOL/L (135-145)
[2020-12-18 14:54] LABS: BASOPHILS % (AUTO) 1 % (0-10); EOSINOPHILS # (AUTO) 0.1 10^3/uL (0.0-0.3); EOSINOPHILS % (AUTO) 3 % (0-10); HEMATOCRIT 41 % (40-54); LYMPHOCYTES # (AUTO) 1.3 10^3/uL (1.0-4.0); LYMPHOCYTES % (AUTO) 29 % (12-44); MEAN CORPUSCULAR HEMOGLOBIN 37 pg (25-34); MEAN CORPUSCULAR HGB CONC 34 g/dL (32-36); MEAN CORPUSCULAR VOLUME 109 fL (80-99); MEAN PLATELET VOLUME 10.6 fL (9.0-12.2); MONOCYTES # (AUTO) 0.2 10^3/uL (0.0-1.0); MONOCYTES % (AUTO) 5 % (0-12); NEUTROPHILS # (AUTO) 2.8 10^3/uL (1.8-7.8); NEUTROPHILS % (AUTO) 62 % (42-75); PLATELET COUNT 103 10^3/uL (130-400); WHITE BLOOD COUNT 4.6 10^3/uL (4.3-11.0)
[2020-12-18 15:12] LABS: CHLORIDE 100 MMOL/L (98-107); POTASSIUM 4.6 MMOL/L (3.6-5.0); SODIUM 140 MMOL/L (135-145)
[2020-12-18 15:13] LABS: CALCIUM 9.8 MG/DL (8.5-10.1)
[2020-12-18 15:14] LABS: GLUCOSE 195 MG/DL (70-105)
[2020-12-18 15:15] LABS: CARBON DIOXIDE 30 MMOL/L (21-32)
[2020-12-18 15:18] LABS: BUN/CREATININE RATIO 21; CREATININE SERUM 1.06 MG/DL (0.60-1.30); GFR ESTIMATED > 60
[2020-12-28 11:57] LABS: BASOPHILS % (AUTO) 1 % (0-10); EOSINOPHILS # (AUTO) 0.1 10^3/uL (0.0-0.3); EOSINOPHILS % (AUTO) 2 % (0-10); HEMATOCRIT 39 % (40-54); HEMOGLOBIN 13.2 g/dL (13.3-17.7); LYMPHOCYTES # (AUTO) 1.1 10^3/uL (1.0-4.0); LYMPHOCYTES % (AUTO) 30 % (12-44); MEAN CORPUSCULAR HEMOGLOBIN 38 pg (25-34); MEAN CORPUSCULAR HGB CONC 34 g/dL (32-36); MEAN CORPUSCULAR VOLUME 109 fL (80-99); MEAN PLATELET VOLUME 10.2 fL (9.0-12.2); MONOCYTES # (AUTO) 0.4 10^3/uL (0.0-1.0); MONOCYTES % (AUTO) 11 % (0-12); NEUTROPHILS % (AUTO) 56 % (42-75); PLATELET COUNT 94 10^3/uL (130-400); WHITE BLOOD COUNT 3.5 10^3/uL (4.3-11.0)
[2020-12-28 12:13] LABS: ALANINE AMINOTRANSFERASE 14 U/L (0-55); ALBUMIN 4.2 GM/DL (3.2-4.5); ALKALINE PHOSPHATASE 82 U/L (40-136); BILIRUBIN,TOTAL 0.9 MG/DL (0.1-1.0); BUN/CREATININE RATIO 25; CALCIUM 9.4 MG/DL (8.5-10.1); CARBON DIOXIDE 28 MMOL/L (21-32); CHLORIDE 104 MMOL/L (98-107); CREATININE SERUM 1.11 MG/DL (0.60-1.30); GFR ESTIMATED > 60; GLUCOSE 171 MG/DL (70-105); POTASSIUM 4.1 MMOL/L (3.6-5.0); SODIUM 141 MMOL/L (135-145)
[2021-01-08 11:53] LABS: BASOPHILS % (AUTO) 1 % (0-10); EOSINOPHILS # (AUTO) 0.2 10^3/uL (0.0-0.3); EOSINOPHILS % (AUTO) 4 % (0-10); HEMATOCRIT 40 % (40-54); HEMOGLOBIN 13.3 g/dL (13.3-17.7); LYMPHOCYTES # (AUTO) 1.3 10^3/uL (1.0-4.0); LYMPHOCYTES % (AUTO) 33 % (12-44); MEAN CORPUSCULAR HEMOGLOBIN 37 pg (25-34); MEAN CORPUSCULAR HGB CONC 34 g/dL (32-36); MEAN CORPUSCULAR VOLUME 110 fL (80-99); MEAN PLATELET VOLUME 10.9 fL (9.0-12.2); MONOCYTES # (AUTO) 0.3 10^3/uL (0.0-1.0); MONOCYTES % (AUTO) 8 % (0-12); NEUTROPHILS # (AUTO) 2.2 10^3/uL (1.8-7.8); NEUTROPHILS % (AUTO) 54 % (42-75); PLATELET COUNT 89 10^3/uL (130-400); WHITE BLOOD COUNT 4.1 10^3/uL (4.3-11.0)
[2021-01-08 12:11] LABS: BUN/CREATININE RATIO 19; CALCIUM 9.3 MG/DL (8.5-10.1); CARBON DIOXIDE 27 MMOL/L (21-32); CHLORIDE 102 MMOL/L (98-107); CREATININE SERUM 1.13 MG/DL (0.60-1.30); GFR ESTIMATED > 60; GLUCOSE 222 MG/DL (70-105); POTASSIUM 4.5 MMOL/L (3.6-5.0); SODIUM 139 MMOL/L (135-145)
[2021-01-15 13:18] LABS: BASOPHILS % (AUTO) 1 % (0-10); EOSINOPHILS # (AUTO) 0.1 10^3/uL (0.0-0.3); EOSINOPHILS % (AUTO) 2 % (0-10); HEMATOCRIT 40 % (40-54); HEMOGLOBIN 13.6 g/dL (13.3-17.7); LYMPHOCYTES # (AUTO) 1.1 10^3/uL (1.0-4.0); LYMPHOCYTES % (AUTO) 30 % (12-44); MEAN CORPUSCULAR HEMOGLOBIN 38 pg (25-34); MEAN CORPUSCULAR HGB CONC 34 g/dL (32-36); MEAN CORPUSCULAR VOLUME 110 fL (80-99); MEAN PLATELET VOLUME 10.8 fL (9.0-12.2); MONOCYTES # (AUTO) 0.3 10^3/uL (0.0-1.0); MONOCYTES % (AUTO) 8 % (0-12); NEUTROPHILS # (AUTO) 2.3 10^3/uL (1.8-7.8); NEUTROPHILS % (AUTO) 60 % (42-75); PLATELET COUNT 82 10^3/uL (130-400); WHITE BLOOD COUNT 3.8 10^3/uL (4.3-11.0)
[2021-01-15 13:38] LABS: BUN/CREATININE RATIO 22; CALCIUM 9.3 MG/DL (8.5-10.1); CARBON DIOXIDE 29 MMOL/L (21-32); CHLORIDE 102 MMOL/L (98-107); CREATININE SERUM 1.12 MG/DL (0.60-1.30); GFR ESTIMATED > 60; GLUCOSE 178 MG/DL (70-105); POTASSIUM 4.7 MMOL/L (3.6-5.0); SODIUM 139 MMOL/L (135-145)
[2021-01-22 14:20] LABS: BASOPHILS % (AUTO) 1 % (0-10); EOSINOPHILS # (AUTO) 0.1 10^3/uL (0.0-0.3); EOSINOPHILS % (AUTO) 2 % (0-10); HEMATOCRIT 38 % (40-54); HEMOGLOBIN 13.2 g/dL (13.3-17.7); LYMPHOCYTES # (AUTO) 1.2 10^3/uL (1.0-4.0); LYMPHOCYTES % (AUTO) 27 % (12-44); MEAN CORPUSCULAR HEMOGLOBIN 38 pg (25-34); MEAN CORPUSCULAR HGB CONC 35 g/dL (32-36); MEAN CORPUSCULAR VOLUME 110 fL (80-99); MEAN PLATELET VOLUME 9.7 fL (9.0-12.2); MONOCYTES # (AUTO) 0.4 10^3/uL (0.0-1.0); MONOCYTES % (AUTO) 10 % (0-12); NEUTROPHILS # (AUTO) 2.7 10^3/uL (1.8-7.8); NEUTROPHILS % (AUTO) 61 % (42-75); PLATELET COUNT 91 10^3/uL (130-400); WHITE BLOOD COUNT 4.4 10^3/uL (4.3-11.0)
[2021-01-22 14:41] LABS: BUN/CREATININE RATIO 22; CALCIUM 9.6 MG/DL (8.5-10.1); CARBON DIOXIDE 29 MMOL/L (21-32); CHLORIDE 103 MMOL/L (98-107); CREATININE SERUM 1.07 MG/DL (0.60-1.30); GFR ESTIMATED > 60; GLUCOSE 162 MG/DL (70-105); POTASSIUM 4.2 MMOL/L (3.6-5.0); SODIUM 141 MMOL/L (135-145)
[2021-01-29 10:47] LABS: BASOPHILS % (AUTO) 1 % (0-10); EOSINOPHILS # (AUTO) 0.1 10^3/uL (0.0-0.3); EOSINOPHILS % (AUTO) 3 % (0-10); HEMATOCRIT 39 % (40-54); HEMOGLOBIN 13.2 g/dL (13.3-17.7); LYMPHOCYTES # (AUTO) 1.3 10^3/uL (1.0-4.0); LYMPHOCYTES % (AUTO) 34 % (12-44); MEAN CORPUSCULAR HEMOGLOBIN 38 pg (25-34); MEAN CORPUSCULAR HGB CONC 34 g/dL (32-36); MEAN CORPUSCULAR VOLUME 111 fL (80-99); MEAN PLATELET VOLUME 10.3 fL (9.0-12.2); MONOCYTES # (AUTO) 0.4 10^3/uL (0.0-1.0); MONOCYTES % (AUTO) 10 % (0-12); NEUTROPHILS % (AUTO) 52 % (42-75); PLATELET COUNT 87 10^3/uL (130-400); WHITE BLOOD COUNT 3.9 10^3/uL (4.3-11.0)
[2021-01-29 11:07] LABS: ALANINE AMINOTRANSFERASE 22 U/L (0-55); ALBUMIN 4.2 GM/DL (3.2-4.5); ALKALINE PHOSPHATASE 82 U/L (40-136); BILIRUBIN,TOTAL 1.8 MG/DL (0.1-1.0); BUN/CREATININE RATIO 18; CALCIUM 9.2 MG/DL (8.5-10.1); CARBON DIOXIDE 25 MMOL/L (21-32); CHLORIDE 104 MMOL/L (98-107); CREATININE SERUM 1.07 MG/DL (0.60-1.30); GFR ESTIMATED > 60; GLUCOSE 237 MG/DL (70-105); POTASSIUM 4.2 MMOL/L (3.6-5.0); SODIUM 141 MMOL/L (135-145); TOTAL PROTEIN 6.9 GM/DL (6.4-8.2)
[2021-02-05 11:46] LABS: BASOPHILS % (AUTO) 1 % (0-10); EOSINOPHILS # (AUTO) 0.2 10^3/uL (0.0-0.3); EOSINOPHILS % (AUTO) 7 % (0-10); HEMATOCRIT 40 % (40-54); HEMOGLOBIN 13.5 g/dL (13.3-17.7); LYMPHOCYTES # (AUTO) 0.9 10^3/uL (1.0-4.0); LYMPHOCYTES % (AUTO) 26 % (12-44); MEAN CORPUSCULAR HEMOGLOBIN 37 pg (25-34); MEAN CORPUSCULAR HGB CONC 34 g/dL (32-36); MEAN CORPUSCULAR VOLUME 110 fL (80-99); MEAN PLATELET VOLUME 11.6 fL (9.0-12.2); MONOCYTES # (AUTO) 0.4 10^3/uL (0.0-1.0); MONOCYTES % (AUTO) 10 % (0-12); NEUTROPHILS # (AUTO) 1.9 10^3/uL (1.8-7.8); NEUTROPHILS % (AUTO) 56 % (42-75); PLATELET COUNT 75 10^3/uL (130-400); WHITE BLOOD COUNT 3.5 10^3/uL (4.3-11.0)
[2021-02-05 12:03] LABS: BUN/CREATININE RATIO 19; CARBON DIOXIDE 26 MMOL/L (21-32); CHLORIDE 104 MMOL/L (98-107); CREATININE SERUM 0.97 MG/DL (0.60-1.30); GFR ESTIMATED > 60; GLUCOSE 246 MG/DL (70-105); SODIUM 139 MMOL/L (135-145)
== END 2021-02-11 | disposition home or self-care (01) ==
LOC: ONC 11:28
PROVIDERS: ATTEND Internal Medicine Hematology & Oncology
DX: C7A.098 Malignant carcinoid tumors of other sites (principal); C78.7 Secondary malignant neoplasm of liver and intrahepatic bile duct; E78.2 Mixed hyperlipidemia; I11.9 Hypertensive heart disease without heart failure; I48.0 Paroxysmal atrial fibrillation; I48.19 Other persistent atrial fibrillation
CPT/HCPCS: 36415; 80048; 80053; 85025; 86316; 96365; 96372

== ENCOUNTER → 2021-02-12 | Outpatient (CLI) | payer MEDICARE ==
[~2021-02-12] MED LIST changes: -OCTREOTIDE LAR 20 MG DISP.SYRIN IM SCH; -ZOLEDRONIC ACID (CANCER CTR) 4 MG in NS (IVPB) CANCER CENTER 100 ML IV SCH
[2021-02-12 12:07] LABS: BASOPHILS % (AUTO) 1 % (0-10); EOSINOPHILS # (AUTO) 0.1 10^3/uL (0.0-0.3); EOSINOPHILS % (AUTO) 2 % (0-10); HEMATOCRIT 39 % (40-54); LYMPHOCYTES # (AUTO) 1.1 10^3/uL (1.0-4.0); LYMPHOCYTES % (AUTO) 28 % (12-44); MEAN CORPUSCULAR HEMOGLOBIN 37 pg (25-34); MEAN CORPUSCULAR HGB CONC 34 g/dL (32-36); MEAN CORPUSCULAR VOLUME 110 fL (80-99); MEAN PLATELET VOLUME 10.4 fL (9.0-12.2); MONOCYTES # (AUTO) 0.5 10^3/uL (0.0-1.0); MONOCYTES % (AUTO) 12 % (0-12); NEUTROPHILS # (AUTO) 2.2 10^3/uL (1.8-7.8); NEUTROPHILS % (AUTO) 57 % (42-75); PLATELET COUNT 68 10^3/uL (130-400); WHITE BLOOD COUNT 3.9 10^3/uL (4.3-11.0)
[2021-02-12 12:33] LABS: ALANINE AMINOTRANSFERASE 16 U/L (0-55); ALKALINE PHOSPHATASE 82 U/L (40-136); BILIRUBIN,TOTAL 1.1 MG/DL (0.1-1.0); BUN/CREATININE RATIO 20; CALCIUM 9.4 MG/DL (8.5-10.1); CARBON DIOXIDE 28 MMOL/L (21-32); CHLORIDE 103 MMOL/L (98-107); CREATININE SERUM 0.98 MG/DL (0.60-1.30); GFR ESTIMATED > 60; GLUCOSE 173 MG/DL (70-105); POTASSIUM 4.1 MMOL/L (3.6-5.0); SODIUM 141 MMOL/L (135-145); TOTAL PROTEIN 6.5 GM/DL (6.4-8.2)
== END ==
LOC: ONC 11:48
PROVIDERS: ATTEND Internal Medicine Hematology & Oncology
DX: C25.9 Malignant neoplasm of pancreas, unspecified (principal); C78.7 Secondary malignant neoplasm of liver and intrahepatic bile duct; E83.52 Hypercalcemia; E86.0 Dehydration; I10 Essential (primary) hypertension; I25.10 Atherosclerotic heart disease of native coronary artery without angina pectoris; E78.1 Pure hyperglyceridemia; E78.2 Mixed hyperlipidemia; I48.0 Paroxysmal atrial fibrillation; I48.21 Permanent atrial fibrillation; E66.9 Obesity, unspecified; Z68.21 Body mass index [BMI] 21.0-21.9, adult; Z79.899 Other long term (current) drug therapy
CPT/HCPCS: 80053; 85025

== ENCOUNTER → 2021-04-10 | Outpatient (CLI) | payer MEDICARE | LOC: LAB 10:59 | PROVIDERS: ATTEND Internal Medicine | DX: E11.9 Type 2 diabetes mellitus without complications (principal) | CPT/HCPCS: 36415; 83036 ==

== ENCOUNTER 2021-05-15 10:54 | Outpatient (RCR) | payer MEDICARE ==
[2021-02-19 11:58] LABS: BASOPHILS % (AUTO) 1 % (0-10); EOSINOPHILS # (AUTO) 0.1 10^3/uL (0.0-0.3); EOSINOPHILS % (AUTO) 2 % (0-10); HEMATOCRIT 40 % (40-54); HEMOGLOBIN 13.3 g/dL (13.3-17.7); LYMPHOCYTES # (AUTO) 1.3 10^3/uL (1.0-4.0); LYMPHOCYTES % (AUTO) 31 % (12-44); MEAN CORPUSCULAR HEMOGLOBIN 37 pg (25-34); MEAN CORPUSCULAR HGB CONC 34 g/dL (32-36); MEAN CORPUSCULAR VOLUME 112 fL (80-99); MEAN PLATELET VOLUME 10.4 fL (9.0-12.2); MONOCYTES # (AUTO) 0.3 10^3/uL (0.0-1.0); MONOCYTES % (AUTO) 7 % (0-12); NEUTROPHILS # (AUTO) 2.4 10^3/uL (1.8-7.8); NEUTROPHILS % (AUTO) 59 % (42-75); PLATELET COUNT 93 10^3/uL (130-400)
[2021-02-19 12:21] LABS: BUN/CREATININE RATIO 20; CALCIUM 9.4 MG/DL (8.5-10.1); CARBON DIOXIDE 31 MMOL/L (21-32); CHLORIDE 102 MMOL/L (98-107); CREATININE SERUM 1.01 MG/DL (0.60-1.30); GFR ESTIMATED > 60; GLUCOSE 167 MG/DL (70-105); POTASSIUM 4.5 MMOL/L (3.6-5.0); SODIUM 140 MMOL/L (135-145)
[2021-02-23 11:21] LABS: BASOPHILS % (AUTO) 1 % (0-10); EOSINOPHILS # (AUTO) 0.1 10^3/uL (0.0-0.3); EOSINOPHILS % (AUTO) 2 % (0-10); HEMATOCRIT 39 % (40-54); HEMOGLOBIN 13.4 g/dL (13.3-17.7); LYMPHOCYTES # (AUTO) 1.2 10^3/uL (1.0-4.0); LYMPHOCYTES % (AUTO) 30 % (12-44); MEAN CORPUSCULAR HEMOGLOBIN 38 pg (25-34); MEAN CORPUSCULAR HGB CONC 34 g/dL (32-36); MEAN CORPUSCULAR VOLUME 111 fL (80-99); MEAN PLATELET VOLUME 9.4 fL (9.0-12.2); MONOCYTES # (AUTO) 0.3 10^3/uL (0.0-1.0); MONOCYTES % (AUTO) 8 % (0-12); NEUTROPHILS # (AUTO) 2.3 10^3/uL (1.8-7.8); NEUTROPHILS % (AUTO) 58 % (42-75); PLATELET COUNT 104 10^3/uL (130-400); WHITE BLOOD COUNT 3.9 10^3/uL (4.3-11.0)
[2021-02-23 11:37] LABS: ALANINE AMINOTRANSFERASE 19 U/L (0-55); ALBUMIN 4.4 GM/DL (3.2-4.5); ALKALINE PHOSPHATASE 70 U/L (40-136); BILIRUBIN,TOTAL 1.5 MG/DL (0.1-1.0); BUN/CREATININE RATIO 24; CALCIUM 9.7 MG/DL (8.5-10.1); CARBON DIOXIDE 27 MMOL/L (21-32); CHLORIDE 104 MMOL/L (98-107); CREATININE SERUM 0.95 MG/DL (0.60-1.30); GFR ESTIMATED > 60; GLUCOSE 113 MG/DL (70-105); POTASSIUM 4.3 MMOL/L (3.6-5.0); SODIUM 143 MMOL/L (135-145); TOTAL PROTEIN 7.2 GM/DL (6.4-8.2)
[2021-03-05 12:40] LABS: BASOPHILS % (AUTO) 1 % (0-10); EOSINOPHILS # (AUTO) 0.1 10^3/uL (0.0-0.3); EOSINOPHILS % (AUTO) 3 % (0-10); HEMATOCRIT 39 % (40-54); HEMOGLOBIN 13.4 g/dL (13.3-17.7); LYMPHOCYTES # (AUTO) 1.1 10^3/uL (1.0-4.0); LYMPHOCYTES % (AUTO) 37 % (12-44); MEAN CORPUSCULAR HEMOGLOBIN 38 pg (25-34); MEAN CORPUSCULAR HGB CONC 34 g/dL (32-36); MEAN CORPUSCULAR VOLUME 110 fL (80-99); MONOCYTES # (AUTO) 0.3 10^3/uL (0.0-1.0); MONOCYTES % (AUTO) 10 % (0-12); NEUTROPHILS # (AUTO) 1.4 10^3/uL (1.8-7.8); NEUTROPHILS % (AUTO) 48 % (42-75); PLATELET COUNT 92 10^3/uL (130-400); WHITE BLOOD COUNT 2.9 10^3/uL (4.3-11.0)
[2021-03-05 13:00] LABS: BUN/CREATININE RATIO 19; CALCIUM 9.8 MG/DL (8.5-10.1); CARBON DIOXIDE 31 MMOL/L (21-32); CHLORIDE 101 MMOL/L (98-107); CREATININE SERUM 0.98 MG/DL (0.60-1.30); GFR ESTIMATED > 60; GLUCOSE 207 MG/DL (70-105); POTASSIUM 4.4 MMOL/L (3.6-5.0); SODIUM 140 MMOL/L (135-145)
[2021-03-12 12:05] LABS: BASOPHILS % (AUTO) 1 % (0-10); EOSINOPHILS # (AUTO) 0.1 10^3/uL (0.0-0.3); EOSINOPHILS % (AUTO) 2 % (0-10); HEMATOCRIT 41 % (40-54); HEMOGLOBIN 13.7 g/dL (13.3-17.7); LYMPHOCYTES % (AUTO) 28 % (12-44); MEAN CORPUSCULAR HEMOGLOBIN 37 pg (25-34); MEAN CORPUSCULAR HGB CONC 33 g/dL (32-36); MEAN CORPUSCULAR VOLUME 111 fL (80-99); MEAN PLATELET VOLUME 10.7 fL (9.0-12.2); MONOCYTES # (AUTO) 0.3 10^3/uL (0.0-1.0); MONOCYTES % (AUTO) 8 % (0-12); NEUTROPHILS # (AUTO) 2.3 10^3/uL (1.8-7.8); NEUTROPHILS % (AUTO) 62 % (42-75); PLATELET COUNT 89 10^3/uL (130-400); WHITE BLOOD COUNT 3.7 10^3/uL (4.3-11.0)
[2021-03-12 12:23] LABS: BUN/CREATININE RATIO 22; CALCIUM 9.2 MG/DL (8.5-10.1); CARBON DIOXIDE 31 MMOL/L (21-32); CHLORIDE 102 MMOL/L (98-107); CREATININE SERUM 1.06 MG/DL (0.60-1.30); GFR ESTIMATED > 60; GLUCOSE 171 MG/DL (70-105); POTASSIUM 4.2 MMOL/L (3.6-5.0); SODIUM 140 MMOL/L (135-145)
[2021-03-19 14:15] LABS: BASOPHILS % (AUTO) 0 % (0-10); EOSINOPHILS # (AUTO) 0.1 10^3/uL (0.0-0.3); EOSINOPHILS % (AUTO) 1 % (0-10); HEMATOCRIT 38 % (40-54); HEMOGLOBIN 12.7 g/dL (13.3-17.7); LYMPHOCYTES # (AUTO) 1.2 X 10^3 (1.0-4.0); LYMPHOCYTES % (AUTO) 30 % (12-44); MEAN CORPUSCULAR HEMOGLOBIN 38 pg (25-34); MEAN CORPUSCULAR HGB CONC 34 g/dL (32-36); MEAN CORPUSCULAR VOLUME 112 fL (80-99); MEAN PLATELET VOLUME 10.7 fL (9.0-12.2); MONOCYTES # (AUTO) 0.3 X 10^3 (0.0-1.0); MONOCYTES % (AUTO) 7 % (0-12); NEUTROPHILS # (AUTO) 2.4 X 10^3 (1.8-7.8); NEUTROPHILS % (AUTO) 61 % (42-75); PLATELET COUNT 85 10^3/uL (130-400); WHITE BLOOD COUNT 3.9 10^3/uL (4.3-11.0)
[2021-03-19 14:31] LABS: BUN/CREATININE RATIO 25; CALCIUM 9.2 MG/DL (8.5-10.1); CARBON DIOXIDE 29 MMOL/L (21-32); CHLORIDE 102 MMOL/L (98-107); CREATININE SERUM 0.89 MG/DL (0.60-1.30); GFR ESTIMATED > 60; GLUCOSE 119 MG/DL (70-105); POTASSIUM 4.5 MMOL/L (3.6-5.0); SODIUM 139 MMOL/L (135-145)
[2021-03-26 12:08] LABS: BASOPHILS % (AUTO) 1 % (0-10); EOSINOPHILS # (AUTO) 0.1 10^3/uL (0.0-0.3); EOSINOPHILS % (AUTO) 3 % (0-10); HEMATOCRIT 39 % (40-54); HEMOGLOBIN 13.2 g/dL (13.3-17.7); LYMPHOCYTES # (AUTO) 1.1 10^3/uL (1.0-4.0); LYMPHOCYTES % (AUTO) 33 % (12-44); MEAN CORPUSCULAR HEMOGLOBIN 38 pg (25-34); MEAN CORPUSCULAR HGB CONC 34 g/dL (32-36); MEAN CORPUSCULAR VOLUME 111 fL (80-99); MONOCYTES # (AUTO) 0.3 10^3/uL (0.0-1.0); MONOCYTES % (AUTO) 10 % (0-12); NEUTROPHILS # (AUTO) 1.7 10^3/uL (1.8-7.8); NEUTROPHILS % (AUTO) 53 % (42-75); PLATELET COUNT 88 10^3/uL (130-400); WHITE BLOOD COUNT 3.3 10^3/uL (4.3-11.0)
[2021-03-26 12:35] LABS: BUN/CREATININE RATIO 18; CALCIUM 9.1 MG/DL (8.5-10.1); CARBON DIOXIDE 29 MMOL/L (21-32); CHLORIDE 102 MMOL/L (98-107); CREATININE SERUM 1.11 MG/DL (0.60-1.30); GFR ESTIMATED > 60; GLUCOSE 204 MG/DL (70-105); POTASSIUM 4.6 MMOL/L (3.6-5.0); SODIUM 138 MMOL/L (135-145)
[2021-04-02 09:46] LABS: BASOPHILS % (AUTO) 1 % (0-10); EOSINOPHILS # (AUTO) 0.1 10^3/uL (0.0-0.3)
[2021-04-02 09:48] LABS: EOSINOPHILS % (AUTO) 4 % (0-10); HEMATOCRIT 41 % (40-54); HEMOGLOBIN 13.9 g/dL (13.3-17.7); LYMPHOCYTES # (AUTO) 1.3 10^3/uL (1.0-4.0); LYMPHOCYTES % (AUTO) 42 % (12-44); MEAN CORPUSCULAR HEMOGLOBIN 38 pg (25-34); MEAN CORPUSCULAR HGB CONC 34 g/dL (32-36); MEAN CORPUSCULAR VOLUME 112 fL (80-99); MEAN PLATELET VOLUME 11.1 fL (9.0-12.2); MONOCYTES # (AUTO) 0.5 10^3/uL (0.0-1.0); MONOCYTES % (AUTO) 16 % (0-12); NEUTROPHILS # (AUTO) 1.1 10^3/uL (1.8-7.8); NEUTROPHILS % (AUTO) 38 % (42-75); PLATELET COUNT 73 10^3/uL (130-400)
[2021-04-02 10:03] LABS: ALANINE AMINOTRANSFERASE 17 U/L (0-55); ALBUMIN 4.3 GM/DL (3.2-4.5); ALKALINE PHOSPHATASE 72 U/L (40-136); BILIRUBIN,TOTAL 1.5 MG/DL (0.1-1.0); BUN/CREATININE RATIO 20; CALCIUM 9.7 MG/DL (8.5-10.1); CARBON DIOXIDE 33 MMOL/L (21-32); CHLORIDE 101 MMOL/L (98-107); CREATININE SERUM 1.05 MG/DL (0.60-1.30); GFR ESTIMATED > 60; GLUCOSE 218 MG/DL (70-105); POTASSIUM 4.8 MMOL/L (3.6-5.0); SODIUM 140 MMOL/L (135-145)
[2021-04-10 11:05] LABS: BASOPHILS % (AUTO) 1 % (0-10); EOSINOPHILS # (AUTO) 0.1 10^3/uL (0.0-0.3); EOSINOPHILS % (AUTO) 4 % (0-10); HEMATOCRIT 40 % (40-54); HEMOGLOBIN 13.6 g/dL (13.3-17.7); LYMPHOCYTES % (AUTO) 30 % (12-44); MEAN CORPUSCULAR HEMOGLOBIN 37 pg (25-34); MEAN CORPUSCULAR HGB CONC 34 g/dL (32-36); MEAN CORPUSCULAR VOLUME 110 fL (80-99); MEAN PLATELET VOLUME 10.3 fL (9.0-12.2); MONOCYTES # (AUTO) 0.4 10^3/uL (0.0-1.0); MONOCYTES % (AUTO) 12 % (0-12); NEUTROPHILS # (AUTO) 1.8 10^3/uL (1.8-7.8); NEUTROPHILS % (AUTO) 53 % (42-75); PLATELET COUNT 75 10^3/uL (130-400); WHITE BLOOD COUNT 3.3 10^3/uL (4.3-11.0)
[2021-04-10 11:29] LABS: BUN/CREATININE RATIO 18; CALCIUM 9.6 MG/DL (8.5-10.1); CARBON DIOXIDE 30 MMOL/L (21-32); CHLORIDE 102 MMOL/L (98-107); CREATININE SERUM 0.92 MG/DL (0.60-1.30); GFR ESTIMATED > 60; GLUCOSE 201 MG/DL (70-105); POTASSIUM 4.2 MMOL/L (3.6-5.0); SODIUM 138 MMOL/L (135-145)
[2021-04-16 11:37] LABS: BASOPHILS % (AUTO) 0 % (0-10); EOSINOPHILS # (AUTO) 0.1 10^3/uL (0.0-0.3); EOSINOPHILS % (AUTO) 1 % (0-10); HEMATOCRIT 38 % (40-54); HEMOGLOBIN 12.7 g/dL (13.3-17.7); LYMPHOCYTES # (AUTO) 1.2 X 10^3 (1.0-4.0); LYMPHOCYTES % (AUTO) 33 % (12-44); MEAN CORPUSCULAR HEMOGLOBIN 37 pg (25-34); MEAN CORPUSCULAR HGB CONC 34 g/dL (32-36); MEAN CORPUSCULAR VOLUME 110 fL (80-99); MEAN PLATELET VOLUME 10.6 fL (9.0-12.2); MONOCYTES # (AUTO) 0.4 X 10^3 (0.0-1.0); MONOCYTES % (AUTO) 12 % (0-12); NEUTROPHILS # (AUTO) 1.9 X 10^3 (1.8-7.8); NEUTROPHILS % (AUTO) 54 % (42-75); PLATELET COUNT 73 10^3/uL (130-400); WHITE BLOOD COUNT 3.5 10^3/uL (4.3-11.0)
[2021-04-16 11:51] LABS: BUN/CREATININE RATIO 23; CALCIUM 9.3 MG/DL (8.5-10.1); CARBON DIOXIDE 28 MMOL/L (21-32); CHLORIDE 103 MMOL/L (98-107); CREATININE SERUM 0.91 MG/DL (0.60-1.30); GFR ESTIMATED > 60; GLUCOSE 150 MG/DL (70-105); POTASSIUM 4.2 MMOL/L (3.6-5.0); SODIUM 139 MMOL/L (135-145)
[2021-04-23 15:42] LABS: BASOPHILS % (AUTO) 0 % (0-10); MONOCYTES # (AUTO) 0.3 10^3/uL (0.0-1.0)
[2021-04-23 15:44] LABS: EOSINOPHILS % (AUTO) 1 % (0-10); HEMATOCRIT 38 % (40-54); HEMOGLOBIN 12.9 g/dL (13.3-17.7); LYMPHOCYTES # (AUTO) 1.1 10^3/uL (1.0-4.0); LYMPHOCYTES % (AUTO) 23 % (12-44); MEAN CORPUSCULAR HEMOGLOBIN 37 pg (25-34); MEAN CORPUSCULAR HGB CONC 34 g/dL (32-36); MEAN CORPUSCULAR VOLUME 109 fL (80-99); MEAN PLATELET VOLUME 9.9 fL (9.0-12.2); MONOCYTES % (AUTO) 7 % (0-12); NEUTROPHILS # (AUTO) 3.3 10^3/uL (1.8-7.8); NEUTROPHILS % (AUTO) 70 % (42-75); PLATELET COUNT 118 10^3/uL (130-400); WHITE BLOOD COUNT 4.8 10^3/uL (4.3-11.0)
[2021-04-23 16:21] LABS: BUN/CREATININE RATIO 22; CALCIUM 9.7 MG/DL (8.5-10.1); CARBON DIOXIDE 30 MMOL/L (21-32); CHLORIDE 100 MMOL/L (98-107); CREATININE SERUM 1.12 MG/DL (0.60-1.30); GFR ESTIMATED > 60; GLUCOSE 287 MG/DL (70-105); POTASSIUM 4.5 MMOL/L (3.6-5.0); SODIUM 139 MMOL/L (135-145)
[2021-05-07 10:28] LABS: HEMOGLOBIN 13.1 g/dL (13.3-17.7); NEUTROPHILS % (AUTO) 61 % (42-75)
[2021-05-07 10:30] LABS: BASOPHILS % (AUTO) 1 % (0-10); EOSINOPHILS # (AUTO) 0.1 10^3/uL (0.0-0.3); EOSINOPHILS % (AUTO) 2 % (0-10); HEMATOCRIT 39 % (40-54); LYMPHOCYTES % (AUTO) 28 % (12-44); MEAN CORPUSCULAR HEMOGLOBIN 38 pg (25-34); MEAN CORPUSCULAR HGB CONC 34 g/dL (32-36); MEAN CORPUSCULAR VOLUME 111 fL (80-99); MONOCYTES # (AUTO) 0.3 10^3/uL (0.0-1.0); MONOCYTES % (AUTO) 8 % (0-12); NEUTROPHILS # (AUTO) 2.1 10^3/uL (1.8-7.8); WHITE BLOOD COUNT 3.4 10^3/uL (4.3-11.0)
[2021-05-07 10:36] LABS: PLATELET COUNT 79 10^3/uL (130-400)
[2021-05-07 10:49] LABS: ALANINE AMINOTRANSFERASE 18 U/L (0-55); ALKALINE PHOSPHATASE 78 U/L (40-136); BILIRUBIN,TOTAL 1.4 MG/DL (0.1-1.0); BUN/CREATININE RATIO 21; CALCIUM 9.2 MG/DL (8.5-10.1); CARBON DIOXIDE 28 MMOL/L (21-32); CHLORIDE 106 MMOL/L (98-107); CREATININE SERUM 0.85 MG/DL (0.60-1.30); GFR ESTIMATED > 60; GLUCOSE 175 MG/DL (70-105); POTASSIUM 4.3 MMOL/L (3.6-5.0); SODIUM 141 MMOL/L (135-145); TOTAL PROTEIN 6.5 GM/DL (6.4-8.2)
[~2021-05-15 10:54] MED LIST changes: +OCTREOTIDE LAR 20 MG DISP.SYRIN IM SCH; +ZOLEDRONIC ACID (CANCER CTR) 4 MG in NS (IVPB) CANCER CENTER 100 ML IV SCH
[2021-05-15 11:06] LABS: WHITE BLOOD COUNT 4.2 10^3/uL (4.3-11.0)
[2021-05-15 11:08] LABS: BASOPHILS % (AUTO) 1 % (0-10); EOSINOPHILS # (AUTO) 0.1 10^3/uL (0.0-0.3); EOSINOPHILS % (AUTO) 2 % (0-10); HEMATOCRIT 39 % (40-54); LYMPHOCYTES # (AUTO) 1.2 10^3/uL (1.0-4.0); LYMPHOCYTES % (AUTO) 28 % (12-44); MEAN CORPUSCULAR HEMOGLOBIN 37 pg (25-34); MEAN CORPUSCULAR HGB CONC 33 g/dL (32-36); MEAN CORPUSCULAR VOLUME 110 fL (80-99); MEAN PLATELET VOLUME 10.7 fL (9.0-12.2); MONOCYTES # (AUTO) 0.4 10^3/uL (0.0-1.0); MONOCYTES % (AUTO) 9 % (0-12); NEUTROPHILS # (AUTO) 2.5 10^3/uL (1.8-7.8); NEUTROPHILS % (AUTO) 60 % (42-75); PLATELET COUNT 85 10^3/uL (130-400)
== END 2021-05-20 | disposition home or self-care (01) ==
LOC: ONC 10:54
PROVIDERS: ATTEND Internal Medicine Hematology & Oncology
DX: D3A.8 Other benign neuroendocrine tumors (principal); C78.7 Secondary malignant neoplasm of liver and intrahepatic bile duct; C80.1 Malignant (primary) neoplasm, unspecified; I10 Essential (primary) hypertension; E78.2 Mixed hyperlipidemia; I48.0 Paroxysmal atrial fibrillation; I48.19 Other persistent atrial fibrillation; I49.5 Sick sinus syndrome; E78.1 Pure hyperglyceridemia; E31.20 Multiple endocrine neoplasia [MEN] syndrome, unspecified; E66.8 Other obesity; Z68.32 Body mass index [BMI] 32.0-32.9, adult; Z88.0 Allergy status to penicillin; Z79.01 Long term (current) use of anticoagulants; Z79.899 Other long term (current) drug therapy; Z88.1 Allergy status to other antibiotic agents; Z88.8 Allergy status to other drugs, medicaments and biological substances
CPT/HCPCS: 36415; 80048; 80053; 85025; 86316; 96365; 96367; 96372; 99213

== ENCOUNTER 2021-07-30 10:51 | Outpatient (RCR) | payer MEDICARE ==
[2021-05-21 14:18] LABS: BASOPHILS % (AUTO) 1 % (0-10); HEMATOCRIT 40 % (40-54); HEMOGLOBIN 13.3 g/dL (13.3-17.7); MEAN CORPUSCULAR HEMOGLOBIN 37 pg (25-34); MEAN CORPUSCULAR HGB CONC 34 g/dL (32-36); MEAN CORPUSCULAR VOLUME 109 fL (80-99)
[2021-05-21 14:19] LABS: EOSINOPHILS % (AUTO) 1 % (0-10); LYMPHOCYTES # (AUTO) 1.3 10^3/uL (1.0-4.0); LYMPHOCYTES % (AUTO) 24 % (12-44); MEAN PLATELET VOLUME 10.7 fL (9.0-12.2); MONOCYTES # (AUTO) 0.3 10^3/uL (0.0-1.0); MONOCYTES % (AUTO) 6 % (0-12); NEUTROPHILS # (AUTO) 3.6 10^3/uL (1.8-7.8); NEUTROPHILS % (AUTO) 68 % (42-75); PLATELET COUNT 98 10^3/uL (130-400); WHITE BLOOD COUNT 5.2 10^3/uL (4.3-11.0)
[2021-05-21 14:36] LABS: BUN/CREATININE RATIO 26; CALCIUM 9.8 MG/DL (8.5-10.1); CARBON DIOXIDE 27 MMOL/L (21-32); CHLORIDE 104 MMOL/L (98-107); GFR ESTIMATED > 60; GLUCOSE 178 MG/DL (70-105); POTASSIUM 4.4 MMOL/L (3.6-5.0); SODIUM 140 MMOL/L (135-145)
[2021-05-28 11:47] LABS: BASOPHILS % (AUTO) 1 % (0-10); EOSINOPHILS % (AUTO) 1 % (0-10); HEMATOCRIT 40 % (40-54); HEMOGLOBIN 13.1 g/dL (13.3-17.7); LYMPHOCYTES # (AUTO) 1.2 10^3/uL (1.0-4.0); LYMPHOCYTES % (AUTO) 31 % (12-44); MEAN CORPUSCULAR HEMOGLOBIN 36 pg (25-34); MEAN CORPUSCULAR HGB CONC 33 g/dL (32-36); MEAN CORPUSCULAR VOLUME 110 fL (80-99); MEAN PLATELET VOLUME 10.3 fL (9.0-12.2); MONOCYTES # (AUTO) 0.3 10^3/uL (0.0-1.0); MONOCYTES % (AUTO) 8 % (0-12); NEUTROPHILS # (AUTO) 2.3 10^3/uL (1.8-7.8); NEUTROPHILS % (AUTO) 59 % (42-75); PLATELET COUNT 98 10^3/uL (130-400); WHITE BLOOD COUNT 3.8 10^3/uL (4.3-11.0)
[2021-05-28 11:56] LABS: CALCIUM 9.1 MG/DL (8.5-10.1); CREATININE SERUM 1.19 MG/DL (0.60-1.30); POTASSIUM 4.4 MMOL/L (3.6-5.0)
[2021-06-04 10:38] LABS: MEAN CORPUSCULAR VOLUME 112 fL (80-99)
[2021-06-04 10:40] LABS: BASOPHILS % (AUTO) 1 % (0-10); EOSINOPHILS # (AUTO) 0.1 10^3/uL (0.0-0.3); EOSINOPHILS % (AUTO) 2 % (0-10); HEMATOCRIT 41 % (40-54); HEMOGLOBIN 13.6 g/dL (13.3-17.7); LYMPHOCYTES % (AUTO) 28 % (12-44); MEAN CORPUSCULAR HEMOGLOBIN 37 pg (25-34); MEAN CORPUSCULAR HGB CONC 33 g/dL (32-36); MEAN PLATELET VOLUME 10.2 fL (9.0-12.2); MONOCYTES # (AUTO) 0.3 10^3/uL (0.0-1.0); MONOCYTES % (AUTO) 10 % (0-12); NEUTROPHILS % (AUTO) 59 % (42-75); PLATELET COUNT 95 10^3/uL (130-400); WHITE BLOOD COUNT 3.4 10^3/uL (4.3-11.0)
[2021-06-04 10:53] LABS: ALBUMIN 4.2 GM/DL (3.2-4.5); BILIRUBIN,TOTAL 0.9 MG/DL (0.1-1.0); CALCIUM 9.3 MG/DL (8.5-10.1); CREATININE SERUM 0.98 MG/DL (0.60-1.30); POTASSIUM 4.1 MMOL/L (3.6-5.0); TOTAL PROTEIN 7.2 GM/DL (6.4-8.2)
[~2021-07-30 10:51] MED LIST changes: +OCTREOTIDE LAR 20 MG DISP.SYRIN IM SCH; +ZOLEDRONIC ACID (CANCER CTR) 4 MG in NS (IVPB) CANCER CENTER 100 ML IV SCH
== END 2021-08-19 | disposition home or self-care (01) ==
LOC: ONC 10:51
PROVIDERS: ATTEND Internal Medicine Hematology & Oncology
DX: Z51.11 Encounter for antineoplastic chemotherapy (principal); C7A.098 Malignant carcinoid tumors of other sites; C78.7 Secondary malignant neoplasm of liver and intrahepatic bile duct; I10 Essential (primary) hypertension; E78.2 Mixed hyperlipidemia; I48.0 Paroxysmal atrial fibrillation; I48.19 Other persistent atrial fibrillation; E78.1 Pure hyperglyceridemia; E83.52 Hypercalcemia; E86.0 Dehydration; E31.20 Multiple endocrine neoplasia [MEN] syndrome, unspecified; E66.8 Other obesity; Z68.32 Body mass index [BMI] 32.0-32.9, adult; Z88.0 Allergy status to penicillin; Z79.01 Long term (current) use of anticoagulants; Z79.899 Other long term (current) drug therapy; Z88.1 Allergy status to other antibiotic agents; Z88.8 Allergy status to other drugs, medicaments and biological substances
CPT/HCPCS: 36415; 80048; 80053; 83615; 85025; 86316; 96365; 96372

== ENCOUNTER → 2021-07-30 | Outpatient (CLI) | payer MEDICARE ==
[~2021-07-30] MED LIST changes: -OCTREOTIDE LAR 20 MG DISP.SYRIN IM SCH; -ZOLEDRONIC ACID (CANCER CTR) 4 MG in NS (IVPB) CANCER CENTER 100 ML IV SCH
[2021-07-30 11:34] LABS: CHOLESTEROL 133 MG/DL (< 200); HDL CHOLESTEROL 54 MG/DL (40-60); TRIGLYCERIDES 55 MG/DL (<150); VLDL CHOLESTEROL 11 MG/DL (5-40)
== END ==
LOC: LAB 10:55
PROVIDERS: ATTEND Internal Medicine Cardiovascular Disease
DX: E78.2 Mixed hyperlipidemia (principal)
CPT/HCPCS: 36415; 80061

== ENCOUNTER 2021-10-22 10:06 | Outpatient (RCR) | payer MEDICARE ==
[2021-08-27 11:17] LABS: BASOPHILS % (AUTO) 0 % (0-10); HEMOGLOBIN 14.1 g/dL (13.3-17.7); MEAN CORPUSCULAR VOLUME 102 fL (80-99); MONOCYTES # (AUTO) 0.4 10^3/uL (0.0-1.0); PLATELET COUNT 99 10^3/uL (130-400)
[2021-08-27 11:19] LABS: EOSINOPHILS # (AUTO) 0.1 10^3/uL (0.0-0.3); EOSINOPHILS % (AUTO) 2 % (0-10); HEMATOCRIT 43 % (40-54); LYMPHOCYTES # (AUTO) 1.2 10^3/uL (1.0-4.0); LYMPHOCYTES % (AUTO) 25 % (12-44); MEAN CORPUSCULAR HEMOGLOBIN 34 pg (25-34); MEAN CORPUSCULAR HGB CONC 33 g/dL (32-36); MEAN PLATELET VOLUME 10.5 fL (9.0-12.2); MONOCYTES % (AUTO) 8 % (0-12); NEUTROPHILS # (AUTO) 3.2 10^3/uL (1.8-7.8); NEUTROPHILS % (AUTO) 65 % (42-75)
[2021-08-27 11:38] LABS: BILIRUBIN,TOTAL 0.9 MG/DL (0.1-1.0); CALCIUM 9.8 MG/DL (8.5-10.1); CREATININE SERUM 0.96 MG/DL (0.60-1.30); POTASSIUM 4.4 MMOL/L (3.6-5.0); TOTAL PROTEIN 6.8 GM/DL (6.4-8.2)
== END 2021-11-09 | disposition home or self-care (01) ==
LOC: ONC 10:06
PROVIDERS: ATTEND Internal Medicine Hematology & Oncology
DX: Z51.11 Encounter for antineoplastic chemotherapy (principal); C7A.098 Malignant carcinoid tumors of other sites; C78.7 Secondary malignant neoplasm of liver and intrahepatic bile duct; I10 Essential (primary) hypertension; E78.2 Mixed hyperlipidemia; E78.1 Pure hyperglyceridemia; E83.52 Hypercalcemia; E66.8 Other obesity; Z68.32 Body mass index [BMI] 32.0-32.9, adult; Z79.01 Long term (current) use of anticoagulants; Z79.899 Other long term (current) drug therapy
CPT/HCPCS: 80053; 83615; 85025; 86316; 96365; 96372; G0463

== ENCOUNTER 2021-11-19 11:00 | Outpatient (RCR) | payer MEDICARE ==
[2021-11-19 11:41] LABS: LYMPHOCYTES # (AUTO) 1.2 10^3/uL (1.0-4.0)
[2021-11-19 11:46] LABS: BASOPHILS % (AUTO) 0 % (0-10); EOSINOPHILS % (AUTO) 1 % (0-10); HEMATOCRIT 43 % (40-54); HEMOGLOBIN 14.4 g/dL (13.3-17.7); LYMPHOCYTES % (AUTO) 26 % (12-44); MEAN CORPUSCULAR HEMOGLOBIN 33 pg (25-34); MEAN CORPUSCULAR HGB CONC 33 g/dL (32-36); MEAN CORPUSCULAR VOLUME 100 fL (80-99); MEAN PLATELET VOLUME 10.9 fL (9.0-12.2); MONOCYTES # (AUTO) 0.3 10^3/uL (0.0-1.0); MONOCYTES % (AUTO) 6 % (0-12); NEUTROPHILS % (AUTO) 66 % (42-75); PLATELET COUNT 124 10^3/uL (130-400); WHITE BLOOD COUNT 4.6 10^3/uL (4.3-11.0)
[2021-11-19 11:59] LABS: ALBUMIN 4.1 GM/DL (3.2-4.5); BILIRUBIN,TOTAL 0.9 MG/DL (0.1-1.0); CALCIUM 9.6 MG/DL (8.5-10.1); CREATININE SERUM 0.94 MG/DL (0.60-1.30); POTASSIUM 4.5 MMOL/L (3.6-5.0); TOTAL PROTEIN 6.9 GM/DL (6.4-8.2)
== END 2021-12-10 | disposition home or self-care (01) ==
LOC: ONC 11:00
PROVIDERS: ATTEND Internal Medicine Hematology & Oncology
DX: C7A.098 Malignant carcinoid tumors of other sites (principal); C78.7 Secondary malignant neoplasm of liver and intrahepatic bile duct; I11.9 Hypertensive heart disease without heart failure; E78.2 Mixed hyperlipidemia; E78.1 Pure hyperglyceridemia; E83.52 Hypercalcemia; I48.0 Paroxysmal atrial fibrillation; I48.19 Other persistent atrial fibrillation; E66.9 Obesity, unspecified; Z68.32 Body mass index [BMI] 32.0-32.9, adult; Z79.01 Long term (current) use of anticoagulants; Z79.899 Other long term (current) drug therapy; Z45.2 Encounter for adjustment and management of vascular access device
CPT/HCPCS: 80053; 85025; 96365; 96372; G0463; 36415

== ENCOUNTER → 2022-01-03 | Outpatient (CLI) | payer MEDICARE ==
[~2022-01-03] MED LIST changes: -OCTREOTIDE LAR 20 MG DISP.SYRIN IM SCH; -ZOLEDRONIC ACID (CANCER CTR) 4 MG in NS (IVPB) CANCER CENTER 100 ML IV SCH
== END ==
LOC: CARD 13:00
PROVIDERS: ATTEND Internal Medicine Cardiovascular Disease
DX: I10 Essential (primary) hypertension (principal); I25.10 Atherosclerotic heart disease of native coronary artery without angina pectoris; I08.3 Combined rheumatic disorders of mitral, aortic and tricuspid valves
CPT/HCPCS: 93306

== ENCOUNTER → 2023-01-16 | Outpatient (CLI) | payer MEDICARE | LOC: CARD 12:34 | PROVIDERS: ATTEND Internal Medicine Cardiovascular Disease | DX: I08.0 Rheumatic disorders of both mitral and aortic valves (principal); I11.9 Hypertensive heart disease without heart failure; I25.10 Atherosclerotic heart disease of native coronary artery without angina pectoris | CPT/HCPCS: 93306 ==